=== PATIENT | female | born 1965 | race Caucasian/White ===

== ENCOUNTER 2021-10-27 13:07 | Outpatient (CLI) | payer MEDICARE, SELFPAY | END 2021-10-27 13:08 | disposition home or self-care (01) | LOC: NFLDREF 13:08 | PROVIDERS: PCP Internal Medicine; Visit Provider Internal Medicine | DX: E03.9 Hypothyroidism, unspecified (principal) | CPT/HCPCS: 84443 ==

== ENCOUNTER 2022-04-11 10:16 | Outpatient (CLI) | payer MEDICARE, SELFPAY ==
[2022-04-11 15:05] LABS: Albumin* 4.9 g/dL (3.3-5.0); Chloride* 104 mmol/L (96-114); Potassium* 4.5 mmol/L (3.6-5.1); Sodium* 139 mmol/L (135-149)
[2022-04-11 15:07] LABS: Bilirubin Total* 0.8 mg/dL (0.1-1.5); Carbon Dioxide* 26 mmol/L (20-32); Creatinine* 0.8 mg/dL (0.5-1.5); Estimated Glomerular Filt Rate 85 ml/min
[2022-04-11 15:08] LABS: Alanine Aminotransferase* 22 U/L (4-35); Alkaline Phosphatase* 101 U/L (40-150); Aspartate Amino Transferase* 43 U/L (12-35); Blood Urea Nitrogen* 18 mg/dL (7-30); Calcium* 9.4 mg/dL (8.4-10.6); Glucose* 90 mg/dL (60-115); Total Protein* 7.1 g/dL (6.0-8.3)
[2022-04-12 20:13] LABS: Immunoglobulin A 45 mg/dL (68-408); Immunoglobulin G 174 mg/dL (768-1632); Immunoglobulin M 41 mg/dL (35-263)
--- NOTE | 2022-05-05 12:38 | URNOTE ---
Received request for prior auth for Privigen ([id number]). Per Aaron Green at [facility], this has been approved, 15gms monthly x 4 doses, 05/03/2022-05/03/2023 Auth #[id number]
== END 2022-04-11 10:17 | disposition home or self-care (01) ==
PROVIDERS: PCP Internal Medicine; Visit Provider Internal Medicine
DX: G35 Multiple sclerosis (principal); I10 Essential (primary) hypertension; E03.9 Hypothyroidism, unspecified; R94.31 Abnormal electrocardiogram [ECG] [EKG]
CPT/HCPCS: 80053; 82784

== ENCOUNTER 2022-05-12 10:12 | Emergency (ER) | payer MEDICARE, SELFPAY ==
[2022-05-12 10:22] VITALS: BP 132/85; PULSE 84; RESP 22; TEMP 37.4; O2SAT 98; BMI 18.3
[2022-05-12] MEDS: LORazepam 2 MG/ML inj 0.5 MG IVP (11:50)
[2022-05-12] MEDS: 0.9 % SODIUM CHLORIDE 1000 ml 1,000 ML IV (11:50)
[2022-05-12 12:14] LABS: Basophils Absolute Auto 0.05 K/uL (0.00-0.30); Basophils Percent Auto 0.8 % (0.0-3.0); Eosinophils Absolute Auto 0.08 K/uL (0.00-0.50); Eosinophils Percent Auto 1.4 % (0.0-7.0); Hematocrit 39.3 % (33.0-51.0); Hemoglobin* 13.3 gm/dL (12.0-16.0); Immature Granulocytes Abs Auto 0.01 K/uL (0.00-0.30); Immature Granulocytes Pct Auto 0.2 %; Lymphocytes Percent Auto 28.8 % (20-44); Mean Corpuscular HGB Conc 34 gm/dL (32-36); Mean Corpuscular Hemoglobin 31 pg (26-34); Mean Corpuscular Volume 92 fL (80-100); Monocytes Percent Auto 7.6 % (0.0-11.0); Neutrophils Absolute Auto 3.62 K/uL (1.7-7.0); Neutrophils Percent Auto 61.2 % (42.0-72.0); Platelet Count* 208 K/uL (140-440); RDW Coefficient of Variation % 12.5 % (11.5-15.5); Red Blood Count 4.28 m/uL (4.00-5.20); White Blood Count* 5.91 K/uL (4.50-11.00)
[2022-05-12 12:22] LABS: Slide Review Reflex No
[2022-05-12 12:41] LABS: Chloride* 104 mmol/L (96-114); Potassium* 3.4 mmol/L (3.6-5.1); Sodium* 137 mmol/L (135-149)
[2022-05-12 12:44] LABS: Creatinine* 0.8 mg/dL (0.5-1.5); Est. Creatinine Clearance* 54.89; Estimated Glomerular Filt Rate 85 ml/min
[2022-05-12 12:45] LABS: Blood Urea Nitrogen* 17 mg/dL (7-30); Calcium* 8.7 mg/dL (8.4-10.6); Carbon Dioxide* 31 mmol/L (20-32); Glucose* 88 mg/dL (60-115)
[2022-05-12 12:48] LABS: C Reactive Protein* < 0.5 mg/dL (0.5-1.0)
--- NOTE | 2022-05-12 13:39 | ED_ITS ---
HPI - General Adult General Date Seen: 05/12/22 Chief complaint: Nausea/Vomiting Stated [facility], dizzy Time Seen by Provider: 05/12/22 11:01 Source: patient and family Mode of arrival: ambulatory Limitations: no limitations History of Present Illness HPI narrative: Patient is a 56-year-old female who was seen for dizziness and generalized weakness, [facility] to get her infusion of immunoglobulin, she felt so weak and was dizzy, and they sent her over here, she does have some Compazine she can use at home. Before her primary care doctor could call back to the [facility] she had been transferred to the emergency room. She denies a fevers chills she says she gets this dizziness from time to time, usually related to exacerbation of her MS. She has been found to have a very low level of immunoglobulin a, and thought to be improved with the infusion of IVIG. Denies any headaches, does have some diplopia but this is secondary to her MS. She she has no new numbness tingling or weakness, no vomiting, no fevers no chills, sore throat, diarrhea, abdominal pain, or any other real complaints. Related Data Home Medications Medication Instructions Recorded Confirmed albuterol sulfate 90 mcg/actuation 2 inhalation PRN 10/27/21 05/02/22 aerosol inhaler amlodipine 10 mg tablet 10 mg PO DAILY 10/27/21 05/02/22 gabapentin 100 mg capsule 100 mg PO TID 10/27/21 05/02/22 levothyroxine 75 mcg tablet 75 mcg PO DAILY 10/27/21 05/02/22 quetiapine 100 mg tablet 50 - 150 mg PO QHS 04/26/22 05/02/22 Previous Rx's Medication Instructions Recorded paroxetine HCl 10 mg tablet 10 mg PO QDAY Depression #90 tabs 03/02/22 paroxetine HCl 40 mg tablet 40 mg PO .Bedtime Anxiety #90 tabs 03/02/22 carbamazepine 100 mg 1 mg PO TID Pain #90 tabs 03/15/22 tablet,extended release,12 hr hydrochlorothiazide 12.5 mg tablet 12.5 mg PO QAM Hypertension #30 04/11/22 tabs prochlorperazine maleate 10 mg 10 mg PO BID PRN nausea and 05/12/22 tablet (Compazine) vomiting #30 tabs Allergies Allergy/AdvReac Type Severity Reaction Status Date / Time bupropion Allergy Severe Shock Verified 05/02/22 14:14 fluoxetine Allergy Severe Shock Verified 05/02/22 14:14 penicillin V Allergy Severe Anaphylaxis Verified 05/02/22 14:14 gadodiamide Allergy Mild Swelling Verified 05/02/22 14:14 on face and hives Sulfa drugs Allergy Severe Anaphylaxis Uncoded 05/02/22 14:14 Contrast dye Allergy Mild Swelling Uncoded 05/02/22 14:14 on face and hives Review of Systems Status of ROS: Reports: 10 or more systems reviewed and unremarkable except as noted in History and below [facility] Medical History Depression Graves disease Hypertension Hypothyroidism Nausea QT prolongation Social History Smoking Status: Never smoker Do you use any of these nicotine containing products: None Second hand tobacco smoke exposure: No How often do you have a drink containing alcohol: 4 or more times a week How many standard drinks containing alcohol do you have on a typical day: 1 or 2 How often do you have six or more drinks on one occasion: Never AUDIT-C Alcohol total score: 4 Non-prescribed substance use: denies use service: No Exam Narrative: Exam Narrative: Patient is speaking normally, no problem with slurring words, oriented x3. Head eyes ears nose and throat exam show equal pupils, no scleral icterus, extraocular muscles are normal, no facial droop, speech is normal, trachea normal and midline. Thyroid normal midline palpable not enlarged. Chest shows symmetrical rise bilaterally, normal auscultation with no wheezes, no increased work of breathing, no overt bruising or lesions seen, no tenderness is noted on auscultation. Heart sounds normal with no S3-S4 no murmurs clicks or gallops. Abdomen shows no obvious masses or hepatosplenomegaly, no organomegaly, bowel sounds are normal in all quadrants. No tenderness is noted also in all quadrants. Upper and lower extremities show normal power, normal range of motion, pulses are normal, sensations normal, fine motor movements are normal, pelvis is stable to rocking. Cervical spine shows normal range of motion, and palpably not tender. Thoracic spine shows normal range of motion, and palpably not tender, lumbar spine shows no tenderness to palpation percussion and is otherwise normal range of motion. Skin shows no rashes, petechiae or eccymosis. Const: Vital Signs, click to edit/add: Vital Signs - 24 hr 05/12/22 10:22 Temperature 99.4 F Pulse Rate [Pulse Oximeter] 84 Respiratory Rate 22 Blood Pressure [Ri ght Upper Arm] 132/85 Pulse Oximetry 98 Oxygen Delivery Me thod Room Air Documenting provider has reviewed patient's vital signs: yes Course Course Hospital Course: Life-threatening differential diagnosis considered include stroke, coronary artery disease, pneumonia, and heart failure. Other differential diagnosis include but are not limited to electrolyte imbalances, anemia, medication reactions, and urinary tract infection After 1 L of fluids and the lorazepam she felt improved was able to walk to the bathroom but still felt a little bit dizzy. She would like to go home, tried some crackers and this seemed to go right. I will give her prescription for some lorazepam, I did review the [employer] and she does not have any prescriptions for listed substances. I went over warning signs with this but I think this would be a decent anti nausea medication for us she does have prolonged QT syndrome any of the others can cause worsening of this. Vital Signs Vital signs: Initial Vital Signs Temperature 99.4 F 05/12/22 10:22 Temperature Source Temporal Artery Scan 05/12/22 10:22 Pulse Rate 84 05/12/22 10:22 Pulse Rhythm 05/12/22 10:22 Respiratory Rate 22 05/12/22 10:22 Blood Pressure 132/85 05/12/22 10:22 Blood Pressure Mean 100 05/12/22 10:22 Blood Pressure Position Left Lateral 05/12/22 10:22 Pulse Oximetry 98 05/12/22 10:22 Oxygen Delivery Method 05/12/22 10:22 Vital Signs Temperature 99.4 F 05/12/22 10:22 Pulse Rate 84 05/12/22 10:22 Respiratory Rate 22 05/12/22 10:22 Blood Pressure 132/85 05/12/22 10:22 Pulse Oximetry 98 05/12/22 10:22 Oxygen Delivery Method 05/12/22 10:22 Temperature 99.4 F 05/12/22 10:22 Pulse Rate 84 05/12/22 10:22 Respiratory Rate 22 05/12/22 10:22 Blood Pressure 132/85 05/12/22 10:22 Pulse Oximetry 98 05/12/22 10:22 Oxygen Delivery Method 05/12/22 10:22 Medical Decision Making MDM Narrative Medical decision making narrative: Life-threatening differential diagnosis considered include stroke, coronary artery disease, pneumonia, and heart failure. Other differential diagnosis include but are not limited to electrolyte imbalances, anemia, medication reactions, and urinary tract infection Lab Data Lab results reviewed: Yes I reviewed the patient's lab results Labs: Lab Results 05/12/22 05/12/22 Range/Units 11:45 11:45 WBC 5.91 (4.50-11.00) K/uL RBC 4.28 (4.00-5.20) m/uL Hgb 13.3 (12.0-16.0) gm/dL Hct 39.3 (33.0-51.0) % MCV 92 (80-100) fL MCH 31 (26-34) pg MCHC 34 (32-36) gm/dL RDW Coeff of Estrellita 12.5 (11.5-15.5) % Plt Count 208 (140-440) K/uL Neut % (Auto) 61.2 (42.0-72.0) % Lymph % (Auto) 28.8 (20-44) % [place] % (Auto) 7.6 (0.0-11.0) % Eos % (Auto) 1.4 (0.0-7.0) % Baso % (Auto) 0.8 (0.0-3.0) % Neut # (Auto) 3.62 (1.7-7.0) K/uL Lymph # (Auto) 1.70 (0.90-2.90) K/uL [place] # (Auto) 0.40 (0.00-0.90) K/UL Eos # (Auto) 0.08 (0.00-0.50) K/uL Baso # (Auto) 0.05 (0.00-0.30) K/uL Sodium 137 (135-149) mmol/L Potassium 3.4 L (3.6-5.1) mmol/L Chloride 104 (96-114) mmol/L Carbon Dioxide 31 (20-32) mmol/L BUN 17 (7-30) mg/dL Creatinine 0.8 (0.5-1.5) mg/dL Estimated Creat Clear 54.89 Estimated GFR 85 ml/min Glucose 88 (60-115) mg/dL Calcium 8.7 (8.4-10.6) mg/dL C-Reactive Protein < 0.5 L (0.5-1.0) mg/dL Discharge Plan Discharge Clinical Impression: Dizziness, Multiple sclerosis Patient Disposition: Home w/ Parent or Adult Condition: Improved Instructions: Vertigo (ED), Lightheadedness (ED), Dizziness (ED) Additional Instructions: Home rest use of lorazepam as needed, lots of fluids, follow-up for your infusion of your immunoglobulin. As needed. Prescriptions: No Action albuterol sulfate 90 mcg/actuation HFA aerosol inhaler 2 inhalation PRN levothyroxine 75 mcg tablet 75 mcg PO DAILY amlodipine 10 mg tablet 10 mg PO DAILY gabapentin 100 mg capsule 100 mg PO TID quetiapine 100 mg tablet 50 - 150 mg PO QHS Label Comments: TAKE ONE-HALF TO 1.5 TABLETS BY MOUTH EVERY NIGHT AT BEDTIME hydrochlorothiazide 12.5 mg tablet 12.5 mg PO QAM Qty: 30 2RF paroxetine HCl 10 mg tablet 10 mg PO QDAY Qty: 90 3RF paroxetine HCl 40 mg tablet 40 mg PO .Bedtime Qty: 90 3RF carbamazepine 100 mg tablet extended release 12 hr 1 mg PO TID Qty: 90 2RF prochlorperazine maleate [Compazine] 10 mg tablet 10 mg PO BID PRN (Reason: nausea and vomiting) Qty: 30 0RF Follow Up/Referrals: Nguyễn Orta MD [Primary Care Provider] - Stand Alone Forms: [employer] Info Instructions
== END 2022-05-12 13:52 | disposition home or self-care (01) ==
PROVIDERS: Emergency Provider Family Medicine; PCP Internal Medicine
DX: R42 Dizziness and giddiness (principal); G35 Multiple sclerosis
CPT/HCPCS: 36415; 80048; 85025; 86140; 96374; 99283; 99284; J2060; J7030

== ENCOUNTER 2022-06-16 11:00 | Outpatient (RCR) | payer MEDICARE, SELFPAY ==
--- NOTE | 2022-05-09 12:13 | URNOTE ---
Request received for authorization for?Jesus ([id number]). Prior authorization is approved for Privigen 15gms Q month X4 doses from 05/03/2022 to 05/03/2023. Per Aaron Green at [facility] [phone], Ref # [id number].
--- NOTE | 2022-05-09 13:30 | ONC.NURNOTE ---
The following note was found from the [employer] system: User: Danitza Quezada Date: 04/19/21 16:07 Type: Oncology Nurse Notes Received call from Bridgett with Dr. Rbuy Michel with [employer]. Pt seen by provider today. Pt to begin a different medication to treat MS; cancel all orders/appts for Ocrevus and IVIG. Appt's cancelled; pharmacy updated. Patient was then called to clarify that Dr. Michel was okay with this being prescribed, and patient states that Dr. Michel never wanted her off of this drug and she is getting this for low immunoglobins. Levels are low per labs checked by Dr. Orta. 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 She is scheduled at 1000, and she would have the two hours that she feels that are needed to stay in clinic if requested. Patient was notified that there are no guidelines in clinicalpharmacology stating that this is needed and in writers experience, patients tolerate this well. She was informed that she will be getting benadryl and that could cause drowsiness with driving following her infusion.
[2022-05-12 09:35] VITALS: BP 143/89; PULSE 83; RESP 16; TEMP 36.7; O2SAT 99
--- NOTE | 2022-05-12 10:42 | ONC.NURNOTE ---
Pt. arrived at 0930. assestment and vs wnl. patient requested the menu to order food. she also states forgot compazine at home. call placed to Dr. Orta in [facility] for Compazine. IVIG ordered and Pt given banadryl 50 po and tylenol 650 po. 1010 pt states nausea has increased. aprox 10cc bile in emesis bag. pt then asked to lay on the floor . states she feels dizzy. told her I was not comfortable treating her today and offered to take her to ER via w/c. pt stated yes. pt brought to ER via w/c. nurse to nurse report given to Glenna Muñoz RN. with pt. Alexandria Mckeon APRN aware and states pt should wait a week before attempting another IVIG treatment. Till she feels better. Dr. Orta aware.
[2022-05-19 10:06] LABS: Cholesterol* 249 mg/dL (90-199); Triglycerides* 69 mg/dL (40-149)
--- NOTE | 2022-05-19 10:10 | PC.NURSE ---
Addendum entered by Christina Beasley, TIO 05/19/22 11:56: Dr. Michel's nurse, Abelardo (direct) - [phone] Original Note: Provider contacts: Dr. Ruby Michel, neurologist [facility] - [phone] Jose David Ibanez, psychologist - [phone]
[2022-05-19 10:19] LABS: HDL Cholesterol* 133 mg/dL (>=50); LDL Cholesterol Calculated 102 mg/dL (<100)
[2022-05-19 10:28] VITALS: BP 123/86; PULSE 90; RESP 16; TEMP 37.1; O2SAT 96
[2022-05-19] MEDS: diphenhydrAMINE 25 MG CAPSULE 50 MG PO (10:41)
[2022-05-19] MEDS: ACETAMINOPHEN 325 MG TABLET 650 MG PO (10:41)
--- NOTE | 2022-05-19 15:59 | PC.NURSE ---
Pt present at [facility] for Privigen infusion. About 2 minutes after increasing rate from 56 cc per hour to 112 cc per hour pt called reporting burning and itching in her right medial arm. There was slight redness noted, also noted was that pt was rubbing the area to explain the sensations. Pt's peripheral IV was in her RIGHT lateral hand in a vein that appeared to dip down below the lateral wrist after the hand. Stopped infusion. Discussed with RN's and [employer]PERATIONS [employer]NAG[employer]. Applied ice and restarted infusion at the lower rate (56 cc per hour) for the completion of the infusion. Pt tolerated well.
[2022-06-16 10:51] VITALS: BP 130/90; PULSE 94; RESP 16; TEMP 37.1; O2SAT 96
[2022-06-16] MEDS: diphenhydrAMINE 25 MG CAPSULE 50 MG PO (11:02)
[2022-06-16] MEDS: ACETAMINOPHEN 325 MG TABLET 650 MG PO (11:02)
--- NOTE | 2022-07-13 11:16 | ONC.NURNOTE ---
Patient called to cancel her appointment for IVIG tomorrow. She is having issues following her infusions where she does not feel well for about one week following them. She talked with her commercial parts professional and they are doing blood work at their office to come up with a plan.
== END 2022-11-08 23:59 | disposition home or self-care (01) ==
LOC: CCIC 11:00
PROVIDERS: PCP Internal Medicine; Referring Provider Internal Medicine; Visit Provider Internal Medicine
DX: G35 Multiple sclerosis (principal)
CPT/HCPCS: 36415; 80061; 96365; 96366; 96413; 96415; 99211; A9270; J1459

== ENCOUNTER 2022-10-16 10:22 | Observation (INO) | payer MEDICARE, SELFPAY ==
[2022-10-16] VITALS (7 sets, daily range): BP systolic 127–156; BP diastolic 88–107; PULSE 70–91; RESP 16–22; TEMP 36.5–37; O2SAT 98–100; BMI 19.5; BMI 18.0
--- NOTE | 2022-10-16 11:01 | ED_ITS ---
HPI - Back Pain/Injury General Time Seen by Provider: 11:01 Date Seen: 10/16/22 Chief Complaint: Back Injury/Pain Stated Complaint: leg numbness Time Seen by Provider: 10/16/22 10:29 Source: patient and RN notes reviewed Mode of arrival: ambulatory Limitations: no limitations Related Data Home Medications Medication Instructions Recorded Confirmed albuterol sulfate 90 mcg/actuation 2 inh inhalation Q4H PRN 10/27/21 10/16/22 aerosol inhaler amlodipine 10 mg tablet 10 mg PO DAILY 10/27/21 10/16/22 gabapentin 100 mg capsule 100 mg PO TID 10/27/21 10/16/22 levothyroxine 75 mcg tablet 75 mcg PO DAILY 10/27/21 10/16/22 paroxetine HCl 40 mg tablet 40 mg PO HS Anxiety 05/19/22 05/31/22 quetiapine 25 mg tablet (Seroquel) 25 mg PO QHS 05/19/22 10/16/22 Previous Rx's Medication Instructions Recorded paroxetine HCl 10 mg tablet 10 mg PO QDAY Depression #90 tabs 03/02/22 hydrochlorothiazide 12.5 mg tablet 12.5 mg PO QAM Hypertension #30 04/11/22 tabs omeprazole 20 mg tablet,delayed 20 mg PO QDAY GERD #30 tabs 05/31/22 release carbamazepine 100 mg 1 mg (0.01 x 100 mg) PO TID Pain 07/05/22 tablet,extended release,12 hr #90 tabs Allergies Allergy/AdvReac Type Severity Reaction Status Date / Time bupropion Allergy Severe Shock Verified 10/16/22 10:44 fluoxetine Allergy Severe Shock Verified 10/16/22 10:44 penicillin V Allergy Severe Anaphylaxis Verified 10/16/22 10:44 Sulfa (Sulfonamide Allergy Severe Anaphylaxis Verified 10/16/22 10:44 Antibiotics) Gadolinium-Containing AdvReac Intermediate Hives Verified 10/16/22 10:44 Contrast Medi oxcarbazepine AdvReac Mild Gastrointestinal Verified 10/16/22 10:44 Upset [facility] Medical History (Updated 05/31/22 @ 10:38 by Nguyễn Orta MD) GERD (gastroesophageal reflux disease) ?K21.9 - Gastro-esophageal reflux disease without esophagitis (ICD-10) Nausea ?R11.0 - Nausea (ICD-10) Hypertension ?I10 - Essential (primary) hypertension (ICD-10) QT prolongation ?R94.31 - Abnormal electrocardiogram [ECG] [EKG] (ICD-10) Depression ?F32.A - Depression, unspecified (ICD-10) Graves disease ?E05.00 - Thyrotoxicosis with diffuse goiter without thyrotoxic crisis or storm (ICD-10) Hypothyroidism ?E03.9 - Hypothyroidism, unspecified (ICD-10) Social History Smoking Status: Never smoker Do you use any of these nicotine containing products: None Second hand tobacco smoke exposure: No How often do you have a drink containing alcohol: 4 or more times a week How many standard drinks containing alcohol do you have on a typical day: 1 or 2 How often do you have six or more drinks on one occasion: Never AUDIT-C Alcohol total score: 4 Non-prescribed substance use: denies use service: No Exam Const: Vital Signs, click to edit/add: Vital Signs - 24 hr 10/16/22 10:34 Temperature 98.6 F Pulse Rate [Pulse Oximeter] 91 Respiratory Rate 16 Blood Pressure [Ri ght Upper Arm] 131/100 H Pulse Oximetry 100 Oxygen Delivery Me thod Room Air Course Vital Signs Vital signs: Initial Vital Signs Temperature 98.6 F 10/16/22 10:34 Temperature Source Temporal Artery Scan 10/16/22 10:34 Pulse Rate 91 10/16/22 10:34 Respiratory Rate 16 10/16/22 10:34 Blood Pressure 131/100 H 10/16/22 10:34 Blood Pressure Mean 110 H 10/16/22 10:34 Blood Pressure Position Supine 10/16/22 10:34 Pulse Oximetry 100 10/16/22 10:34 Oxygen Delivery Method Room Air 10/16/22 10:34 Vital Signs Temperature 98.6 F 10/16/22 10:34 Pulse Rate 91 10/16/22 10:34 Respiratory Rate 16 10/16/22 10:34 Blood Pressure 131/100 H 10/16/22 10:34 Pulse Oximetry 100 10/16/22 10:34 Oxygen Delivery Method Room Air 10/16/22 10:34 Temperature 98.6 F 10/16/22 10:34 Pulse Rate 91 10/16/22 10:34 Respiratory Rate 16 10/16/22 10:34 Blood Pressure 131/100 H 10/16/22 10:34 Pulse Oximetry 100 10/16/22 10:34 Oxygen Delivery Method Room Air 10/16/22 10:34 Discharge Plan Discharge Prescriptions: No Action albuterol sulfate 90 mcg/actuation HFA aerosol inhaler 2 inh inhalation Q4H PRN levothyroxine 75 mcg tablet 75 mcg PO DAILY amlodipine 10 mg tablet 10 mg PO DAILY gabapentin 100 mg capsule 100 mg PO TID hydrochlorothiazide 12.5 mg tablet 12.5 mg PO QAM Qty: 30 2RF omeprazole 20 mg tablet,delayed release (DR/EC) 20 mg PO QDAY Qty: 30 3RF quetiapine [Seroquel] 25 mg tablet 25 mg PO QHS paroxetine HCl 40 mg tablet 40 mg PO HS paroxetine HCl 10 mg tablet 10 mg PO QDAY Qty: 90 3RF carbamazepine 100 mg tablet extended release 12 hr 1 mg PO TID Qty: 90 2RF Follow Up/Referrals: Nguyễn Orta MD [Primary Care Provider] -
--- NOTE | 2022-10-16 11:33 | CRLHL7_ITS ---
For Patients: As a result of the Century Cures Act, medical imaging exams and procedure reports are released immediately into your electronic medical record. You may view this report before your referring provider. If you have questions, please contact your health care provider. INDICATION: Right-sided low back pain. Lower extremity weakness. TECHNIQUE : Lumbar spine MRI without contrast. The following sequences were obtained: Sagittal T1, T2 weighted and STIR sequences. Axial T1 and T2 weighted sequences. COMPARISON: None. FINDINGS : Five lumbar type vertebral bodies, with the last fully formed disc space designated as L5-S1. Normal lumbar lordotic curve. No recent compression fracture or marrow replacing process. Lower cord/conus signal is normal. The conus terminates at a normal location. No intradural lesion. Cholelithiasis. T2 hyperintense foci within the right liver, reflecting cysts or hemangiomas. Discs/Endplates: L3-4 disc dehydration. Remaining discs are within normal limits. Findings at individual levels as follows: T12-L1: No spinal canal or neural foraminal stenosis. L1-2: No spinal canal or neural foraminal stenosis. L2-3: Mild disc bulge. No spinal canal or neural foraminal stenosis. L3-4: Tiny central protrusion with annular fissure minimally flattens the thecal sac. No spinal canal or neural foraminal stenosis. L4-5: Bilateral low-grade facet arthrosis. No spinal canal or neural foraminal stenosis. L5-S1: No spinal canal or neural foraminal stenosis. Imaged SI joints: Within normal limits. Imaged sacrum: Within normal limits. IMPRESSION: 1. Scattered minimal lumbar spondylosis without significant spinal canal/neural foraminal stenosis or neural impingement. 2. No intradural pathology. Lower cord/conus and cauda equina nerve roots are normal in appearance. 3. Cholelithiasis. Dictated by Solo Lai MD @ 10/16/2022 2:15:21 PM (Electronically Signed)
--- NOTE | 2022-10-16 11:33 | CRLHL7_ITS ---
For Patients: As a result of the Cures Act, medical imaging exams and procedure reports are released immediately into your electronic medical record. You may view this report before your referring provider. If you have questions, please contact your health care provider. INDICATION : Pain. Right-sided weakness. TECHNIQUE : Thoracic spine MRI without contrast. Demyelination protocol. The following sequences were obtained: Sagittal T1, T2 weighted and proton density sequences. Axial gradient sequence. FINDINGS: Patchy T2/PD hyperintensity throughout the thoracic cord and nearly every thoracic level, compatible with plaques. No cord atrophy. Normal alignment and curvature of the thoracic spine. No acute fracture or aggressive marrow lesion. Imaged mediastinal, retroperitoneal and paraspinous soft tissues are normal. Thoracic discs and facets are normal. No spinal canal or neural foraminal stenosis at any thoracic level. C6-7 disc osteophyte complex contacts the anterior cord with at least mild spinal canal stenosis. Stir hyperintensity within the endplates consistent with type 1 reactive marrow changes. IMPRESSION: 1. Numerous demyelinating plaques throughout the thoracic cord. 2. No spinal canal/neural foraminal stenosis or neural impingement at any thoracic level. C6-7 disc osteophyte complex contacts the anterior cord with at least mild spinal canal stenosis. Type 1 reactive marrow changes involving the endplates. Dictated by Solo Lai MD @ 10/16/2022 2:19:30 PM (Electronically Signed)
--- NOTE | 2022-10-16 11:49 | ED.BACK ---
HPI - Back Pain/Injury General Date Seen: 10/16/22 Chief Complaint: Back Injury/Pain Stated Complaint: leg numbness Time Seen by Provider: 10/16/22 10:29 Source: patient Mode of arrival: wheelchair History of Present Illness HPI Narrative: Patient is a 57-year-old female who suffers from MS, presents here with weakness in her lower extremities, right-sided back pain. The weakness is been progressive over the past 2-3 days, she has been doing a lot a lifting, of her , [place] horse [place], that she had increased weakness, she was unable to even get out of the car, had to be helped into the emergency room via wheelchair. Describes the weakness worse in her left than her right leg, she has some altered sensation lower extremities, which at baseline, is notable. She also has some mild incontinence of urine, but this is chronic and does wear depends. No history of any other trauma, documented elevated temperature, dysuria frequency, nausea vomiting, or other issues. He is followed Sugey Michel MD Neurology at the [facility]. MD elicited complaint: back pain Work related injury: No Related Data Home Medications Medication Instructions Recorded Confirmed albuterol sulfate 90 mcg/actuation 2 inh inhalation Q4H PRN 10/27/21 10/16/22 aerosol inhaler amlodipine 10 mg tablet 10 mg PO DAILY 10/27/21 10/16/22 gabapentin 100 mg capsule 100 mg PO TID 10/27/21 10/16/22 levothyroxine 75 mcg tablet 75 mcg PO DAILY 10/27/21 10/16/22 paroxetine HCl 40 mg tablet 40 mg PO HS Anxiety 05/19/22 05/31/22 quetiapine 25 mg tablet (Seroquel) 25 mg PO QHS 05/19/22 10/16/22 Previous Rx's Medication Instructions Recorded paroxetine HCl 10 mg tablet 10 mg PO QDAY Depression #90 tabs 03/02/22 hydrochlorothiazide 12.5 mg tablet 12.5 mg PO QAM Hypertension #30 04/11/22 tabs omeprazole 20 mg tablet,delayed 20 mg PO QDAY GERD #30 tabs 05/31/22 release carbamazepine 100 mg 1 mg (0.01 x 100 mg) PO TID Pain 07/05/22 tablet,extended release,12 hr #90 tabs Allergies Allergy/AdvReac Type Severity Reaction Status Date / Time bupropion Allergy Severe Shock Verified 10/16/22 10:44 fluoxetine Allergy Severe Shock Verified 10/16/22 10:44 penicillin V Allergy Severe Anaphylaxis Verified 10/16/22 10:44 Sulfa (Sulfonamide Allergy Severe Anaphylaxis Verified 10/16/22 10:44 Antibiotics) Gadolinium-Containing AdvReac Intermediate Hives Verified 10/16/22 10:44 Contrast Medi oxcarbazepine AdvReac Mild Gastrointestinal Verified 10/16/22 10:44 Upset Review of Systems Status of ROS: Reports: 10 or more systems reviewed and unremarkable except as noted in History and below [facility] Medical History GERD (gastroesophageal reflux disease) ?K21.9 - Gastro-esophageal reflux disease without esophagitis (ICD-10) Nausea ?R11.0 - Nausea (ICD-10) Hypertension ?I10 - Essential (primary) hypertension (ICD-10) QT prolongation ?R94.31 - Abnormal electrocardiogram [ECG] [EKG] (ICD-10) Depression ?F32.A - Depression, unspecified (ICD-10) Graves disease ?E05.00 - Thyrotoxicosis with diffuse goiter without thyrotoxic crisis or storm (ICD-10) Hypothyroidism ?E03.9 - Hypothyroidism, unspecified (ICD-10) Social History Smoking Status: Never smoker Do you use any of these nicotine containing products: None Second hand tobacco smoke exposure: No How often do you have a drink containing alcohol: 4 or more times a week How many standard drinks containing alcohol do you have on a typical day: 1 or 2 How often do you have six or more drinks on one occasion: Never AUDIT-C Alcohol total score: 4 Non-prescribed substance use: denies use service: No Exam Narrative: Exam Narrative: Patient is seen in room 5, he appears to be in no apparent distress speaking to me normally, her pupils equal round reactive to light her neck is supple, l'hermittes sign is negative. Chest is clear, easy respirations, heart sounds are normal, her abdomen is soft and scaphoid, no tenderness to palpation bowel sounds are normal, scar on her lower midline is notable. Well-healed. Back is no tenderness to palpation, she is able sit up for me a by itself, small bruises noted over approximately L1-T12. She tells me this is from her horse. No other bruising is noted. She is able to lift both legs off the bed, slightly weaker in her left verses right. Reflexive in her right-sided verses her left, EHLs great toe flexors ankle dorsiflexors plantar flexors knee flexors and extensors, hip flexors are graded 5/5 power bilaterally. Sensation is grossly normal, no rashes, Const: Vital Signs, click to edit/add: Vital Signs - 24 hr 10/16/22 10:34 10/16/22 13:56 10/16/22 14:56 Temperature 98.6 F Pulse Rate [Pulse Oximeter] 91 82 80 Respiratory Rate 16 20 22 Blood Pressure [Ri ght Upper Arm] 131/100 H 142/107 H 132/88 Pulse Oximetry 100 99 100 Oxygen Delivery Me thod Room Air Room Air Room Air Course Course Hospital Course: Potassium came back slightly low at 3.2. We will give her oral and IV replacement, weight on the read by Radiology of her thoracic MRI and lumbar MRI, the remainder of her laboratory work was reassuring Reevaluation(s) Time of Reevaluation #1: 14:40 Reevaluation #1: Patient describes the pain is worse, we will try some Toradol, she is having a lot of burning with the IV potassium I told my nurse that she can slower down or discontinue it. I will also order a ultrasound of her abdomen, to assess the cholelithiasis, as this could be a cause of right-sided back pain Time of Reevaluation #2: 15:44 Reevaluation #2: Patient has no pain in the right upper quadrant, her ultrasound [facility] Site . Site : 1965 Study: US Abdomen RUQ-10/16/2022 2:58:23 PM Ordering Physician: Jhoan Hartmann Final Report: INDICATION: Cholelithiasis on MRI. TECHNIQUE: Ultrasound abdomen limited. Sonographic images of the right upper quadrant were obtained using hair-scale and color Doppler images. COMPARISON: Lumbar spine MRI 10/16/2022 FINDINGS: Liver: Normal in size with cysts in the left lobe of liver measuring 1.2 centimeters. Gallbladder: Cholelithiasis with borderline gallbladder wall thickness is 3 millimeters. No pericholecystic fluid. Common bile duct: 3 mm. Pancreas: Partially obscured by bowel gas without discrete lesion. Right kidney: Normal in size. Normal echotexture and cortex. No masses, stones, or hydronephrosis. Vasculature: Proximal abdominal aorta and IVC are normal. IMPRESSION: 1. Cholelithiasis without sonographic evidence of cholecystitis. 2. Hepatic cysts, largest measuring 1.2 centimeters. Dictated by Bill Ferguson MD @ 10/16/2022 3:35:15 PM (Electronic Signature) Normal laboratory work, I discussed with her that we will do a road test, the hospital is at capacity, [facility], as the patient's that is that she may not be able to walk. I think a reasonable course here would be a road test, with a walker that she was at home, she feels comfortable going home. Urinalysis is negative, we can give her a small supply of oxycodone which she has used in the past for her pain. She will contact her neurologist, but this likely is a combination of him MS exacerbation, they heat, and a multitude of things. Time of Reevaluation #3: 16:23 Reevaluation #3: I was hopeful that we can send her home, but watch her walk with a walker, she buckled almost went to the ground, she is basically a 2 person assist at this point. Given this point I think admission, PT, and watchful waiting will improve the situation, she tells me she has been through this before, coordination with her neurologist tomorrow is also suggested. Spoke to the hospitalist Dr. Paula who accepted her. As we did have a bed open up. Vital Signs Vital signs: Initial Vital Signs Temperature 98.6 F 10/16/22 10:34 Temperature Source Temporal Artery Scan 10/16/22 10:34 Pulse Rate 91 10/16/22 10:34 Respiratory Rate 16 10/16/22 10:34 Blood Pressure 131/100 H 10/16/22 10:34 Blood Pressure Mean 110 H 10/16/22 10:34 Blood Pressure Position Supine 10/16/22 10:34 Pulse Oximetry 100 10/16/22 10:34 Oxygen Delivery Method Room Air 10/16/22 10:34 Vital Signs Temperature 98.6 F 10/16/22 10:34 Pulse Rate 91 10/16/22 10:34 Respiratory Rate 16 10/16/22 10:34 Blood Pressure 131/100 H 10/16/22 10:34 Pulse Oximetry 100 10/16/22 10:34 Oxygen Delivery Method Room Air 10/16/22 10:34 Temperature 98.6 F 10/16/22 10:34 Pulse Rate 80 10/16/22 14:56 Respiratory Rate 22 10/16/22 14:56 Blood Pressure 132/88 10/16/22 14:56 Pulse Oximetry 100 10/16/22 14:56 Oxygen Delivery Method Room Air 10/16/22 14:56 MDM - Back Pain/Injury MDM Narrative Medical decision making narrative: Life-threatening differential diagnosis considered include: Cauda equina an epidural abscess, other differential diagnosis considered includes sprain, contusion, nerve root entrapment, radiculopathy, muscle spasm, urolithiasis, lumbar fracture, pyelonephritis, appendicitis, biliary colic, as well as other etiologies. The patient denies saddle anesthesia bowel or bladder incontinence or lower extremity weakness, recent weight loss, or history of malignancy. I was able to speak to her neurologist Dr. Michel she suggested MRI of her thoracic and lumbar spine, and the workup that we described. Patient is agreeable to this Medical Records Attestation: I reviewed the patient's medical records. Lab Data Attestation: I reviewed the patient's lab results. Labs: Lab Results 10/16/22 10/16/22 Range/Units 11:52 15:30 WBC 5.30 (4.50-11.00) K/uL RBC 5.29 H (4.00-5.20) m/uL Hgb 16.4 H (12.0-16.0) gm/dL Hct 48.3 (33.0-51.0) % MCV 91 (80-100) fL MCH 31 (26-34) pg MCHC 34 (32-36) gm/dL RDW Coeff of Estrellita 12.4 (11.5-15.5) % Plt Count 227 (140-440) K/uL Neut % (Auto) 59.7 (42.0-72.0) % Lymph % (Auto) 28.7 (20-44) % Oldham % (Auto) 9.1 (0.0-11.0) % Eos % (Auto) 1.9 (0.0-7.0) % Baso % (Auto) 0.6 (0.0-3.0) % Neut # (Auto) 3.17 (1.7-7.0) K/uL Lymph # (Auto) 1.52 (0.90-2.90) K/uL Oldham # (Auto) 0.50 (0.00-0.90) K/UL Eos # (Auto) 0.10 (0.00-0.50) K/uL Baso # (Auto) 0.03 (0.00-0.30) K/uL Abs Immat Gran (auto) 0.00 (0.00-0.30) K/uL Imm/Tot Granulo (auto) 0.0 % Sodium 138 (135-149) mmol/L Potassium 3.2 L (3.6-5.1) mmol/L Chloride 99 (96-114) mmol/L Carbon Dioxide 30 (20-32) mmol/L BUN 20 (7-30) mg/dL Creatinine 1.0 (0.5-1.5) mg/dL Estimated Creat Clear 44.68 Estimated GFR 65 ml/min Glucose 92 (60-115) mg/dL Calcium 10.0 (8.4-10.6) mg/dL Total Bilirubin 0.5 (0.1-1.5) mg/dL Direct Bilirubin 0.0 (0.0-0.5) mg/dL AST 58 H (12-35) U/L ALT 35 (4-35) U/L Alkaline Phosphatase 107 (40-150) U/L C-Reactive Protein < 0.5 L (0.5-1.0) mg/dL Total Protein 8.0 (6.0-8.3) g/dL Albumin 5.1 H (3.3-5.0) g/dL Lipase 118 (23-300) U/L Urine Color Yellow (Yellow) Urine Appearance Clear (Clear) Urine pH 7.5 (5.0-8.5) Ur Specific Hertel 1.020 (1.000-1.030) Urine Protein Negative (Negative) Urine Glucose (UA) Negative (Negative) Urine Ketones 1+ A (Negative) Urine Blood Negative (Negative) Urine Nitrite Negative (Negative) Urine Bilirubin Negative (Negative) Urine Urobilinogen 0.2 (0.2-1.0) Ur Leukocyte Esterase Negative (Negative) Urine RBC 0-2 (0-2) Urine WBC 2-5 (0-5) Ur Squamous Epith Cells None (None-Few) Urine Bacteria None (None) Imaging Data Lumbar MRI: Attestation: I have reviewed the pertinent imaging results. Radiologist's impression: Patient: ELENA BYRD Facility: [facility] Site . Site : 1965 Study: MRI Spine Lumbar WO-10/16/2022 1:44:57 PM Ordering Physician: Jhoan Hartmann Final Report: INDICATION: Right-sided low back pain. Lower extremity weakness. TECHNIQUE : Lumbar spine MRI without contrast. The following sequences were obtained: Sagittal T1, T2 weighted and STIR sequences. Axial T1 and T2 weighted sequences. COMPARISON: None. FINDINGS : Five lumbar type vertebral bodies, with the last fully formed disc space designated as L5-S1. Normal lumbar lordotic curve. No recent compression fracture or marrow replacing process. Lower cord/conus signal is normal. The conus terminates at a normal location. No intradural lesion. Cholelithiasis. T2 hyperintense foci within the right liver, reflecting cysts or hemangiomas. Discs/Endplates: L3-4 disc dehydration. Remaining discs are within normal limits. Findings at individual levels as follows: T12-L1: No spinal canal or neural foraminal stenosis. L1-2: No spinal canal or neural foraminal stenosis. L2-3: Mild disc bulge. No spinal canal or neural foraminal stenosis. L3-4: Tiny central protrusion with annular fissure minimally flattens the thecal sac. No spinal canal or neural foraminal stenosis. L4-5: Bilateral low-grade facet arthrosis. No spinal canal or neural foraminal stenosis. L5-S1: No spinal canal or neural foraminal stenosis. Imaged SI joints: Within normal limits. Imaged sacrum: Within normal limits. IMPRESSION: 1. Scattered minimal lumbar spondylosis without significant spinal canal/neural foraminal stenosis or neural impingement. 2. No intradural pathology. Lower cord/conus and cauda equina nerve roots are normal in appearance. 3. Cholelithiasis. Dictated by Solo Lai MD @ 10/16/2022 2:15:21 PM (Electronic Signature) Patient: ELENA BYRD Facility: [facility] Site . Site : 1965 Study: MRI Spine Thoracic WO-10/16/2022 1:48:42 PM Ordering Physician: Jhoan Hartmann Final Report: INDICATION : Pain. Right-sided weakness. TECHNIQUE : Thoracic spine MRI without contrast. Demyelination protocol. The following sequences were obtained: Sagittal T1, T2 weighted and proton density sequences. Axial gradient sequence. FINDINGS: Patchy T2/PD hyperintensity throughout the thoracic cord and nearly every thoracic level, compatible with plaques. No cord atrophy. Normal alignment and curvature of the thoracic spine. No acute fracture or aggressive marrow lesion. Imaged mediastinal, retroperitoneal and paraspinous soft tissues are normal. Thoracic discs and facets are normal. No spinal canal or neural foraminal stenosis at any thoracic level. C6-7 disc osteophyte complex contacts the anterior cord with at least mild spinal canal stenosis. Stir hyperintensity within the endplates consistent with type 1 reactive marrow changes. IMPRESSION: 1. Numerous demyelinating plaques throughout the thoracic cord. 2. No spinal canal/neural foraminal stenosis or neural impingement at any thoracic level. C6-7 disc osteophyte complex contacts the anterior cord with at least mild spinal canal stenosis. Type 1 reactive marrow changes involving the endplates. Dictated by Solo Lai MD @ 10/16/2022 2:19:30 PM (Electronic Signature) Discharge Plan Discharge Clinical Impression: Back pain, Hx of multiple sclerosis, Cholelithiasis Patient Disposition: Admitted As Observation Condition: Stable
[2022-10-16 12:12] LABS: Basophils Absolute Auto 0.03 K/uL (0.00-0.30); Basophils Percent Auto 0.6 % (0.0-3.0); Eosinophils Percent Auto 1.9 % (0.0-7.0); Hematocrit 48.3 % (33.0-51.0); Hemoglobin* 16.4 gm/dL (12.0-16.0); Lymphocytes Absolute Auto 1.52 K/uL (0.90-2.90); Lymphocytes Percent Auto 28.7 % (20-44); Mean Corpuscular HGB Conc 34 gm/dL (32-36); Mean Corpuscular Hemoglobin 31 pg (26-34); Mean Corpuscular Volume 91 fL (80-100); Monocytes Percent Auto 9.1 % (0.0-11.0); Neutrophils Absolute Auto 3.17 K/uL (1.7-7.0); Neutrophils Percent Auto 59.7 % (42.0-72.0); Platelet Count* 227 K/uL (140-440); RDW Coefficient of Variation % 12.4 % (11.5-15.5); Red Blood Count 5.29 m/uL (4.00-5.20)
[2022-10-16 12:15] LABS: Albumin* 5.1 g/dL (3.3-5.0); Chloride* 99 mmol/L (96-114); Slide Review Reflex No; Sodium* 138 mmol/L (135-149)
[2022-10-16 12:16] LABS: Potassium* 3.2 mmol/L (3.6-5.1)
[2022-10-16 12:18] LABS: Est. Creatinine Clearance* 44.68; Estimated Glomerular Filt Rate 65 ml/min
[2022-10-16 12:19] LABS: Alanine Aminotransferase* 35 U/L (4-35); Alkaline Phosphatase* 107 U/L (40-150); Aspartate Amino Transferase* 58 U/L (12-35); Bilirubin Total* 0.5 mg/dL (0.1-1.5); Blood Urea Nitrogen* 20 mg/dL (7-30); Carbon Dioxide* 30 mmol/L (20-32); Glucose* 92 mg/dL (60-115); Lipase* 118 U/L (23-300)
[2022-10-16 12:26] LABS: C Reactive Protein* < 0.5 mg/dL (0.5-1.0)
[2022-10-16] MEDS: 0.9 % SODIUM CHLORIDE 1000 ml 1,000 ML IV ×2 (13:47→15:43)
[2022-10-16] MEDS: POTASSIUM CHLORIDE 10 MEQ/100 ML PIGGYBACK 100 MEQ IVPB (13:47)
[2022-10-16] MEDS: POTASSIUM CHLORIDE 10 MEQ CAPSULE ER 20 MEQ PO (13:51)
[2022-10-16] MEDS: KETOROLAC 30 MG/ML inj IVP (14:22)
--- NOTE | 2022-10-16 14:22 | CRLHL7_ITS ---
For Patients: As a result of the Century Cures Act, medical imaging exams and procedure reports are released immediately into your electronic medical record. You may view this report before your referring provider. If you have questions, please contact your health care provider. INDICATION: Cholelithiasis on MRI. TECHNIQUE: Ultrasound abdomen limited. Sonographic images of the right upper quadrant were obtained using hair-scale and color Doppler images. COMPARISON: Lumbar spine MRI 10/16/2022 FINDINGS: Liver: Normal in size with cysts in the left lobe of liver measuring 1.2 centimeters. Gallbladder: Cholelithiasis with borderline gallbladder wall thickness is 3 millimeters. No pericholecystic fluid. Common bile duct: 3 mm. Pancreas: Partially obscured by bowel gas without discrete lesion. Right kidney: Normal in size. Normal echotexture and cortex. No masses, stones, or hydronephrosis. Vasculature: Proximal abdominal aorta and IVC are normal. IMPRESSION: 1. Cholelithiasis without sonographic evidence of cholecystitis. 2. Hepatic cysts, largest measuring 1.2 centimeters. Dictated by Bill Ferguson MD @ 10/16/2022 3:35:15 PM (Electronically Signed)
--- NOTE | 2022-10-16 14:43 | ED.NURSE ---
potassium infusion was uncomfortable for the pt, slowed the infusion down to 50ml an hour with her sodium infusion.
[2022-10-16] MEDS: MORPHINE 4 MG/ML INJ IVP (15:11)
--- NOTE | 2022-10-16 15:21 | ED.NURSE ---
Tried ambulating pt up to commode after given Toradol, she was unable to get up d/t relief for her pain. She was then given Morphine, we will wait til it kicks in and then will get her up to the commode to get a UA.
--- NOTE | 2022-10-16 15:24 | ED.NURSE ---
Report given to nurse on pt.
[2022-10-16 15:42] LABS: Appearance Urine Clear (Clear); Bilirubin Urine Negative (Negative); Blood Urine Negative (Negative); Color Urine Yellow (Yellow); Glucose Urine Negative (Negative); Ketones Urine 1+ (Negative); Leukocyte Esterase Urine Negative (Negative); Nitrite Urine Negative (Negative); Protein Urine Negative (Negative); Urobilinogen Urine 0.2 (0.2-1.0); pH Urine 7.5 (5.0-8.5)
[2022-10-16 16:10] LABS: RBC Urine 0-2 (0-2)
--- NOTE | 2022-10-16 16:23 | ED.NURSE ---
was unable to ambulate 12 feet. has little feeling on her right side. did collapse with nurses holding her with gait belt. dr raymundo aware as he witnessed this inability to walk.
--- NOTE | 2022-10-16 17:00 | ED.NURSE ---
report was given to Tracy jay. did transfer to w/c and went to 249.
--- NOTE | 2022-10-16 17:50 | PM.IMHP1 ---
Hospitalist- H&P: HPI History of Present Illness Time Seen by Provider: 17:50 Date Seen: 10/16/22 Chief complaint: leg numbness Narrative: Yifan Nova is a 57 year old female with a history of MS who came in through the emergency department for her legs giving out. A week and a half ago close friends of her family had a son who unexpectedly in the middle of the night. Her was stricken with grief and had his antidepressant increased. He came home last Sunday complaining of constipation and was delirious and combative. She tells me this was a very stressful in intense time and she had to help lift him after which she had some right flank pain. He went to the hospital and has been discharged, now better. Unfortunately she continues to have right flank pain and on Sunday her legs collapsed out from under her. Today she was tending to her horse when she became weak and dizzy. She grabbed a hose and turned on to get cold water over her, but that did not help. She got in her car and drove to the ER. When she got here she felt mentally confused and felt like she could not get out of the car because she was so weak. She called the ER in they came out to get her. She says she has good strength, but her legs will just give out suddenly. She tells me that she has chronic left-sided numbness that feels worse than usual over the last few days. She was going to be sent home from the emergency department today, but her legs collapsed while she was trying to walk. She is currently not on any MS medication. She tells me her MS progression has stopped. Follows with Dr. Michel at [facility] neurology. Review of Systems Status of ROS: Reports: 10 or more systems reviewed and unremarkable except as noted in History and below [facility] Medical History (Updated 10/16/22 @ 21:33 by Macy Paula MD) Anxiety ?F41.9 - Anxiety disorder, unspecified (ICD-10) Pleural effusion ?J90 - Pleural effusion, not elsewhere classified (ICD-10) Hypogammaglobulinemia (~04/24/22) ?D80.1 - Nonfamilial hypogammaglobulinemia (ICD-10) Hyperlipidemia ?E78.5 - Hyperlipidemia, unspecified (ICD-10) Quadriparesis ?G82.50 - Quadriplegia, unspecified (ICD-10) Premature menopause ?E28.319 - Asymptomatic premature menopause (ICD-10) Left thyroid nodule ?E04.1 - Nontoxic single thyroid nodule (ICD-10) Trigeminal neuralgia of right side of face ?G50.0 - Trigeminal neuralgia (ICD-10) Migraine without aura ?G43.009 - Migraine without aura, not intractable, without status migrainosus (ICD-10) Urge incontinence ?N39.41 - Urge incontinence (ICD-10) Bipolar disorder ?F31.9 - Bipolar disorder, unspecified (ICD-10) HSV-2 (herpes simplex virus 2) infection ?B00.9 - Herpesviral infection, unspecified (ICD-10) 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 - Personal history of other endocrine, nutritional and metabolic disease (ICD-10) Hx of multiple sclerosis (~1999) ?G35 - Multiple sclerosis (ICD-10) Breast cancer (10/20/08) ?C50.919 - Malignant neoplasm of unspecified site of unspecified female breast (ICD-10) GERD (gastroesophageal reflux disease) ?K21.9 - Gastro-esophageal reflux disease without esophagitis (ICD-10) Nausea ?R11.0 - Nausea (ICD-10) Hypertension ?I10 - Essential (primary) hypertension (ICD-10) QT prolongation ?R94.31 - Abnormal electrocardiogram [ECG] [EKG] (ICD-10) Depression ?F32.A - Depression, unspecified (ICD-10) Hypothyroidism ?E03.9 - Hypothyroidism, unspecified (ICD-10) Surgical History (Updated 10/16/22 @ 17:09 by Macy Paula MD) S/P thyroid surgery ?Z98.890 - Other specified postprocedural states (ICD-10) [place] teeth extracted ?K08.409 - Partial loss of teeth, unspecified cause, unspecified class (ICD-10) S/P tonsillectomy ?Z90.89 - Acquired absence of other organs (ICD-10) Hx of cholecystectomy ?Z90.49 - Acquired absence of other specified parts of digestive tract (ICD-10) S/P breast reconstruction (~1991) ?Z98.890 - Other specified postprocedural states (ICD-10) H/O partial mastectomy (~1991) ?Z90.10 - Acquired absence of unspecified breast and nipple (ICD-10) H/O section ?Z98.891 - History of uterine scar from previous surgery (ICD-10) S/P cervical spinal fusion (~2003) ?Z98.1 - Arthrodesis status (ICD-10) S/P breast lumpectomy ?Z98.890 - Other specified postprocedural states (ICD-10) Family History (Updated 10/16/22 @ 17:09 by Macy Paula MD) Unknown Ovarian cancer Paternal Grandmother Ovarian cancer Father Psychiatric illness Prostate cancer Coronary artery disease Myocardial infarction, Onset Age: 32 Mother Celiac disease Diabetes Cardiovascular disease High cholesterol High blood pressure Thyroid disease Son Gluten intolerance Sister Bipolar disorder Social History (Updated 10/16/22 @ 21:13 by Macy Paula MD) Narrative: Active lifestyle. Lives with and son, who has prader-randall and autism. What is your current living situation?: I presently have a place to live Problems where you live: no known problems Problems where you live details: no In the past 12 months, utilities in danger of being shut off: no In the past 12 mos, have been you worried that your food would run out before you had money to buy more?: never true In the past 12 mos, the food you bought just didn't last and you didn't have money to buy more?: never true Highest level of school completed/degree received: Master's degree Smoking Status: Never smoker Do you use any of these nicotine containing products: None Second hand tobacco smoke exposure: No How often do you have a drink containing alcohol: 2-3 times a week Alcohol type: wine Alcohol type details: 8 oz wine QOD How many standard drinks containing alcohol do you have on a typical day: 1 or 2 How often do you have six or more drinks on one occasion: Never AUDIT-C Alcohol total score: 3 Non-prescribed substance use: denies use Caffeine: Yes (1 cup qday) How often does anyone, including family, friends and others, physically hurt you: never How often does anyone, including family, friends and others, insult or talk down to you: never How often does anyone, including family, friends and others, threaten you with harm: never How often does anyone, including family, friends and others, scream or curse at you: never service: No Meds Home Medications and Allergies Home Medications Medication Instructions Recorded Confirmed Type albuterol sulfate 90 mcg/actuation 2 inh inhalation Q4H PRN 10/27/21 10/16/22 History aerosol inhaler amlodipine 10 mg tablet 10 mg PO DAILY 10/27/21 10/16/22 History gabapentin 100 mg capsule 100 mg PO TID 10/27/21 10/16/22 History levothyroxine 75 mcg tablet 75 mcg PO DAILY 10/27/21 10/16/22 History quetiapine 25 mg tablet (Seroquel) 25 mg PO QHS PRN 05/19/22 10/16/22 History Allergies Allergy/AdvReac Type Severity Reaction Status Date / Time bupropion Allergy Severe Shock Verified 10/16/22 10:44 fluoxetine Allergy Severe Shock Verified 10/16/22 10:44 penicillin V Allergy Severe Anaphylaxis Verified 10/16/22 10:44 Sulfa (Sulfonamide Allergy Severe Anaphylaxis Verified 10/16/22 10:44 Antibiotics) Gadolinium-Containing AdvReac Intermediate Hives Verified 10/16/22 10:44 Contrast Medi oxcarbazepine AdvReac Mild Gastrointestinal Verified 10/16/22 10:44 Upset Exam Narrative: Exam Narrative: General: No acute distress. Awake alert oriented x3. HEENT: Normocephalic atraumatic, pupils equally round and reactive to light and accommodation. Oropharynx clear. Mucous membranes are moist. No cervical lymphadenopathy, thyromegaly or carotid bruits. No JVD. Cardiovascular: Regular rate and rhythm. No murmurs, gallops, or rubs. Chest: No increased work of breathing. Clear to auscultation bilaterally. No crackles or wheezes. Abdomen: Bowel sounds present. Soft, nondistended, nontender. No hepatosplenomegaly or masses. Back: Mildly tender to palpation near the right SI joint, without point tenderness at the joint. No spasms noted. Rectal: Anus is without lesions or fissures. Good rectal tone, no stool or masses in the vault. No blood or melena. Extremities: No edema, no cyanosis or clubbing. Skin: Multiple well-healed surgical scars. No jaundice, no pallor, no rashes. Neuro: Romberg is negative. She is able to move herself around in the bed, but asks for help to do so despite being able to do it herself. She describes a difference in feeling like numbness in the left side of her face and extremities. It is both in the left upper and left lower face. Cranial nerves 2-12 are intact. Extraocular movements are full. No nystagmus. No facial asymmetry. Tongue is midline. Peripheral vision and vision are grossly intact. Strength is 5/5 in all 4 extremities. Coordination is not intact in both lower extremities or the left arm. She tells me this is her baseline. Const: Vital Signs, click to edit/add: Vital Signs - 24 hr 10/16/22 10:34 10/16/22 13:56 10/16/22 14:56 Temperature 98.6 F Pulse Rate [Pulse Oximeter] 91 82 80 Respiratory Rate 16 20 22 Blood Pressure [Ri ght Upper Arm] 131/100 H 142/107 H 132/88 Pulse Oximetry 100 99 100 Oxygen Delivery Me thod Room Air Room Air Room Air Hospitalist - H&P: Result Labs Labs: Short CBC 10/16/22 Range/Units 11:52 WBC 5.30 (4.50-11.00) K/uL Hgb 16.4 H (12.0-16.0) gm/dL Hct 48.3 (33.0-51.0) % Plt Count 227 (140-440) K/uL BMP 10/16/22 11:52 Sodium 138 Potassium 3.2 L Chloride 99 Carbon Dioxide 30 BUN 20 Creatinine 1.0 Glucose 92 Calcium 10.0 Liver Function 10/16/22 Range/Units 11:52 Total Bilirubin 0.5 (0.1-1.5) mg/dL Direct Bilirubin 0.0 (0.0-0.5) mg/dL AST 58 H (12-35) U/L ALT 35 (4-35) U/L Alkaline Phosphatase 107 (40-150) U/L Albumin 5.1 H (3.3-5.0) g/dL Urine 10/16/22 Range/Units 15:30 Urine Color Yellow (Yellow) Urine Appearance Clear (Clear) Urine pH 7.5 (5.0-8.5) Ur Specific [place] 1.020 (1.000-1.030) Urine Protein Negative (Negative) Urine Glucose (UA) Negative (Negative) Ordering Physician: Shahbaz Staples M.D. Date of Service: 10/16/22 Procedure(s): MR lumbar spine wo con Accession Number(s): [id number] cc: Nguyễn Orta M.D.; Shahbaz Staples M.D.~ For Patients: As a result of the Cures Act, medical imaging exams and procedure reports are released immediately into your electronic medical record. You may view this report before your referring provider. If you have questions, please contact your health care provider. INDICATION: Right-sided low back pain. Lower extremity weakness. TECHNIQUE : Lumbar spine MRI without contrast. The following sequences were obtained: Sagittal T1, T2 weighted and STIR sequences. Axial T1 and T2 weighted sequences. COMPARISON: None. FINDINGS : Five lumbar type vertebral bodies, with the last fully formed disc space designated as L5-S1. Normal lumbar lordotic curve. No recent compression fracture or marrow replacing process. Lower cord/conus signal is normal. The conus terminates at a normal location. No intradural lesion. Cholelithiasis. T2 hyperintense foci within the right liver, reflecting cysts or hemangiomas. Discs/Endplates: L3-4 disc dehydration. Remaining discs are within normal limits. Findings at individual levels as follows: T12-L1: No spinal canal or neural foraminal stenosis. L1-2: No spinal canal or neural foraminal stenosis. L2-3: Mild disc bulge. No spinal canal or neural foraminal stenosis. L3-4: Tiny central protrusion with annular fissure minimally flattens the thecal sac. No spinal canal or neural foraminal stenosis. L4-5: Bilateral low-grade facet arthrosis. No spinal canal or neural foraminal stenosis. L5-S1: No spinal canal or neural foraminal stenosis. Imaged SI joints: Within normal limits. Imaged sacrum: Within normal limits. IMPRESSION: 1. Scattered minimal lumbar spondylosis without significant spinal canal/neural foraminal stenosis or neural impingement. 2. No intradural pathology. Lower cord/conus and cauda equina nerve roots are normal in appearance. 3. Cholelithiasis. Dictated by Solo Lai MD @ 10/16/2022 2:15:21 PM (Electronically Signed) Ordering Physician: Shahbaz Staples M.D. Date of Service: 10/16/22 Procedure(s): MR thoracic spine wo con Accession Number(s): [id number] cc: Nguyễn Orta M.D.; Shahbaz Staples M.D.~ For Patients: As a result of the Cures Act, medical imaging exams and procedure reports are released immediately into your electronic medical record. You may view this report before your referring provider. If you have questions, please contact your health care provider. INDICATION : Pain. Right-sided weakness. TECHNIQUE : Thoracic spine MRI without contrast. Demyelination protocol. The following sequences were obtained: Sagittal T1, T2 weighted and proton density sequences. Axial gradient sequence. FINDINGS: Patchy T2/PD hyperintensity throughout the thoracic cord and nearly every thoracic level, compatible with plaques. No cord atrophy. Normal alignment and curvature of the thoracic spine. No acute fracture or aggressive marrow lesion. Imaged mediastinal, retroperitoneal and paraspinous soft tissues are normal. Thoracic discs and facets are normal. No spinal canal or neural foraminal stenosis at any thoracic level. C6-7 disc osteophyte complex contacts the anterior cord with at least mild spinal canal stenosis. Stir hyperintensity within the endplates consistent with type 1 reactive marrow changes. IMPRESSION: 1. Numerous demyelinating plaques throughout the thoracic cord. 2. No spinal canal/neural foraminal stenosis or neural impingement at any thoracic level. C6-7 disc osteophyte complex contacts the anterior cord with at least mild spinal canal stenosis. Type 1 reactive marrow changes involving the endplates. Dictated by Solo Lai MD @ 10/16/2022 2:19:30 PM (Electronically Signed) Ordering Physician: Shahbaz Staples M.D. Date of Service: 10/16/22 Procedure(s): US abdomen limited Accession Number(s): [id number] cc: Nguyễn Orta M.D.; Shahbaz Staples M.D.~ For Patients: As a result of the Cures Act, medical imaging exams and procedure reports are released immediately into your electronic medical record. You may view this report before your referring provider. If you have questions, please contact your health care provider. INDICATION: Cholelithiasis on MRI. TECHNIQUE: Ultrasound abdomen limited. Sonographic images of the right upper quadrant were obtained using hair-scale and color Doppler images. COMPARISON: Lumbar spine MRI 10/16/2022 FINDINGS: Liver: Normal in size with cysts in the left lobe of liver measuring 1.2 centimeters. Gallbladder: Cholelithiasis with borderline gallbladder wall thickness is 3 millimeters. No pericholecystic fluid. Common bile duct: 3 mm. Pancreas: Partially obscured by bowel gas without discrete lesion. Right kidney: Normal in size. Normal echotexture and cortex. No masses, stones, or hydronephrosis. Vasculature: Proximal abdominal aorta and IVC are normal. IMPRESSION: 1. Cholelithiasis without sonographic evidence of cholecystitis. 2. Hepatic cysts, largest measuring 1.2 centimeters. Dictated by Bill Ferguson MD @ 10/16/2022 3:35:15 PM (Electronically Signed) Assessment and Plan Assessment and plan (1) Bilateral leg weakness: Problem comment: This appears to be acute on chronic. MRI back obtained in the emergency department. Dr. Gross spoke with the patient's neurologist, Dr. Michel who recommended observation admission if she continued to have weakness, which she did in the emergency department. Will obtain PT and OT consults. If she is yet unable to ambulate tomorrow, she may need rehab. Will avoid steroids due to history of bipolar disorder and having a reaction of kavon to steroids. Status: Acute (2) Hx of multiple sclerosis: Problem comment: Follows with Dr. Moi Michel, [facility] neurology. Has not been on medication for MS for some time. Status: Chronic (3) Cholelithiasis: Problem comment: She describes right flank pain, but this appears to be more right low back, possibly SI joint. I do not think the pain she is having is related to cholelithiasis. I think this is asymptomatic. Her AST is mildly elevated and I will recheck LFTs in the morning. Status: Acute (4) Back pain: Problem comment: Right low back, possibly SI joint or strain related to recently having to lift her . Will start ibuprofen and [place] p.r.n.. Status: Acute (5) Hypertension: Problem comment: Continue her home medications. Status: Chronic (6) Hypothyroidism: Problem comment: Continue levothyroxine. Status: Chronic
--- NOTE | 2022-10-16 19:12 | PC.NURSE ---
shift note: pt to floor via wc @ [id number]. Pt a&o x3. pt rating rt mid flank 08/02. Pt states she's tolerating pain at this time. Pt has periods of stress incont in brief. Pt up to bsc /walker. IV to rt hand patent. Pt states last BM 10/15/22. Pt tolerated regular diet. Report give to Naomi KINSEY
[2022-10-16] MEDS: IBUPROFEN 600 MG TABLET PO (20:22)
[2022-10-16] MEDS: GABAPENTIN 100 MG CAPSULE PO (22:07)
[2022-10-16] MEDS: SODIUM CHLORIDE 0.9 % (FLUSH) 10 ML SYRINGE 5 ML IVF (22:07)
[2022-10-16] MEDS: QUETIAPINE 25 MG TABLET PO ×2 (22:07→22:27)
[2022-10-16] MEDS: LEVOTHYROXINE 75 MCG TABLET PO (22:07)
[2022-10-16] MEDS: OMEPRAZOLE 20 MG CAPSULE DR PO (22:07)
[2022-10-17] MEDS: HYDROCODONE-ACETAMIN 5-325 MG 1 TAB PO (02:25)
[2022-10-17 03:00] VITALS: BP 119/89; PULSE 100; RESP 20; TEMP 36.7; O2SAT 96
--- NOTE | 2022-10-17 05:52 | PC.NURSE ---
SHIFT NOTE 19-: Pt is A&O, extremely talkative. Reported left flank pain, PRN Ibuprofen and [place] given with pt reporting adequate relief. Pt up to the BSC with 1 assist, tolerating well. Denies nausea, CP, and SOB. VSS on room air.
[2022-10-17 07:00] VITALS: BP 132/99; PULSE 84; RESP 20; TEMP 36.8; O2SAT 99
[2022-10-17 07:02] LABS: Albumin* 3.6 g/dL (3.3-5.0); Chloride* 107 mmol/L (96-114); Potassium* 3.3 mmol/L (3.6-5.1); Sodium* 141 mmol/L (135-149)
[2022-10-17 07:05] LABS: Alanine Aminotransferase* 24 U/L (4-35); Alkaline Phosphatase* 76 U/L (40-150); Aspartate Amino Transferase* 33 U/L (12-35); Bilirubin Total* 0.2 mg/dL (0.1-1.5); Blood Urea Nitrogen* 15 mg/dL (7-30); Carbon Dioxide* 29 mmol/L (20-32); Creatinine* 0.8 mg/dL (0.5-1.5); Est. Creatinine Clearance* 53.27; Estimated Glomerular Filt Rate 85 ml/min; Glucose* 89 mg/dL (60-115); Total Protein* 5.8 g/dL (6.0-8.3)
[2022-10-17 07:06] LABS: Calcium* 8.6 mg/dL (8.4-10.6)
[2022-10-17] MEDS: AMLODIPINE 10 MG TABLET PO (09:49)
[2022-10-17] MEDS: GABAPENTIN 100 MG CAPSULE PO ×2 (09:49→13:42)
[2022-10-17] MEDS: hydroCHLOROthiazide 12.5 MG CAPSULE PO (09:49)
[2022-10-17] MEDS: SODIUM CHLORIDE 0.9 % (FLUSH) 10 ML SYRINGE 5 ML IVF (09:50)
[2022-10-17] MEDS: OMEPRAZOLE 20 MG CAPSULE DR PO (09:50)
--- NOTE | 2022-10-17 10:05 | REH.OT ---
Patient refused OT evaluation.
[2022-10-17 10:51] VITALS: BMI 17.9
[2022-10-17 11:00] VITALS: BP 142/108; PULSE 100; RESP 18; O2SAT 97
--- NOTE | 2022-10-17 11:49 | P.DS_ITS ---
DS: Providers Provider Date Seen: 10/17/22 Date of admission: 10/16/22 17:09 Primary care physician: Nguyễn Orta MD Admitting Clinician: Macy Paula MD Consults: PT and SW Attending Physician on discharge: Matilda Mccoy MD Date of Discharge: 10/17/22 DS: Diagnosis Discharge Diagnosis (1) Bilateral leg weakness: Status: Acute Problem details: - appeared to be acute on chronic. MRI back obtained in the emergency department - Dr. tSaples in ED spoke with the patient's neurologist, Dr. Michel who recommended observation admission and therapies - cleared by PT on hospital day 1, recommends discussing referral with PCP for an AFO (foot drop) (2) Hx of multiple sclerosis: Status: Chronic Problem details: - Follows with Dr. Moi Michel, [facility] neurology. Has not been on medication for MS for some time. (3) Cholelithiasis: Status: Acute Problem details: - on admission, described right flank pain, but this appears to be more right low back, possibly SI joint. - cholelithiasis overall appeared asymptomatic. Her AST is mildly elevated, remained stable. Normal bilirubin during stay - outpatient General Surgery f/u (4) Back pain: Status: Acute Problem details: - right low back, possibly SI joint or strain related to recently having to lift her . Will start ibuprofen and [place] p.r.n.. (5) Hypertension: Status: Chronic Problem details: Continue her home medications. (6) Hypothyroidism: Status: Chronic Problem details: Continue levothyroxine. DS: Summary Hospital Course Hospital Course: Arlene is a very pleasant 57-year-old female with a history of MS, who presented to emergency department with back pain and weakness. MRI of the L and T-spine revealed MS sequela without any acute abnormalities. She was found to have cholelithiasis without evidence of cholecystitis. On hospital day 1, she was feeling improved. She was seen by PT, who cleared her for discharge home. They do recommend discussing a referral with PCP for an AFO as an outpatient. She will have routine follow-up with her PCP and Neurology. Time Spent with Patient Time attestation: Total time spent providing and/or coordinating discharge services: Time spent: Less than 30 minutes Exam Narrative: Exam Narrative: GEN: Alert and oriented, nontoxic CV: RRR, No concerning murmurs, rubs, or gallops R: LCTA bilaterally without concerning wheezing Skin: Abrasion over right wrist from recent fall Neuro: Formal neurologic exam not performed as patient recently seen by PT and had MRI Psych: Appropriate Const: Vital Signs, click to edit/add: Vital Signs - 24 hr 10/16/22 13:56 10/16/22 14:56 10/16/22 17:20 Temperature 97.7 F Pulse Rate [Pulse Oximeter] 82 80 Pulse Rate [Right Brachial] 78 Respiratory Rate 20 22 20 Blood Pressure [Ri ght Arm] 156/100 H Blood Pressure [Ri ght Upper Arm] 142/107 H 132/88 Pulse Oximetry 99 100 98 Oxygen Delivery Me thod Room Air Room Air Room Air 10/16/22 17:20 10/16/22 18:30 10/16/22 19:00 Temperature 98.5 F Pulse Rate [Pulse Oximeter] Pulse Rate [Right Brachial] 80 Respiratory Rate 20 16 Blood Pressure [Ri ght Arm] 127/90 H Blood Pressure [Ri ght Upper Arm] Pulse Oximetry 98 98 100 Oxygen Delivery Me thod Room Air Room Air 10/16/22 23:00 10/17/22 03:00 10/17/22 07:00 Temperature 98.1 F 98.0 F 98.3 F Pulse Rate [Pulse Oximeter] Pulse Rate [Right Brachial] 70 100 84 Respiratory Rate 18 20 20 Blood Pressure [Ri ght Arm] 134/91 H 119/89 132/99 H Blood Pressure [Ri ght Upper Arm] Pulse Oximetry 98 96 99 Oxygen Delivery Me thod Room Air Room Air Room Air DS: Data Data Completed and Pending Labs on day of discharge: Labs from last 24 hours 10/17/22 10/16/22 10/16/22 05:50 15:30 11:52 WBC 5.30 RBC 5.29 H Hgb 16.4 H Hct 48.3 MCV 91 MCH 31 MCHC 34 RDW Coeff of [place] 12.4 Plt Count 227 Neut % (Auto) 59.7 Lymph % (Auto) 28.7 [place] % (Auto) 9.1 Eos % (Auto) 1.9 Baso % (Auto) 0.6 Neut # (Auto) 3.17 Lymph # (Auto) 1.52 [place] # (Auto) 0.50 Eos # (Auto) 0.10 Baso # (Auto) 0.03 Abs Immat Gran (auto) 0.00 Imm/Tot Granulo (auto) 0.0 Sodium 141 138 Potassium 3.3 L 3.2 L Chloride 107 99 Carbon Dioxide 29 30 BUN 15 20 Creatinine 0.8 1.0 Estimated Creat Clear 53.27 44.68 Estimated GFR 85 65 Glucose 89 92 Calcium 8.6 10.0 Total Bilirubin 0.2 0.5 Direct Bilirubin 0.0 AST 33 58 H ALT 24 35 Alkaline Phosphatase 76 107 C-Reactive Protein < 0.5 L Total Protein 5.8 L 8.0 Albumin 3.6 5.1 H Lipase 118 Urine Color Yellow Urine Appearance Clear Urine pH 7.5 Ur Specific [place] 1.020 Urine Protein Negative Urine Glucose (UA) Negative Urine Ketones 1+ A Urine Blood Negative Urine Nitrite Negative Urine Bilirubin Negative Urine Urobilinogen 0.2 Ur Leukocyte Esterase Negative Urine RBC 0-2 Urine WBC 2-5 Ur Squamous Epith Cells None Urine Bacteria None Discharge Plan Discharge Disposition: Home, Self-Care Date of Admission: 10/16/22 17:09 Attending Provider on Discharge: Matilda Mccoy Primary Care Provider: Nguyễn Orta Condition: Improved Anticipated Discharge Date/Time: 10/17/22 11:38 Discharge Medications: New hydrocodone-acetaminophen 5-325 mg Tablet 1 tab PO Q6H PRNQty: 20 0RF Rx Instructions: + stool softener Continued albuterol sulfate 90 mcg/actuation HFA aerosol inhaler 2 inh inhalation Q4H PRN levothyroxine 75 mcg tablet 75 mcg PO DAILY amlodipine 10 mg tablet 10 mg PO DAILY gabapentin 100 mg capsule 100 mg PO TID hydrochlorothiazide 12.5 mg tablet 12.5 mg PO QAM Qty: 30 2RF omeprazole 20 mg tablet,delayed release (DR/EC) 20 mg PO QDAY Qty: 30 3RF quetiapine [Seroquel] 25 mg tablet 25 mg PO QHS PRN carbamazepine 100 mg tablet extended release 12 hr 1 mg PO TID Qty: 90 2RF Discharge Orders: Discharge Order (Routine); Ordered 10/17/22 Ordered By: Matilda Mccoy Patient Education: Hydrocodone/Acetaminophen (By mouth) (Vicodin, [place], Lortab ), Multiple Sclerosis (DC) Additional Instructions: See Dr. Michel in f/u for your hospitalization. For pain, [place] as needed (Sent to pharmacy) - please take with stool softener. The ultrasound showed cholelithiasis with absence of any obstruction. Routine outpatient followup with a General Surgeon is not a bad idea to discuss elective cholecystectomy. Activity Level: Activity as Tolerated and No strenuous activity Discharge Diet: Regular Diet Detail: You may feel better on a low fat diet with the gallstones. Follow Up Appointments: Nguyễn Orta MD [Primary Care Provider] - 10/23/22 4:00 pm ([facility] for follow-up.) Forms: [employer] Info Instructions
--- NOTE | 2022-10-17 13:27 | PC.SOCIAL ---
Per therapies pt. moved well no needs identified. Pt. will discharge home today.
--- NOTE | 2022-10-17 13:54 | PC.NURSE ---
PATIENT ALERT AND ORIENTED, VERY TALKATIVE WITH STAFF, UP SBA WITH WALKER TOLERATING FAIRLY, ABLE TO AMBULATE WITH PHYSICAL THERAPY, TOLERATING REGULAR DIET, DECLINING PAIN, PATIENT DECLINED GOING OVER ENTIRE DISCHARGED BUT VERBALIZED UNDERSTAGING OF F/U APPOINTMENTS, IV REMOVED, PRESENT FOR DISCHARGED LEFT VIA WHEELCHAIR.
--- NOTE | 2022-10-17 14:11 | PC.NURSE ---
PATIENT LEFT BEHIND FLOWER PINK CANE, PHONED PATIENT AND PATIENT WILL PSYCHIATRIC CLINICAL NURSE SPECIALIST IN SUNDAY, CANE IN ROOM 253.
== END 2022-10-17 14:00 | disposition home or self-care (01) ==
LOC: ED 16:18 → MEDSURG 17:09
PROVIDERS: Admitting Provider Family Medicine; Emergency Provider Family Medicine; PCP Internal Medicine; Visit Provider Family Medicine
DX: M62.81 Muscle weakness (generalized) (principal); G35 Multiple sclerosis; K80.20 Calculus of gallbladder without cholecystitis without obstruction; M54.9 Dorsalgia, unspecified; E03.9 Hypothyroidism, unspecified; E87.6 Hypokalemia; I10 Essential (primary) hypertension; Z79.899 Other long term (current) drug therapy
CPT/HCPCS: 36415; 72146; 72148; 76705; 80048; 80053; 80076; 81001; 83690; 85025; 86140; 96361; 96365; 96366; 96375; 97116; 97162; 97530; 99284; 99285; A9270; G0378; J1885; J2270; J3480; J7030

== ENCOUNTER 2022-10-23 16:25 | Outpatient (CLI) | payer MEDICARE, SELFPAY | END 2022-10-23 16:26 | disposition home or self-care (01) | PROVIDERS: PCP Internal Medicine; Visit Provider Internal Medicine | DX: G35 Multiple sclerosis (principal); I10 Essential (primary) hypertension; E03.9 Hypothyroidism, unspecified | CPT/HCPCS: 80053; 82784 ==

== ENCOUNTER 2022-11-21 10:39 | Observation (INO) | payer MEDICARE, SELFPAY ==
[2022-11-21] VITALS (8 sets, daily range): BP systolic 124–141; BP diastolic 94–102; PULSE 73–96; RESP 16–18; TEMP 36.2–36.4; O2SAT 96–100; BMI 18.9
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
[2022-11-21] MEDS: TRAMADOL HCL 50 MG TABLET PO ×2 (11:50→13:37)
--- NOTE | 2022-11-21 13:55 | ED.NURSE ---
Pt did not tolerate initial lab draw attempt well. Pt requesting she get IV fluids first to help with further blood draw attempts later. MD notified. MD ordered IV placement and fluids. 24G IV placed in pt R hand, lab in room again to attempt another draw.
--- NOTE | 2022-11-21 14:15 | ED.NURSE ---
Pam Do from [facility] in to speak with ptFlory
[2022-11-21] MEDS: LACTATED RINGERS 1000 ML 1,000 ML IV (14:17)
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
[2022-11-21 14:22] LABS: Basophils Absolute Auto 0.06 K/uL (0.00-0.30); Eosinophils Absolute Auto 0.09 K/uL (0.00-0.50); Eosinophils Percent Auto 1.5 % (0.0-7.0); Hematocrit 44.5 % (33.0-51.0); Hemoglobin* 14.8 gm/dL (12.0-16.0); Immature Granulocytes Abs Auto 0.01 K/uL (0.00-0.30); Immature Granulocytes Pct Auto 0.2 %; Lymphocytes Percent Auto 26.4 % (20-44); Mean Corpuscular HGB Conc 33 gm/dL (32-36); Mean Corpuscular Hemoglobin 31 pg (26-34); Mean Corpuscular Volume 92 fL (80-100); Monocytes Percent Auto 6.8 % (0.0-11.0); Neutrophils Percent Auto 64.1 % (42.0-72.0); Platelet Count* 252 K/uL (140-440); RDW Coefficient of Variation % 12.8 % (11.5-15.5); Red Blood Count 4.82 m/uL (4.00-5.20); White Blood Count* 6.07 K/uL (4.50-11.00)
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
[2022-11-21 14:37] LABS: Albumin* 4.6 g/dL (3.3-5.0); Chloride* 100 mmol/L (96-114); Potassium* 3.4 mmol/L (3.6-5.1); Sodium* 140 mmol/L (135-149)
[2022-11-21 14:39] LABS: Creatinine* 0.9 mg/dL (0.5-1.5); Est. Creatinine Clearance* 48.19; Estimated Glomerular Filt Rate 74 ml/min
[2022-11-21 14:40] LABS: Alanine Aminotransferase* 55 U/L (4-35); Alkaline Phosphatase* 92 U/L (40-150); Anion Gap 11 mEq/L (7-15); Aspartate Amino Transferase* 45 U/L (12-35); Bilirubin Total* 0.5 mg/dL (0.1-1.5); Blood Urea Nitrogen* 20 mg/dL (7-30); Calcium* 9.4 mg/dL (8.4-10.6); Carbon Dioxide* 29 mmol/L (20-32); Glucose* 86 mg/dL (60-115); Total Protein* 7.1 g/dL (6.0-8.3)
[2022-11-21 14:41] LABS: Magnesium* 2.2 mg/dL (1.5-2.6)
[2022-11-21 14:50] LABS: Slide Review Reflex No
--- NOTE | 2022-11-21 15:47 | ED.NURSE ---
Pt assisted to bedside commode to void.
[2022-11-21 15:56] LABS: Amphetamine Screen Urine Negative (Negative); Barbiturate Screen Urine Negative (Negative); Benzodiazepines Screen Urine Negative (Negative); Cannabinoid Screen Urine Negative (Negative); Cocaine Screen Urine Negative (Negative); Methadone Screen Urine Negative (Negative); Methamphetamines Screen Urine Negative (Negative); Opiate Screen Urine Negative (Negative); Oxycodone Screen Urine Negative (Negative); Phencyclidine Screen Urine Negative (Negative); Tricyclic Antidepressant Urine POSITIVE (Negative)
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
--- NOTE | 2022-11-21 17:40 | ED.NURSE ---
Pt provided with dinner meal tray.
--- NOTE | 2022-11-21 17:55 | ED.NURSE ---
DEC assessment started.
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
--- NOTE | 2022-11-21 19:08 | ED.NURSE ---
Report called to M/S RN.
[2022-11-21] MEDS: 0.9 % SODIUM CHLORIDE 1000 ml 1,000 ML 125 ML IV (22:12)
[2022-11-21] MEDS: SODIUM CHLORIDE 0.9 % (FLUSH) 10 ML SYRINGE 5 ML IVF (22:12)
[2022-11-21] MEDS: GABAPENTIN 100 MG CAPSULE PO (22:13)
--- NOTE | 2022-11-21 22:39 | PC.NURSE ---
End of Shift: Pt arrived to unit via ED around 1919. Pt c/o right leg pain. Pt has extensive health hx as well as a difficult home life currently. Pt has difficulty walking, pivots to commode from bed well with one SBA. IV in right hand patent and intact, NS ordered and running at 125cc/hr. Continent with bladder with BSC, no BM throughout shift.
[2022-11-22] VITALS (9 sets, daily range): BP systolic 96–135; BP diastolic 70–93; PULSE 75–86; RESP 16–18; TEMP 36.1–37.2; O2SAT 98–100; BMI 17.6
[2022-11-22] MEDS: TRAMADOL HCL 50 MG TABLET PO ×3 (00:25→17:53)
[2022-11-22] MEDS: QUETIAPINE 25 MG TABLET 50 MG PO ×2 (00:31→21:08)
[2022-11-22] MEDS: 0.9 % SODIUM CHLORIDE 1000 ml 1,000 ML 125 ML IV ×3 (05:51→21:04)
[2022-11-22] MEDS: LEVOTHYROXINE 75 MCG TABLET PO (05:52)
--- NOTE | 2022-11-22 06:39 | PC.NURSE ---
Patient is alert and oriented x 4. Pleasant and cooperative with cares. Pain reported to right thigh, bilateral knees and bilateral ankles: patient received PRN Tramadol with effective results. Transfers with SBA and pivot transfer onto bedside commode, continent of bladder and bowel.
[2022-11-22] MEDS: AMLODIPINE 10 MG TABLET PO (08:53)
[2022-11-22] MEDS: hydroCHLOROthiazide 12.5 MG CAPSULE PO (08:53)
[2022-11-22] MEDS: GABAPENTIN 100 MG CAPSULE PO ×3 (08:53→21:07)
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
[2022-11-22] MEDS: ACETAMINOPHEN 325 MG TABLET 975 MG PO (11:20)
--- NOTE | 2022-11-22 15:06 | PC.NURSE ---
End of shift- VSS on RA. Alert and orientated, continuously rambles on about random things throughout the day. Does not stop talking, also states grandiose things that do not add up. Pleasant and understanding despite this. Rates her pain at 10/10 throughout the shift, no physical indicators of her being in pain. PRN tramadol and tylenol given 1x this shift, ice to BLE. Ax2 pivot on to the commode, she gets very anxious when she gets up. No other physical complaints during the shift other than RLE pain. She also reports continuous numbness in BLE as well as tingling. OT got her up at 1300 and she reported feeling dizzy, BP check was fine.
[2022-11-22] MEDS: PARoxetine 20 MG TABLET 40 MG PO (17:54)
--- NOTE | 2022-11-22 21:50 | PC.NURSE ---
VSS. Reports feeling about the same as yesterday other than an increase in urinary incontinence, which is normal for her intermittently due to her MS. Reports several life stressors with son and estranged . Ice to lower extremities per request for discomfort. Requesting 100mg Seroquel at HS. Up to BSC with [address] arm around writers shoulder during pivot transfer and said, Just don't 'Me Too' me
[2022-11-23] MEDS: TRAMADOL HCL 50 MG TABLET PO (01:15)
[2022-11-23 03:00] VITALS: BP 118/79; PULSE 88; RESP 18; TEMP 36.1; O2SAT 99
[2022-11-23] MEDS: 0.9 % SODIUM CHLORIDE 1000 ml 1,000 ML 125 ML IV (05:30)
[2022-11-23] MEDS: LEVOTHYROXINE 75 MCG TABLET PO (05:31)
--- NOTE | 2022-11-23 06:31 | PC.NURSE ---
End of shift: A&O pleasant and cooperative. Pt is quite talkative w/ rambling statements. VSS w/ sats >90% on RA. Rating leg pain 10/02. PRN tramadol given, pt sleeping on reassessment. Pt woke up in the middle of the night and stating ?I feel short of breath and like my blood pressure is high??Upon assessment BP stable. Pt stated I woke up because I was having a nightmare about my ?. [employer] Developer sat and talked w/ pt. Pt stated SOB resolved. A1 w/ gait belt to commode.
[2022-11-23 06:45] LABS: Basophils Absolute Auto 0.04 K/uL (0.00-0.30); Basophils Percent Auto 0.8 % (0.0-3.0); Eosinophils Absolute Auto 0.21 K/uL (0.00-0.50); Eosinophils Percent Auto 4.4 % (0.0-7.0); Hemoglobin* 11.3 gm/dL (12.0-16.0); Lymphocytes Absolute Auto 1.27 K/uL (0.90-2.90); Lymphocytes Percent Auto 26.4 % (20-44); Mean Corpuscular HGB Conc 33 gm/dL (32-36); Mean Corpuscular Hemoglobin 31 pg (26-34); Mean Corpuscular Volume 94 fL (80-100); Monocytes Percent Auto 7.7 % (0.0-11.0); Neutrophils Absolute Auto 2.92 K/uL (1.7-7.0); Neutrophils Percent Auto 60.7 % (42.0-72.0); Platelet Count* 206 K/uL (140-440); RDW Coefficient of Variation % 13.1 % (11.5-15.5); Red Blood Count 3.61 m/uL (4.00-5.20); White Blood Count* 4.81 K/uL (4.50-11.00)
[2022-11-23 06:47] LABS: Slide Review Reflex No
[2022-11-23 06:58] LABS: Chloride* 110 mmol/L (96-114); Sodium* 142 mmol/L (135-149)
[2022-11-23 07:01] LABS: Alanine Aminotransferase* 30 U/L (4-35); Alkaline Phosphatase* 63 U/L (40-150); Anion Gap 4 mEq/L (7-15); Aspartate Amino Transferase* 26 U/L (12-35); Bilirubin Total* 0.2 mg/dL (0.1-1.5); Blood Urea Nitrogen* 23 mg/dL (7-30); Carbon Dioxide* 28 mmol/L (20-32); Creatinine* 0.8 mg/dL (0.5-1.5); Est. Creatinine Clearance* 50.73; Estimated Glomerular Filt Rate 85 ml/min; Glucose* 102 mg/dL (60-115)
[2022-11-23 07:02] LABS: Calcium* 8.7 mg/dL (8.4-10.6)
[2022-11-23 07:57] VITALS: BP 128/90; PULSE 85; RESP 18; TEMP 37; O2SAT 97
[2022-11-23] MEDS: AMLODIPINE 10 MG TABLET PO (08:41)
[2022-11-23] MEDS: GABAPENTIN 100 MG CAPSULE PO (08:41)
[2022-11-23] MEDS: hydroCHLOROthiazide 12.5 MG CAPSULE PO (08:41)
[2022-11-23] MEDS: PARoxetine 20 MG TABLET PO (08:41)
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
== END 2022-11-23 13:09 | disposition home or self-care (01) ==
LOC: ED 19:09 → MEDSURG 19:24
PROVIDERS: Admitting Provider Family Medicine; Emergency Provider Student in an Organized Health Care Education/Training Program; PCP Internal Medicine; Visit Provider Family Medicine
DX: G35 Multiple sclerosis (principal); R32 Unspecified urinary incontinence; R94.5 Abnormal results of liver function studies; Z63.0 Problems in relationship with spouse or partner; M79.604 Pain in right leg; M79.605 Pain in left leg; F31.9 Bipolar disorder, unspecified; R53.1 Weakness; I10 Essential (primary) hypertension; E03.9 Hypothyroidism, unspecified; R26.2 Difficulty in walking, not elsewhere classified; T38.0X5A Adverse effect of glucocorticoids and synthetic analogues, initial encounter; Z86.39 Personal history of other endocrine, nutritional and metabolic disease; K21.9 Gastro-esophageal reflux disease without esophagitis; Z98.890 Other specified postprocedural states; Z90.89 Acquired absence of other organs; Z90.49 Acquired absence of other specified parts of digestive tract; Z90.10 Acquired absence of unspecified breast and nipple; Z98.891 History of uterine scar from previous surgery; Z98.1 Arthrodesis status
CPT/HCPCS: 36415; 80053; 80306; 83735; 85025; 96360; 96361; 97116; 97163; 97165; 97530; 97535; 99283; 99285; A9270; G0378; J7030; J7120

== ENCOUNTER 2024-02-07 13:18 | Outpatient (CLI) | payer MEDICARE, SELFPAY ==
--- OUTSIDE RECORDS SUMMARY | 2024-02-10 16:33 | XMS_ITS | Encounter Summary ---
Author Organization [place] Address [address] [place] [address] Care Team Providers Care Tray Casting Machine Operator Name Role Phone Soheila Greene ROD ELECTRONIC INDUCTION HARDENER Unavailable + [phone] Ruby Michel MD Unavailable [phone] Ruby Michel MD Unavailable [phone] Nguyễn Orta MD Primary Care Provider Reason for Visit * Reason Onset Date Comments Refill Request 01/11/2024 Encounter Details Date Type Department Care Team (Late st Contact Info) Description 01/11/2024 MyC Refill [facility] [address] [address] Ruby Michel MD [address] [place] [address], [address] [address] Refill Request Social History Tobacco Use Types Packs/Day Years Used Date Smoking Tobacco: Never Smokeless Tobacco: Never PHQ-2 Answer Date Recorded PHQ-2 Score 0 05/01/2022 Adolescent Education Answer Date Record ed Getting School Help Needed Not on file 12/16 Comments Unknown Sex and Gender Information Value Date Recorded Sex Assigned at Not on file Legal Sex Female 4:21 AM MIXER 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 Pending Prescriptions: Disp Refills pregabalin (LYRICA) 50 MG capsule 90 cap*5 Sig: Take 1 capsule (50 mg) by mouth 3 times daily. Last office visit provider: 06/01/23 Next appointment scheduled: 01/21/24 Medication T'd for review and signature Kamari RUSS ATC on 01/11/2024 at 1:54 PM documented in this encounter Plan of Treatment Not on file documented as of this encounter Visit Diagnoses Diagnosis Osteoarthritis of spine with radiculopathy, cervical region documented in this encounter Care Teams Tray Casting Machine Operator Relationship Specialty Start Date End Date Nguyễn Orta MD [facility] [address] [place] [address] PCP - General Internal Medicine 11/14/22 Soheila Greene APRN ELECTRONIC INDUCTION HARDENER [address] [facility] [id number] [place] [address] Nurse Practitioner Neurological Surgery 04/26/22 Ruby Michel MD 909 [place] [address] Neurology 07/10/22 Ruby Michel MD [address], [address] [address] Assigned Neuroscience Provider 08/19/22 documented as of this encounter
--- OUTSIDE RECORDS SUMMARY | 2024-02-10 16:33 | XMS_ITS | Encounter Summary ---
Author Organization [place] Address [address] [place] [address] Care Team Providers Care Audio Video Tech Name Role Phone Soheila Greene ROD CROSSING SUPERVISOR Unavailable + [phone] Ruby Michel MD Unavailable + [phone] Ruby Michel MD Unavailable + [phone] Nguyễn Orta MD Primary Care Provider Encounter Details Date Type Department Care Team (Late st Contact Info) Description 01/21/2024 9:15 AM CDT [facility] [place] [address] MS (multiple sclerosis) (H) Social History Tobacco Use Types Packs/Day Years Used Date Smoking Tobacco: Never Smokeless Tobacco: Never PHQ-2 Answer Date Recorded PHQ-2 Score 0 01/21/2024 Adolescent Education Answer Date Record ed Getting School Help Needed Not on file 12/16 Comments Unknown Sex and Gender Information Value Date Recorded Sex Assigned at Not on file Legal Sex Female 4:21 AM RADAR SCIENTIST Gender Identity Not on file Sexual Orientation Not on file documented as of this encounter Plan of Treatment Not on file documented as of this encounter Procedures Procedure Name Priority Date/Time Associated Diagnosis Comments BASIC METABOLIC PANEL Routine 01/21/2024 9:37 AM CDT MS (multiple sclerosis) (H) documented in this encounter Results * (ABNORMAL) Basic metabolic panel (01/21/2024 9:[address] [facility]) Sodium 141 135 - 145 mmol/L 01/21/2024 10:05 AM [facility] Potassium 3.8 3.4 - 5.3 mmol/L 01/21/2024 10:05 AM [facility] Chloride 103 98 - 107 mmol/L 01/21/2024 10:05 AM [facility] Carbon Dioxide (CO2) 23 22 - 29 mmol/L 01/21/2024 10:05 AM [facility] Anion Gap 15 7 - 15 mmol/L 01/21/2024 10:05 AM [facility] Urea Nitrogen 18.4 8.0 - 23.0 mg/dL 01/21/2024 10:05 AM [facility] Creatinine 0.97(H) 0.51 - 0.95 mg/dL 01/21/2024 10:05 AM [facility] GFR Estimate 67 >60 mL/min/1.7 3m2 01/21/2024 10:05 AM [facility] Comment:eGFR calculated usil 2020 CKD-EPI equation. Calcium 9.5 8.8 - 10.4 mg/dL 01/21/2024 10:05 AM [facility] Comment:Reference intervals for this test were updated on 10/09/2023 to reflect our healthy population more accurately. There may be differences in the flagging of prior results with similar values performed with this method. Those prior results can be interpreted in the context of the updated reference intervals. Glucose 152(H) 70 - 99 mg/dL 01/21/2024 10:05 AM [facility] Blood STRUCTURE OF RIGHT UPPER LIMB / Unknown Venipuncture / Unknown 01/21/2024 9:37 AM CDT 01/21/2024 9:37 AM T us Ruby Michel MD LAB - BLOOD ORDERABLES Final Result [facility] [address] [place] [address], [place] documented in this encounter Visit Diagnoses Diagnosis MS (multiple sclerosis) (H) Multiple sclerosis documented in this encounter Care Teams Audio Video Tech Relationship Specialty Start Date End Date Nguyễn Orta MD [facility] [address] [place] [address] PCP - General Internal Medicine 11/14/22 Soheila Greene APRN CROSSING SUPERVISOR [address] [place] [address] [id number] [place] [address] Nurse Practitioner Neurological Surgery 04/26/22 Ruby Michel MD [address]09 [place], [place] [address] Neurology 07/10/22 Ruby Michel MD [address], [address] [id number] Assigned Neuroscience Provider 08/19/22 documented as of this encounter
--- OUTSIDE RECORDS SUMMARY | 2024-02-10 16:33 | XMS_ITS | Encounter Summary ---
Author Organization [place] Address [address] [place] [address] Care Team Providers Care Project Admin Name Role Phone Soheila Greene ROD SOLAR PROJECT MANAGER Unavailable + [phone] Ruby Michel MD Unavailable [phone] Ruby Michel MD Unavailable [phone] Nguyễn Orta MD Primary Care Provider Reason for Visit * Reason Onset Date Comments Call Back 11/23/2022 Call back Encounter Details Date Type Department Care Team (Late st Contact Info) Description 11/23/2022 Telephone [facility] [place] [address] [place] [address] Ruby Michel MD [address] [place] [address], [address] [address] Call Back (Call back ) Social History Tobacco Use Types Packs/Day Years Used Date Smoking Tobacco: Never Smokeless Tobacco: Never PHQ-2 Answer Date Recorded PHQ-2 Score 0 05/01/2022 Comments Unknown Sex and Gender Information Value Date Recorded Sex Assigned at Not on file Legal Sex Female 4:21 AM WELL FLOW OPERATOR Gender Identity Not on file Sexual Orientation Not on file COVID-19 Exposure Response Date Recorded In the last 10 days, have yo u been in contact with someone who was confirmed or suspected to have Coronavirus/COVID-19? No / Unsure 11/04/2022 8:03 AM CDT documented as of this encounter Miscellaneous Notes * Telephone Encounter - Franklin Benitez RN - 11/23/2022 9:54 AM CDT LDM informing pt that Dr. Michel is aware of recent hospitalization. Was contacted earlier this week for opinion on if new imaging is needed and it was determined by her colleague that new imaging was not indicated at that time. Reminded pt that there are several factors that can contribute to worsening MS symptoms without it being new disease (heat, stress, etc). Encouraged call back if pt has any additional questions or concerns, encouraged her to speak out toteam at hospital in regards to concerns about care and that there is very little that Dr. Michel can do from outside of that health system. Franklin Benitez RN, BSN [facility] * Telephone Encounter - Nadine Canas - 11/23/2022 9:35 AM CDT M [facility] Call Center Phone Message May a detailed message be left on voicemail: yes Reason for Call: Other: Patient is requesting a call back to discuss current hospital admission at [facility]. Patient feels like she is being mistreated and not heard in regards to her MS.Patient would like to discuss with care team. Please reach out to patient to further advise # [phone] Action Taken: Other: [facility] Travel Screening: Not Applicable * Telephone Encounter - Shala Jose - 11/23/2022 8:29 AM CDT Health Call Center Phone Message May a detailed message be left on voicemail: yes Reason for Call: Other: Pt is requesting a call back to discuss something important. Pt wouldn't provide details. Please call pt back to advise at # [phone] Action Taken: Message routed to: Other: [facility] Travel Screening: Not Applicable documented in this encounter Plan of Treatment Not on file documented as of this encounter Visit Diagnoses Not on filedocumented in this encounter Care Teams Project Admin Relationship Specialty Start Date End Date Nguyễn Orta MD [facility] [address] [place] [address] PCP - General Internal Medicine 11/14/22 Soheila Greene APRN SOLAR PROJECT MANAGER 9 [facility] [id number] [place], [place] [address] Nurse Practitioner Neurological Surgery 04/26/22 Ruby Michel MD 9 [place], [place] [address] Neurology 07/10/22 Ruby Michel MD [facility], [address] [address] Assigned Neuroscience Provider 08/19/22 documented as of this encounter
--- OUTSIDE RECORDS SUMMARY | 2024-02-10 16:33 | XMS_ITS | Encounter Summary ---
Author Organization [place] Address [address] [place] [address] Care Team Providers Care Veterinary Assistant Technician Name Role Phone Soheila Greene ROD LEVELMAN Unavailable + [phone] Ruby Michel MD Unavailable [phone] Ruby Michel MD Unavailable [phone] Nguyễn Orta MD Primary Care Provider Reason for Visit * Reason Onset Date Comments Refill Request 02/07/2024 Encounter Details Date Type Department Care Team (Late st Contact Info) Description 02/07/[address] [facility] [address] [address] Ruby Michel MD [address] [place] [address], [address] [address] Refill Request Social History Tobacco Use Types Packs/Day Years Used Date Smoking Tobacco: Never Smokeless Tobacco: Never PHQ-2 Answer Date Recorded PHQ-2 Score 0 01/21/2024 Adolescent Education Answer Date Record ed Getting School Help Needed Not on file 12/16 Comments Unknown Sex and Gender Information Value Date Recorded Sex Assigned at Not on file Legal Sex Female 4:21 AM BUSINESS RELATIONS MANAGER Gender Identity Not on file Sexual Orientation Not on file documented as of this encounter Plan of Treatment Not on file documented as of this encounter Visit Diagnoses Diagnosis Trigeminal neuralgia documented in this encounter Care Teams Veterinary Assistant Technician Relationship Specialty Start Date End Date Nguyễn Orta MD [facility] [address] [place] [address] PCP - General Internal Medicine 11/14/22 Soheila Greene APRN LEVELMAN [address] [place] [address] [id number] [place], [place] [address] Nurse Practitioner Neurological Surgery 04/26/22 Ruby Michel MD [address] [place] [address] Neurology 07/10/22 Ruby Michel MD [facility], [address] [address] Assigned Neuroscience Provider 08/19/22 documented as of this encounter
--- OUTSIDE RECORDS SUMMARY | 2024-02-10 16:33 | XMS_ITS | Encounter Summary ---
Author Organization [place] Address [address] [place] [address] Care Team Providers Care Billing Manager Name Role Phone No Ref-Primary, Physician Primary Care Provider Soheila Greene APRN SEXUAL ASSAULT COUNSELOR Unavailable + [phone] Ruby Michel MD Unavailable + [phone] Ruby Michel MD Unavailable [phone] Nguyễn Orta MD Primary Care Provider Reason for Visit * Reason Onset Date Comments Call Back 09/11/2022 Results Encounter Details Date Type Department Care Team (Late st Contact Info) Description 09/11/2022 Telephone [facility] Clinic [address] [address] Ruby Michel MD [address] [place] [address], [address] [address] Call Back (Results ) Social History Tobacco Use Types Packs/Day Years Used Date Smoking Tobacco: Never Smokeless Tobacco: Never PHQ-2 Answer Date Recorded PHQ-2 Score 0 05/01/2022 Comments Unknown Sex and Gender Information Value Date Recorded Sex Assigned at Not on file Legal Sex Female 4:21 AM DATA COMMUNICATIONS ANALYST Gender Identity Not on file Sexual Orientation Not on file COVID-19 Exposure Response Date Recorded In the last 10 days, have yo u been in contact with someone who was confirmed or suspected to have Coronavirus/COVID-19? No / Unsure 09/04/2022 8:54 AM CDT documented as of this encounter Miscellaneous Notes * Telephone Encounter - Ruby Michel MD - 09/13/2022 9:47 AM CDT Correct, no need for ocrevus or starting a new ms medication at this time We had discussed starting tysabri. I will not order tysabri until b cell count closer to normal (>50) Ruby Michel MD on 09/13/2022 at 9:47 AM * Telephone Encounter - Franklin Benitez RN - 09/12/2022 9:51 AM CDT ----- Message from Ruby Michel MD sent at 09/05/2022 12:01 PM CDT ----- Please notify aptient that blood count is normal. B cell count is still low <1. Repeat in one month. No need for treatment at this time. Ruby Michel MD on 09/05/2022 at 12:01 PM Discussed above with pt, she verbalizes understanding. She had IVIG last week. Were you referring to no ocrevus needed at this time? Pt agreeable to repeat labs in 1 mo. Franklin Benitez RN, BSN [facility] Neurology * Telephone Encounter - Shala Jose - 09/11/2022 8:05 AM CDT [facility] Call Center Phone Message May a detailed message be left on voicemail: yes Reason for Call: Other: Pt is returning a call from Oumou David regarding some results. Please callpt back to advise at # [phone] Action Taken: Message routed to: Other: [facility] Travel Screening: Not Applicable documented in this encounter Plan of Treatment Not on file documented as of this encounter Visit Diagnoses Not on filedocumented in this encounter Care Teams Billing Manager Relationship Specialty Start Date End Date No Ref-Primary, Physician PCP - General 04/04/22 11/13/22 Nguyễn Orta MD [facility] [address] [place] [address] PCP - General Internal Medicine 11/14/22 Soheila Greene APRN CNP [address] [place] [id number] [place], [place] [address] Nurse Practitioner Neurological Surgery 04/26/22 Ruby Michel MD [address] [place] [address] Neurology 07/10/22 Ruby Michel MD [facility], [address] [id number] Assigned Neuroscience Provider 08/19/22 documented as of this encounter
--- OUTSIDE RECORDS SUMMARY | 2024-02-10 16:33 | XMS_ITS | Encounter Summary ---
Author Organization [place] Address [address] [place] [address] Care Team Providers Care Net Sql Developer Name Role Phone Soheila Greene ROD LOCAL DELIVERY TRUCK DRIVER Unavailable Ruby Michel MD Unavailable [phone] Ruby Michel MD Unavailable [phone] Nguyễn Orta MD Primary Care Provider Encounter Details Date Type Department Care Team (Late st Contact Info) Description 08/01/2023 MyC Medical Advice [facility] Neurology Clinic [address] [address] Ruby Michel MD [address] [place] [address], [address] [address] Social History Tobacco Use Types Packs/Day Years Used Date Smoking Tobacco: Never Smokeless Tobacco: Never PHQ-2 Answer Date Recorded PHQ-2 Score 0 05/01/2022 Adolescent Education Answer Date Record ed Getting School Help Needed Not on file 12/16 Comments Unknown Sex and Gender Information Value Date Recorded Sex Assigned at Not on file Legal Sex Female 4:21 AM CHRISTIAN MINISTRIES PROFESSOR Gender Identity Not on file Sexual Orientation Not on file documented as of this encounter Miscellaneous Notes * Telephone Encounter - Franklin Benitez RN - 08/01/2023 1:58 PM CDT Pt asked the following in the reason for mychart message. Please advise. Pregabalin 50mg needed to take three times a day because I had severe trigeminal neuralgia episodes. However side effects of medication have been too severe. How should I go back to gabapentin 100mg and carbamazepin ER 100mg Franklin Benitez RN, BSN [facility] Neurology documented in this encounter Plan of Treatment Not on file documented as of this encounter Visit Diagnoses Not on filedocumented in this encounter Care Teams Net Sql Developer Relationship Specialty Start Date End Date Nguyễn Orta MD [facility] [address] [place] [address] PCP - General Internal Medicine 11/14/22 Soheila Greene APRN LOCAL DELIVERY TRUCK DRIVER [address] [place] [address] [id number] [place] [address] Nurse Practitioner Neurological Surgery 04/26/22 Ruby Michel MD 9 [place] [address] Neurology 07/10/22 Ruby Michel MD [facility] [address], [address] [address] Assigned Neuroscience Provider 08/19/22 documented as of this encounter
--- OUTSIDE RECORDS SUMMARY | 2024-02-10 16:33 | XMS_ITS | Encounter Summary ---
Author Organization [place] Address [address] [place] [address]. [place] [address] Care Team Providers Care Cart Driver Name Role Phone Soheila Greene APRN PRACTICAL MINISTRIES PROFESSOR Unavailable + [phone] Ruby Michel MD Unavailable + [phone] Ruby Michel MD Unavailable + [phone] Nguyễn Orta MD Primary Care Provider Encounter Details Date Type Department Care Team (Latest Contact Info) Description 01/21/2024 Travel Social History Tobacco Use Types Packs/Day Years Used Date Smoking Tobacco: Never Smokeless Tobacco: Never PHQ-2 Answer Date Recorded PHQ-2 Score 0 01/21/2024 Adolescent Education Answer Date Record ed Getting School Help Needed Not on file 12/16 Comments Unknown Sex and Gender Information Value Date Recorded Sex Assigned at Not on file Legal Sex Female 4:21 AM MOTOR LODGE CLERK Gender Identity Not on file Sexual Orientation Not on file documented as of this encounter Plan of Treatment Not on file documented as of this encounter Visit Diagnoses Not on filedocumented in this encounter Care Teams Cart Driver Relationship Specialty Start Date End Date Nguyễn Orta MD [facility] [address] [place] [address] PCP - General Internal Medicine 11/14/22 Soheila Greene APRN PRACTICAL MINISTRIES PROFESSOR [address] [place], [place] [address] [address] Nurse Practitioner Neurological Surgery 04/26/22 Ruby Michel MD 909 [place] [address] Neurology 07/10/22 Ruby Michel MD [address], [address] [address] Assigned Neuroscience Provider 08/19/22 documented as of this encounter
--- OUTSIDE RECORDS SUMMARY | 2024-02-10 16:33 | XMS_ITS | Encounter Summary ---
Author Organization [place] Address [address] [place] [address] Care Team Providers Care Furnace Installer Name Role Phone No Ref-Primary, Physician Primary Care Provider Soheila Greene APRN ASSEMBLER HANDBAGS Unavailable + [phone] Soheila Greene APRN ASSEMBLER HANDBAGS Unavailable + [phone] Ruby Michel MD Unavailable + [phone] Ruby Michel MD Unavailable [phone] Soheila Greene APRN ASSEMBLER HANDBAGS Unavailable + [phone] Ruby Michel MD Unavailable +[phone] Nguyễn Orta MD Primary Care Provider Reason for Visit * Reason Onset Date Comments Call Back 09/12/2019 Ocrevus Inquiry Encounter Details Date Type Department Care Team (Late st Contact Info) Description 09/12/2019 Telephone [facility] Neurology [address] [facility] 3rd [place] [address] No Ref-Primary, Physician Call Back (Ocrevus Inquiry) Social History Tobacco Use Types Packs/Day Years Used Date Smoking Tobacco: Never Assessed Comments Unknown Sex and Gender Information Value Date Recorded Sex Assigned at Not on file Legal Sex Female 4:21 AM EYE SURGEON Gender Identity Not on file Sexual Orientation Not on file documented as of this encounter Miscellaneous Notes * Telephone Encounter - LuluOlive timmons - 09/12/2019 4:37 PM CDT [facility] Call Center Phone Message May a detailed message be left on voicemail: yes Reason for Call: Other: Renetta is a MS patient calling to inquire on if the [facility] accepts free ocrevus and does the ocrevus infusions or if the [facility] still finds grants for the patients like they have in the past to help with the finicial aspect of the infusions. Please give her a call back to advise. Thank you. Action Taken: Message routed to: [facility] Neurology Travel Screening: Not Applicable documented in this encounter Plan of Treatment Not on file documented as of this encounter Visit Diagnoses Not on filedocumented in this encounter Care Teams Furnace Installer Relationship Specialty Start Date End Date No Ref-Primary, Physician PCP - General 04/04/22 11/13/22 Nguyễn Orta MD [facility] [address] [place] [address] PCP - General Internal Medicine 11/14/22 Soheila Greene APRN ASSEMBLER HANDBAGS [address] [address] Nurse Practitioner Neurological Surgery 04/26/22 Soheila Greene APRN ASSEMBLER HANDBAGS [address] [id number] Assigned Neuroscience Provider 05/06/22 07/21/22 Ruby Michel MD [address] [place], [place] [address] Neurology 07/10/22 Ruby Michel MD [address], [address] [place] [address] Assigned Neuroscience Provider 07/22/22 07/28/22 Soheila Greene APRN ASSEMBLER HANDBAGS 9 [id number] [place] [address] Assigned Neuroscience Provider 07/29/22 08/18/22 Ruby Michel MD [address], [address] [place] [address] Assigned Neuroscience Provider 08/19/22 documented as of this encounter
--- OUTSIDE RECORDS SUMMARY | 2024-02-10 16:33 | XMS_ITS | Encounter Summary ---
Author Organization [place] Address [address] [place] [address] Care Team Providers Care Tufting Machine Operator Name Role Phone Soheila Greene ROD SHERIFF Unavailable + [phone] Ruby Michel MD Unavailable + [phone] Ruby Michel MD Unavailable + [phone] Nguyễn Orta MD Primary Care Provider Reason for Visit * Reason Onset Date Comments Other 11/21/2022 Dr. Darell Nowak at [facility] to Encounter Details Date Type Department Care Team (Late st Contact Info) Description 11/21/2022 Telephone [facility] [address] [address] Ruby Michel MD [address] [place] [address] , [address] [address] Other (Dr. Darell Nowak at [facility] to ) Social History Tobacco Use Types Packs/Day Years Used Date Smoking Tobacco: Never Smokeless Tobacco: Never PHQ-2 Answer Date Recorded PHQ-2 Score 0 05/01/2022 Comments Unknown Sex and Gender Information Value Date Recorded Sex Assigned at Not on file Legal Sex Female 4:21 AM SPORTS BOOKMAKER Gender Identity Not on file Sexual Orientation Not on file COVID-19 Exposure Response Date Recorded In the last 10 days, have yo u been in contact with someone who was confirmed or suspected to have Coronavirus/COVID-19? No / Unsure 11/04/2022 8:03 AM CDT documented as of this encounter Miscellaneous Notes * Telephone Encounter - Arianne Gonzalez RN - 11/21/2022 4:[address] Martin spoke with Dr Nowak. Imaging not indicated as these are not new symptoms, and recentMRIs of brain and spinal cord (11/06) were stable. Arianne Gonzalez RN * Telephone Encounter - Franklin Benietz RN - 11/21/2022 2:33 PM CDT RN returned call to Dr. Darell Nowak at [facility]. Pt presented today with paranoia, lower bodyweakness (worse on R), and R leg pain. He is wondering if MRI is indicated. RN informed that pt does have mental health history and records are available for review in care everywhere. He is requesting call back from an MS provider to discuss indication for imaging further. Dr. Michel out for remainder of day, routing message to [facility] MS team for assistance with call back to Dr. Nowak regarding imaging. Franklin Benitez RN, BSN [facility] Neurology * Telephone Encounter - Natacha Gagnon - 11/21/2022 2:16 PM CDT [facility] Phone Message May a detailed message be left on voicemail: yes Reason for Call: Dr. Darell Nowak at [facility] called to speak to regarding patients MS , please call ED back at [phone] Action Taken: Other: [facility] neurology Travel Screening: Not Applicable documented in this encounter Plan of Treatment Not on file documented as of this encounter Visit Diagnoses Not on filedocumented in this encounter Care Teams Tufting Machine Operator Relationship Specialty Start Date End Date Nguyễn Orta MD [facility] [address] [place] [address] PCP - General Internal Medicine 11/14/22 Soheila Greene APRN SHERIFF 9 [facility] [id number] [place], [place] [address] Nurse Practitioner Neurological Surgery 04/26/22 Ruby Michel MD 9 [place], [place] [address] Neurology 07/10/22 Ruby Michel MD [address], [address] [address] Assigned Neuroscience Provider 08/19/22 documented as of this encounter
--- OUTSIDE RECORDS SUMMARY | 2024-02-10 16:33 | XMS_ITS | Clinical Summary ---
Author Organization [place] Address [address] [place] [address] Care Team Providers Care Fisher Weir Name Role Phone Soheila Greene Diann ROD SPOON MAKER Unavailable + [phone] Ruby Michel MD Unavailable [phone] Ruby Michel MD Unavailable [phone] Nguyễn Orta MD Primary Care Provider Allergies Active Allergy Reactions Criticality Noted Date Comments Corticosteroids High 09/14/2014 PN: Becomes manic - last experience was hospitalized due to reaction Immune Globulin 08/14/2022 Depression and hypomania Iodinated Contrast Media Hives 04/24/2022 Penicillins Anaphylaxis High 04/24/2022 Swelling of the tongue, throat Fluoxetine Anaphylaxis High 04/24/2022 hives Bupropion Anaphylaxis High 11/03/2022 Medications ondansetron (ZOFRAN) 4 MG tabletIndication s:MS (multiple sclerosis) (H) Take 1-2 tablets (4-8 mg) by mouth every 6 hours as needed for nausea 30 tablet 1 05/10/19 23 Active albuterol (PROAIR HFA/PROVENTIL HFA/VENTOLIN HFA) 108 (90 Base) MCG/ACT inhaler Inhale 1-2 puffs into the lungs every 6 hours as needed for shortness of breath, wheezing or cough Active levothyroxine (SYNTHROID/LEVOT HROID) 75 MCG tablet Take 75 mcg by mouth daily Active PARoxetine (PAXIL) 40 MG tablet Take 40 mg by mouth At Bedtime Take with 20 mg tablet (total dose: 60 MG) Active PARoxetine (PAXIL) 20 MG tablet Take 20 mg by mouth At Bedtime Take with 40 mg tablet (total dose: 60 MG) Active amLODIPine (NORVASC) 10 MG tablet Take 10 mg by mouth daily Active QUEtiapine (SEROQUEL XR) 50 MG TB24 24 hr tablet Take 50 mg by mouth nightly as needed (sleep) Active Thiamine HCl (VITAMIN B-1 PO) Take 1 tablet by mouth daily Active FOLIC ACID PO Take 1 tablet by mouth daily Active diclofenac (VOLTAREN) 1 % topical gelIndications:M ultiple sclerosis exacerbation (H) Apply 4 g topically 4 times daily 350 g 11/16/19 23 Active carBAMazepine (CARBATROL) 100 MG 12 hr capsuleIndicatio ns:Trigeminal neuralgia Take 1 capsule (100 mg) by mouth 3 times daily. 90 capsule 11 01/21/20 24 Active gabapentin (NEURONTIN) 100 MG capsuleIndicatio ns:Trigeminal neuralgia Take 1 capsule (100 mg) by mouth 3 times daily. 90 capsule 11 01/21/20 24 Active dalfampridine (AMPYRA) 10 MG TB12 12 hr tabletIndication s:MS (multiple sclerosis) (H),Left hemiparesis (H),Gait instability Take 1 tablet (10 mg) by mouth 2 times daily. 60 tablet 11 01/21/20 24 Active carBAMazepine (CARBATROL) 100 MG 12 hr capsule Take 100 mg by mouth 3 times daily Discontinued (Reorder (No AVS)) gabapentin (NEURONTIN) 100 MG capsule Take 100 mg by mouth 3 times daily. Discontinued (Reorder (No AVS)) traMADol (ULTRAM) 50 MG tabletIndication s:Multiple sclerosis exacerbation (H) Take 1 tablet (50 mg) by mouth every 8 hours as needed for severe pain 10 tablet 11/16/19 23 Discontinued (Therapy completed (No AVS)) traMADol (ULTRAM) 50 MG tabletIndication s:Neuropathic pain Take 1-2 tablets every 8 hours as needed for severe pain 20 tablet 01/10/20 23 Discontinued (Therapy completed (No AVS)) pregabalin (LYRICA) 50 MG capsuleIndicatio ns:Osteoarthriti s of spine with radiculopathy, cervical region Take 1 capsule (50 mg) by mouth 3 times daily. 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 [address] [place] [address] MS (multiple sclerosis) (H) 01/21/2024 8:00 AM CDT Office Visit [facility] Neurology [address] [address] Ruby Michel MD MS (multiple sclerosis) (H) (Primary Dx); Trigeminal neuralgia; Left hemiparesis (H); Gait instability 01/21/2024 Travel 01/11/2024 MyC Refill [facility] Neurology [address] [address] Ruby Michel MD Refill Request 11/16/2023 MyC Medical Advice [facility] Neurology [address] [address] Ruby Michel MD from Last 3 Months Family History Medical History Relation Comments Ovarian Cancer Paternal Grandmother along with several paternal cousins Ovarian Cancer Sister Relation Status Comments Paternal Grandmother Sister Social History Tobacco Use Types Packs/Day Years Used Date Smoking Tobacco: Never Smokeless Tobacco: Never Tobacco Cessation:Counseling Given: Not Answered PHQ-2 Answer Date Recorded PHQ-2 Score 0 01/21/2024 Adolescent Education Answer Date Record ed Getting School Help Needed Not on file 12/16 Comments Unknown Sex and Gender Information Value Date Recorded Sex Assigned at Not on file Legal 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 Gender Identity Not on file Sexual Orientation Not on file Last Filed Vital Signs Vital Sign Reading Time Taken Comments Blood Pressure 134/91 01/21/2024 8:01 AM CDT Pulse 98 01/21/2024 8:01 AM CDT Temperature 36.9 ??C (98.5 ??F) 11/15/2022 8:21 AM CD T Respiratory Rate 18 11/15/2022 8:21 AM CDT Oxygen Saturation 96% 11/15/2022 8:21 AM CDT Inhaled Oxygen Concentration - - Weight 43.8 kg (96 lb 9.6 oz) 11/14/2022 8:35 AM CDT Height 170.2 cm (5' 7) 11/04/2022 8:25 AM CDT Body Mass Index 15.13 11/04/2022 8:25 AM CDT Plan of Treatment Health Maintenance Due Date Last Done Comments ADVANCE CARE PLANNING 1965 ANNUAL REVIEW OF HM ORDERS 1963 CT COLONOGRAPHY 1963 FLEX SIG 1963 sDNA (Cologuard) 1963 COLONOSCOPY 10/03/1973 HIV SCREENING 10/03/1978 HEPATITIS C SCREENING 10/03/1981 MEDICARE ANNUAL WELLNESS VISIT 10/03/1981 ZOSTER IMMUNIZATION (1 of 2) 10/03/1982 PAP 10/03/1984 LIPID 2003 Pneumococcal Vaccine: Pediatrics (0 to 5 Years) and At-Risk Patients (6 to 64 Years) (2 of 2 - PPSV23 or PCV20) 02/10/2015 12/16/2014 MAMMO SCREENING 03/10/2020 03/10/2019, 02/23, 09/12/2013 COLORECTAL CANCER SCREENING 05/26/2020 FIT 05/26/2020 05/27/2019 COVID-19 Vaccine (3 - Pfizer risk series) 11/18/2020 10/21/2020, 08/09/2020 RSV VACCINE (1 - Risk 60-74 years 1-dose series) 2023 TSH W/FREE T4 REFLEX 11/04/2023 11/03/2022, 08/12/19 08 INFLUENZA VACCINE (#1) 2023 , 02/12/2020, 01/01/2019, Additional history exists DTAP/TDAP/TD IMMUNIZATION (3 - Td or Tdap) 12/16/2024 12/16/2014, 08/21/2013, 03/25/2013, Additional history exists GLUCOSE 01/20/2027 01/21/2024, 10/24, 11/07/2022, Additional history exists PHQ-2 (once per calendar year) Completed 01/21/2024, 05/01/2022, 04/24/2022 HPV IMMUNIZATION Aged Out No longer e ligible based on patient's age to complete this topic MENINGITIS IMMUNIZATION Aged Out No l onger eligible based on patient's age to complete this topic RSV MONOCLONAL ANTIBODY Aged Out No l onger eligible based on patient's age to complete this topic Procedures Procedure Name Priority Date/Time Associated Diagnosis Comments BASIC METABOLIC PANEL Routine 01/21/2024 9:37 AM CDT MS (multiple sclerosis) (H) TSH WITH FREE T4 REFLEX Add-On 11/03/2022 3:34 AM CDT from Last 3 Months or Most Recently Relevant to Health Maintenance Results * (ABNORMAL) Basic metabolic panel (01/21/2024 9:37 AM CDT) Sodium 141 135 - 145 mmol/L 01/21/2024 10:05 AM CDT [facility] Potassium 3.8 3.4 - 5.3 mmol/L 01/21/2024 10:05 AM CDT [facility] Chloride 103 98 - 107 mmol/L 01/21/2024 10:05 AM [facility] Carbon Dioxide (CO2) 23 22 - 29 mmol/L 01/21/2024 10:05 AM [facility] Anion Gap 15 7 - 15 mmol/L 01/21/2024 10:05 AM [facility] Urea Nitrogen 18.4 8.0 - 23.0 mg/dL 01/21/2024 10:05 AM CDT [facility] Creatinine 0.97(H) 0.51 - 0.95 mg/dL 01/21/2024 10:05 AM CDT [facility] GFR Estimate 67 >60 mL/min/1.7 3m2 01/21/2024 10:05 AM CDT [facility] Comment:eGFR calculated usin 2020 CKD-EPI equation. Calcium 9.5 8.8 - 10.4 mg/dL 01/21/2024 10:05 AM CDT [facility] Comment:Reference intervals for this test were updated on 10/09/2023 to reflect our healthy population more accurately. There may be differences in the flagging of prior results with similar values performed with this method. Those prior results can be interpreted in the context of the updated reference intervals. Glucose 152(H) 70 - 99 mg/dL 01/21/2024 10:05 AM CDT [facility] Blood STRUCTURE OF RIGHT UPPER LIMB / Unknown Venipuncture / Unknown 01/21/2024 9:37 AM CDT 01/21/2024 9:37 AM CDT Ruby Michel MD LAB - BLOOD ORDERABLES Final Result [facility] [address] [facility] [place], [place] [address] * TSH with free T4 reflex (11/03/2022 3:34 AM CDT) TSH 3.78 0.30 - 4.20 uIU/mL 11/03/2022 9:13 AM CDT LABORATORY Blood BLOOD SPECIMEN / Unknown Venipuncture / Unknown 11/03/2022 3:34 AM CDT 11/03/2022 3:44 AM CDT Ju Ortiz PA-C LAB - BLOOD ORDERABLES Patricia l Result [facility] [address] [facility], [address] [place] [address], [facility] [phone] from Last 3 Months or Most Recently Relevant to Health Maintenance Insurance [employer] MEDICARE ADVANTAGE [employer] MEDICARE ADVANTAGE Advance Directives For more information, please contact: [phone] * Full Code (Latest Code Status on File) Date Activated Date Inactivated Comments 11/03/2022 8:19 AM 11/15/2022 1:41 PM All basic an d advanced life-sustaining interventions are performed as appropriate Question Answer Comments Code status determined by: Discussion with paule nt/ legal decision maker Care Teams Fisher Weir Relationship Specialty Start Date End Date Nguyễn Orta MD [facility] [address] [place] [address] PCP - General Internal Medicine 11/14/22 Soheila Greene APRN SPOON MAKER [address] [facility] [id number] [place] [address] Nurse Practitioner Neurological Surgery 04/26/22 Ruby Michel MD [address] [place], [place] [id number] Neurology 07/10/22 Ruby Michel MD [address], [address] [address] Assigned Neuroscience Provider 08/19/22
--- OUTSIDE RECORDS SUMMARY | 2024-02-10 16:33 | XMS_ITS | Encounter Summary ---
Author Organization [place] Address [address] [place] [address] Care Team Providers Care Fisheries Enforcement Officer Name Role Phone Soheila Greene ROD CODING TECH Unavailable + [phone] Ruby Michel MD Unavailable [phone] Ruby Michel MD Unavailable [phone] Nguyễn Orta MD Primary Care Provider Encounter Details Date Type Department Care Team (Late st Contact Info) Description 08/30/2023 MyC Medical Advice [facility] Neurology Clinic [address] [address] Ruby Michel MD [address] [place] [address], [address] [address] Social History Tobacco Use Types Packs/Day Years Used Date Smoking Tobacco: Never Smokeless Tobacco: Never PHQ-2 Answer Date Recorded PHQ-2 Score 0 05/01/2022 Adolescent Education Answer Date Record ed Getting School Help Needed Not on file 12/16 Comments Unknown Sex and Gender Information Value Date Recorded Sex Assigned at Not on file 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 Gender Identity Not on file Sexual Orientation Not on file documented as of this encounter Plan of Treatment Not on file documented as of this encounter Visit Diagnoses Not on filedocumented in this encounter Care Teams Fisheries Enforcement Officer Relationship Specialty Start Date End Date Nguyễn Orta MD [facility] [address] [place] [address] PCP - General Internal Medicine 11/14/22 Soheila Greene APRN CODING TECH [address] [facility] [id number] [place], [place] [address] Nurse Practitioner Neurological Surgery 04/26/22 Ruby Michel MD [address] [place], [place] [address] Neurology 07/10/22 Ruby Michel MD [address], [address] [id number] Assigned Neuroscience Provider 08/19/22 documented as of this encounter
--- OUTSIDE RECORDS SUMMARY | 2024-02-10 16:33 | XMS_ITS | Encounter Summary ---
Author Organization [place] Address [address] [place] [address] Care Team Providers Care Director Of Sports Medicine Name Role Phone Soheila Greene ROD IVORY CARVER Unavailable + [phone] Ruby Michel MD Unavailable [phone] Ruby Michel MD Unavailable [phone] Nguyễn Orta MD Primary Care Provider Encounter Details Date Type Department Care Team (Late st Contact Info) Description 11/16/2023 MyC Medical Advice [facility] Neurology Clinic [address] [address] Ruby Michel MD [address] [place] [address], [address] [address] Social History Tobacco Use Types Packs/Day Years Used Date Smoking Tobacco: Never Smokeless Tobacco: Never PHQ-2 Answer Date Recorded PHQ-2 Score 0 05/01/2022 Adolescent Education Answer Date Record ed Getting School Help Needed Not on file 12/16 Comments Unknown Sex and Gender Information Value Date Recorded Sex Assigned at Not on file 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 Gender Identity Not on file Sexual Orientation Not on file documented as of this encounter Plan of Treatment Not on file documented as of this encounter Visit Diagnoses Not on filedocumented in this encounter Care Teams Director Of Sports Medicine Relationship Specialty Start Date End Date Nguyễn Orta MD [facility] [address] [place] [address] PCP - General Internal Medicine 11/14/22 Soheila Greene APRN IVORY CARVER [address] [facility] [id number] [place], [place] [address] Nurse Practitioner Neurological Surgery 04/26/22 Ruby Michel MD [address] [place], [place] [address] Neurology 07/10/22 Ruby Michel MD [address], [address] [id number] Assigned Neuroscience Provider 08/19/22 documented as of this encounter
--- OUTSIDE RECORDS SUMMARY | 2024-02-10 16:33 | XMS_ITS | Encounter Summary ---
Author Organization [place] Address [address] [place] [address] Care Team Providers Care Interventional Radiology Tech Name Role Phone Soheila Greene ROD TECHNICAL PUBLICATIONS WRITER Unavailable Ruby Michel MD Unavailable [phone] Ruby Michel MD Unavailable [phone] Nguyễn Orta MD Primary Care Provider Encounter Details Date Type Department Care Team (Late st Contact Info) Description 08/27/2023 MyC Medical Advice [facility] Neurology Clinic [address] [address] Ruby Michel MD [address] [place] [address], [address] [address] Social History Tobacco Use Types Packs/Day Years Used Date Smoking Tobacco: Never Smokeless Tobacco: Never PHQ-2 Answer Date Recorded PHQ-2 Score 0 05/01/2022 Adolescent Education Answer Date Record ed Getting School Help Needed Not on file 12/16 Comments Unknown Sex and Gender Information Value Date Recorded Sex Assigned at Not on file 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 Looks like psychiatry prescribes tegretol XR 100mg TID Pt previously discontinued gabapentin as symptoms were controlled and medication caused dizziness but has restarted (likely from home supply). Sent message asking for dosing clarification and goal of communication. Franklin Benitez RN, BSN [facility] Neurology documented in this encounter Plan of Treatment Not on file documented as of this encounter Visit Diagnoses Not on filedocumented in this encounter Care Teams Interventional Radiology Tech Relationship Specialty Start Date End Date Nguyễn Orta MD [facility] [address] [place] [address] PCP - General Internal Medicine 11/14/22 Soheila Greene APRN TECHNICAL PUBLICATIONS WRITER [address] [place] [address] [id number] [place] [address] Nurse Practitioner Neurological Surgery 04/26/22 Ruby Michel MD [address] [place] [address] Neurology 07/10/22 Ruby Michel MD [facility] [address], [address] [address] Assigned Neuroscience Provider 08/19/22 documented as of this encounter
--- OUTSIDE RECORDS SUMMARY | 2024-02-10 16:33 | XMS_ITS | Referral Summary ---
Author Organization [place] Address [address] [place] [address] Care Team Providers Care Diagnostics Sales Developer Name Role Phone Soheila Greene ROD SQUAD SERGEANT Unavailable + [phone] Ruby Michel MD Unavailable [phone] Ruby Michel MD Unavailable [phone] Nguyễn Orta MD Primary Care Provider Encounters Date Type Department Care Team Description 02/07/2024 Juve [facility]man [facility] Neurology [address] [phone] Ruby Michel MD Refill Request 01/21/2024 9:[address] [facility] [address] [place] [address] MS (multiple sclerosis) (H) 01/21/2024 Travel 01/21/2024 8:00 AM CDT Office Visit [facility] Neurology [address] [phone] Ruby Michel MD MS (multiple sclerosis) (H) (Primary Dx); Trigeminal neuralgia; Left hemiparesis (H); Gait instability 01/11/2024 Juve Hallman [facility] Clinic [address] [phone] Ruby Michel MD Refill Request 11/16/2023 MyC Medical Advice [facility] Neurology Clinic [address] [phone] Ruby Michel MD from Last 3 Months Allergies Active Allergy Reactions Criticality Noted Date [...] 2 times daily. 60 tablet 11 01/21/20 Active carBAMazepine (CARBATROL) 100 MG 12 hr [...] for severe pain 10 tablet 11/16/19 23 024 Discontinued (Therapy completed (No AVS)) traMADol (ULTRAM) 50 MG tabletIndication s:Neuropathic pain Take 1-2 tablets every 8 hours as needed for severe pain 20 tablet 01/10/20 23 024 Discontinued (Therapy completed (No AVS)) pregabalin (LYRICA) 50 MG capsuleIndicatio ns:Osteoarthriti s of spine with radiculopathy, cervical region Take 1 capsule (50 mg) by mouth 3 times daily. 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 05/25/2023 Trigeminal neuralgia 11/03/2022 Bilateral leg weakness 11/03/2022 Multiple sclerosis exacerbation 11/03/2022 Hypogammaglobulinemia 04/24/2022 Social History Tobacco Use Types Packs/Day Years Used Date Smoking Tobacco: Never Smokeless Tobacco: Never Tobacco Cessation:Counseling Given: Not Answered PHQ-2 Answer Date Recorded PHQ-2 Score 0 01/21/2024 Adolescent Education Answer Date Record ed Getting School Help Needed Not on file 12/16 Comments Unknown Sex and Gender Information Value Date Recorded Sex Assigned at Not on file 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 Gender Identity Not on file Sexual Orientation [...] 11/04/2022 8:25 AM CDT Plan of Treatment Not on file Procedures Procedure Name Priority Date/Time Associated Diagnosis Comments BASIC METABOLIC PANEL Routine 01/21/2024 9:37 AM CDT MS (multiple sclerosis) (H) TSH WITH FREE T4 REFLEX Add-On 11/03/2022 3:34 AM CDT from Last 3 Months or Most Recently Relevant to Health Maintenance Results * (ABNORMAL) Basic metabolic panel (01/21/2024 9:37 AM CDT) Sodium 141 135 - 145 mmol/L 01/21/2024 10:05 AM CDT [facility] Potassium 3.8 3.4 - 5.3 mmol/L 01/21/2024 10:05 AM CDT [facility] Chloride 103 98 - 107 mmol/L 01/21/2024 10:05 AM CDT [facility] Carbon Dioxide (CO2) 23 22 - 29 mmol/L 01/21/2024 10:05 AM CDT [facility] Anion Gap 15 7 - 15 mmol/L 01/21/2024 10:05 AM CDT [facility] Urea Nitrogen 18.4 8.0 - 23.0 mg/dL 01/21/2024 10:05 AM CDT [facility] Creatinine 0.97(H) 0.51 - 0.95 mg/dL 01/21/2024 10:05 AM CDT [facility] GFR Estimate 67 >60 mL/min/1.7 3m2 01/21/2024 10:05 AM CDT [facility] Comment:eGFR calculated usin 2020 CKD-EPI equation. Calcium 9.5 8.8 - 10.4 mg/dL 01/21/2024 10:05 AM CDT [facility] Comment:Reference intervals for this test were updated on 10/09/2023 to reflect our healthy population more accurately. There may be differences in the flagging of prior results with similar values performed with this method. Those prior results can be interpreted in the context of the updated reference intervals. Glucose 152(H) 70 - 99 mg/dL 01/21/2024 10:05 AM CDT [facility] Blood STRUCTURE OF RIGHT UPPER LIMB / Unknown Venipuncture / Unknown 01/21/2024 9:37 AM CDT 01/21/2024 9:37 AM CDT Ruby Michel MD LAB - BLOOD ORDERABLES Final Result [facility] [address] [facility] [place], [place] [address] * TSH with free T4 reflex (11/03/2022 3:34 AM CDT) TSH 3.78 0.30 - 4.20 uIU/mL 11/03/2022 9:13 AM CDT [facility] Blood BLOOD SPECIMEN / Unknown Venipuncture / Unknown 11/03/2022 3:34 AM CDT 11/03/2022 3:44 AM CDT Ju Ortiz PA-C LAB - BLOOD ORDERABLES Patricia l Result [facility] [place] [facility] [address] [facility], [address] [place] [address], [facility] [phone] from Last 3 Months or Most Recently Relevant to Health Maintenance Insurance [employer] MED[employer]ARE ADVANTAGE [employer] ADVANTAGE Advance Directives For more information, please contact: [phone] * Full Code (Latest Code Status on File) Date Activated Date Inactivated Comments 11/03/2022 8:19 AM 11/15/2022 1:41 PM All basic an d advanced life-sustaining interventions are performed as appropriate Question Answer Comments Code status determined by: Discussion with patie nt/ legal decision maker Care Teams Diagnostics Sales Developer Relationship Specialty Start Date End Date Nguyễn Orta MD [facility] [address] [place] [address] PCP - General Internal Medicine 11/14/22 Soheila Greene APRN SQUAD SERGEANT [address] [facility] [id number] [address] Nurse Practitioner Neurological Surgery 04/26/22 Ruby Michel MD [address] [place], [place] [phone] Neurology 07/10/22 Ruby Michel MD [address], [address] [id number] Assigned Neuroscience Provider 08/19/22
--- OUTSIDE RECORDS SUMMARY | 2024-02-10 16:33 | XMS_ITS | Encounter Summary ---
Author Organization [facility] Address [address] [place] [address] Care Team Providers Care Assistant Warehouse Manager Name Role Phone Soheila Greene Diann ROD COMPUTER SYSTEM TECHNICIAN Unavailable + [phone] Ruby Michel MD Unavailable [phone] Ruby Michel MD Unavailable + [phone] Nguyễn Orta MD Primary Care Provider Reason for Referral * Rehab Therapy Physical Therapy (Routine: Next available opening) - Pending Review Specialty Diagnoses / Procedures Referred By Phoenix dela cruz Referred To Contact Diagnoses MS (multiple sclerosis) (H) Left hemiparesis (H) Gait instability Ruby Michel MD [address], [address] [address] Phone: tel: fax: Referral ID Status Reason Start Date Expiration Date V isits Requested Visits Authorized [id number] Pending Review 01/21/2024 01/20/2025 1 1 Question Answer Course of Action: Evaluation and Treatment Specialty Services: Per Associated Diagnosis Patient Scheduling Instructions: [facility] will call you to coordinate your care as prescribed by your provider. If you don't hear from a paper sales representative within 2 business days, please call . Comments Please be aware that coverage of these services is subject to the terms and limitations of your health insurance plan. Call member services at your health plan with any benefit or coverage questions. [facility] will call you to coordinate your care as prescribed by your provider. If you don't hear from a paper sales representative within 2 business days, please call . * Diagnostic Imaging MRI (Routine) - Authorized Specialty Diagnoses / Procedures Referred By Contac t Referred To Contact Radiology. Diagnoses MS (multiple sclerosis) (H) Procedures MR Thoracic Spine w/o Contrast Ruby Michel MD [address], [place] [address] [place] [address] Phone: tel: fax: Referral ID Status Reason Start Date Expiration Date V isits Requested Visits Authorized [id number] Authorized 01/21/2024 01/20/2025 1 1 * Diagnostic Imaging MRI (Routine) - Authorized Specialty Diagnoses / Procedures Referred By Contac t Referred To Contact Radiology. Diagnoses MS (multiple sclerosis) (H) Procedures MR Cervical Spine w/o Contrast Ruby Michel MD [address], [address] [address] Phone: tel: fax: Referral ID Status Reason Start Date Expiration Date V isits Requested Visits Authorized [id number] Authorized 01/21/2024 01/20/2025 1 1 * Diagnostic Imaging MRI (Routine) - Authorized Specialty Diagnoses / Procedures Referred By Contac t Referred To Contact Radiology. Diagnoses MS (multiple sclerosis) (H) Procedures MR Brain w/o Contrast Ruby Michel MD [address], [address] [address] Phone: tel: fax: Referral ID Status Reason Start Date Expiration Date V isits Requested Visits Authorized [id number] Authorized 01/21/2024 01/20/2025 1 1 Reason for Visit * Reason Comments Follow Up Encounter Details Date Type Department Care Team (Late st Contact Info) Description 01/21/2024 8:00 AM CDT Office Visit [facility] Neurology Clinic [facility] [address] [place] [phone] Ruby Michel MD [facility] , [address] [address] MS (multiple sclerosis) (H) (Primary Dx); Trigeminal neuralgia; Left hemiparesis (H); Gait instability Social History Tobacco Use Types Packs/Day Years Used Date Smoking Tobacco: Never Smokeless Tobacco: Never PHQ-2 Answer Date Recorded PHQ-2 Score 0 01/21/2024 Adolescent Education Answer Date Record ed Getting School Help Needed Not on file 12/16 Comments Unknown Sex and Gender Information Value Date Recorded Sex Assigned at Not on file Legal 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 Gender Identity Not on file Sexual Orientation Not on file documented as of this encounter Last Filed Vital Signs Vital Sign Reading Time Taken Comments Blood Pressure 134/91 01/21/2024 8:01 AM CDT Pulse 98 01/21/2024 8:01 AM CDT Temperature - - Respiratory Rate - - Oxygen Saturation - - Inhaled Oxygen Concentration - - Weight - - Height - - Body Mass Index - - documented in this encounter Patient Instructions * Patient Instructions* Ruby Michel MD - 01/21/2024 8:00 AM CDT You were seen today for MS Your strength is stable I have recommended a trial of Ampyra You have to create a profile on their website to get the medication, but they did not use insurance her blood work today Work with physical therapy MRI in 6 months Follow up after mri documented in this encounter Progress Notes * Ruby Michel MD - 01/21/2024 8:00 AM CDT Date of Service: 01/21/2024 [facility] Neurology [facility] Evaluation Subjective: 58-year-old woman with a history of breast cancer now in remission, psoriasis, who presents in follow-up for multiple sclerosis. No discrete new symptoms reported today Since her last visit with me her significant other has been diagnosed with Lewy body dementia. He experiences fluctuating memory and difficulty sleeping. However, the behavior changes associated withthis disease have actually make it easier for her to live with him. She states that her gait is limited to approximately 1/4 mile at which point she becomes very fatigued. She does have frequent falls. These typically occur because she trips on her feet. She can tripon the right over the left foot. Recall that trigeminal neuralgia has been a chronic struggle for her. [facility] She currently takes gabapentin and carbamazepine 3 times per day. She feels that this is the most effective regimen for her and she feels that she is currently tolerating this. I had previously prescribed pregabalin, but she felt that this caused her gait to be more unstable. She does note that she is not sleeping well because of her partner's behaviors. This is making someof her MS symptoms were noticeable. This includes urinary frequency. Prior DMDs: Copaxone Avonex Rebif Tysabri Tecfidera Aubagio Rituximab caused an irritation of her psoriasis, on it x 1.5 years Ocrevus 09/2016 - present, last dose 11/06/2019, prior was 02/2019 kesimpta 06/2021-03/17/2022, syncope Allergies Allergen Reactions Corticosteroids PN: Becomes manic - last experience was hospitalized due to reaction Penicillins Anaphylaxis Swelling of the tongue, throat Prozac [Fluoxetine] Anaphylaxis hives Wellbutrin [Bupropion] Anaphylaxis Immune Globulin Depression and hypomania Iodinated Contrast Media [Iodinated Contrast Media] Hives Current Outpatient Medications Medication Sig Dispense Refill albuterol (PROAIR HFA/PROVENTIL HFA/VENTOLIN HFA) 108 (90 Base) MCG/ACT inhaler Inhale 1-2 puffs into the lungs every 6 hours as needed for shortness of breath, wheezing or cough carBAMazepine (CARBATROL) 100 MG 12 hr capsule Take 100 mg by mouth 3 times daily diclofenac (VOLTAREN) 1 % topical gel Apply 4 g topically 4 times daily 350 g 0 FOLIC ACID PO Take 1 tablet by mouth daily gabapentin (NEURONTIN) 100 MG capsule Take 100 mg by mouth 3 times daily. levothyroxine (SYNTHROID/LEVOTHROID) 75 MCG tablet Take 75 mcg by mouth daily ondansetron (ZOFRAN) 4 MG tablet Take 1-2 tablets (4-8 mg) by mouth every 6 hours as needed for nausea 30 tablet 1 PARoxetine (PAXIL) 20 MG tablet Take 20 mg by mouth At Bedtime Take with 40 mg tablet (total dose: 60 MG) PARoxetine (PAXIL) 40 MG tablet Take 40 mg by mouth At Bedtime Take with 20 mg tablet (total dose: 60 MG) QUEtiapine (SEROQUEL XR) 50 MG TB24 24 hr tablet Take 50 mg by mouth nightly as needed (sleep) Thiamine HCl (VITAMIN B-1 PO) Take 1 tablet by mouth daily amLODIPine (NORVASC) 10 MG tablet Take 10 mg by mouth daily (Patient not taking: Reported on 01/21/2024) pregabalin (LYRICA) 50 MG capsule Take 1 capsule (50 mg) by mouth 3 times daily. (Patient not taking: Reported on 01/21/2024) 90 capsule 0 traMADol (ULTRAM) 50 MG tablet Take 1-2 tablets every 8 hours as needed for severe pain (Patient not taking: Reported on 01/21/2024) 20 tablet 0 traMADol (ULTRAM) 50 MG tablet Take 1 tablet (50 mg) by mouth every 8 hours as needed for severe pain (Patient not taking: Reported on 06/21/2023) 10 tablet 0 No current facility-administered medications for this visit. Past medical, surgical, social and family history was personally reviewed. Pertinent details noted above. Physical Examination: BP (!) 134/91 (BP Location: Right arm, Patient Position: Sitting) Pulse 98 General: no acute distress Cranial nerves: VFFC EOM full w/no PRAVIN No dysarthria Motor: Tone is increased Bulk is normal R L Deltoid 5 5 Biceps 5 5 Triceps 5 5 Wrist ext 5 5 Finger ext 5 5 Finger abd 5- 4+ Hip flexion 4 4- Knee flexion 5- 5- Knee ext 5 5 Ankle d/f 5 5- Reflexes are brisk in the LE (R 4+) Sensory: intact in ankles today Romberg present Coordination: mild sensory ataxia RUE > LUE Gait: wide based sensory ataxic gait, able to stand on right foot x 10 sec, L x 3-5 25 foot walk: 8 sec Tests/Imaging: DUSTIN virus Ab negative 02/12 Vitamin D 80 IgG 01/2021 - 893 08/2021 - 237 03/2022 - 174 11/2022-386 Cd19 104 Abs lymph 1400 MRI brain 2017 - personally reviewed, overall mild lesion burden in the brain, no significant infratentorial lesions, gd-, per rad report stable lesion pattern compared to 2016 but growth of some lesions 12/2017 - no new or enhancing lesions 06/2018 - no new lesions, gd- 12/2018 - no new or enhancing lesions 11/29/2020 - no new lesions, gd- 02/2022 - no new lesions 10/2022-no new lesions MRI cervical spine 2016 - personally reviewed, high lesion burden mostly in dorsal cord, gd-, stable compared to 2016 12/2017 - no new or enhancing lesions 12/2018 - mild spondylosis, no new or enhancing lesions 11/2021 - no new lesions 10/2022 - no new lesions MRI thoracic spine 2016 - personally reviewed, high lesion burden in the dorsal cord, gd-, stable compared to 12/2017 - no new or enhancing lesions 11/2021 - no new lesions 10/2022 - no new lesions Assessment: 58-year-old woman with chronic multiple sclerosis who is likely in the secondary progressive phase of the disease. Her examination today appears quite stable. She does have gait instability. Her 25 foot walk is 8 seconds. I think it is appropriate for her toconsider a trial of Ampyra. Common risks and side effects were discussed in detail. I think that this medication is worthwhile for her to try. However if no benefit within 1 month of use, she can discontinue the medication because only 1 out of 3 people to try this medication get benefit. She will continue with carbamazepine and gabapentin for management of trigeminal nerve pain. I have recommended updated MRI in 6 months Plan: - Continue carbamazepine and gabapentin - MRI in 6 months - Ampyra trial - BMP - Follow-up in 6 months Note was completed with the assistance of [employer] Fluency software which can often result in accidental word substitutions. The longitudinal plan of care for the diagnosis(es)/condition(s) as documented were addressed during this visit. Due to the added complexity in care, I will continue to support Yifan Jackson in the subsequent management and with ongoing continuity of care. A total of 30 minutes on the date of service were spent in the care of this patient. Ruby Michel MD on 01/21/2024 at 8:08 AM documented in this encounter Nursing Notes * Oumou David MA - 01/21/2024 8:00 AM CDT Chief Complaint Patient presents with Follow Up AFRICA Stahl on 01/21/2024 at 8:01 AM documented in this encounter Plan of Treatment Scheduled Orders Name Type Priority Associated Diagnoses Orde r Schedule MR Brain w/o Contrast Imaging Routine MS (multiple sclerosis) (H) Expected: 07/21/2024 (Approximate), Expires: 01/20/2025 MR Cervical Spine w/o Contrast Imaging Routine MS (multiple sclerosis) (H) Expected: 07/21/2024 (Approximate), Expires: 01/20/2025 MR Thoracic Spine w/o Contrast Imaging Routine MS (multiple sclerosis) (H) Expected: 07/21/2024 (Approximate), Expires: 01/20/2025 Scheduled Referrals Name Type Priority Associated Diagnoses Orde r Schedule Physical Therapy Supervisor Extrusion Referral Referral Routine: Next available opening MS (multiple sclerosis) (H) Left hemiparesis (H) Gait instability Expected: 01/21/2024 (Approximate), Expires: 01/20/2025 documented as of this encounter Results * (ABNORMAL) Basic metabolic panel (01/21/2024 9:37 AM CDT) Pathologist [facility] Sodium 141 135 - 145 mmol/L 01/21/2024 10:05 AM CDT [facility] Potassium 3.8 3.4 - 5.3 mmol/L 01/21/2024 10:05 AM CDT [facility] Chloride 103 98 - 107 mmol/L 01/21/2024 10:05 AM CDT [facility] Carbon Dioxide (CO2) 23 22 - 29 mmol/L 01/21/2024 10:05 AM [facility] Anion Gap 15 7 - 15 mmol/L 01/21/2024 10:05 AM [facility] Urea Nitrogen 18.4 8.0 - 23.0 mg/dL 01/21/2024 10:05 AM [facility] Creatinine 0.97(H) 0.51 - 0.95 mg/dL 01/21/2024 10:05 AM [facility] GFR Estimate 67 >60 mL/min/1.7 3m2 01/21/2024 10:05 AM [facility] Comment:eGFR calculated usin 2020 CKD-EPI equation. Calcium 9.5 8.8 - 10.4 mg/dL 01/21/2024 10:05 AM [facility] Comment:Reference intervals for this test were updated on 10/09/2023 to reflect our healthy population more accurately. There may be differences in the flagging of prior results with similar values performed with this method. Those prior results can be interpreted in the context of the updated reference intervals. Glucose 152(H) 70 - 99 mg/dL 01/21/2024 10:05 AM [facility] Blood STRUCTURE OF RIGHT UPPER LIMB / Unknown Venipuncture / Unknown 01/21/2024 9:37 AM CDT 01/21/2024 9:37 AM T us Ruby Michel MD LAB - BLOOD ORDERABLES Final Result [facility] [address] [place] [address] documented in this encounter Visit Diagnoses Diagnosis MS (multiple sclerosis) (H)- Primary Multiple sclerosis Trigeminal neuralgia Left hemiparesis (H) Hemiplegia, unspecified, affecting unspecified side Gait instability Abnormality of gait documented in this encounter Care Teams Assistant Warehouse Manager Relationship Specialty Start Date End Date Nguyễn Orta MD [facility] [address] [place] [address] PCP - General Internal Medicine 11/14/22 Soheila Greene APRN COMPUTER SYSTEM TECHNICIAN [address] [facility] [id number] [place] [address] Nurse Practitioner Neurological Surgery 04/26/22 Ruby Michel MD [address] [place], [place] [id number] Neurology 07/10/22 Ruby Michel MD [address], [address] [address] Assigned Neuroscience Provider 08/19/22 documented as of this encounter
--- OUTSIDE RECORDS SUMMARY | 2024-02-10 16:33 | XMS_ITS | Encounter Summary ---
Author Organization [place] Address [address] [place] [address] Care Team Providers Care Wireless Store Manager Name Role Phone Soheila Greene ROD ETHNOLOGY TEACHER Unavailable [phone] Ruby Michel MD Unavailable Ruby Michel MD Unavailable Nguyễn Orta MD Primary Care Provider Reason for Visit * Reason Onset Date Comments Call Back 12/05/2022 Encounter Details Date Type Department Care Team (Late st Contact Info) Description 12/05/2022 Telephone [facility] [address] [address] Ruby Michel MD [address], [address] [address] Call Back Social History Tobacco Use Types Packs/Day Years Used Date Smoking Tobacco: Never Smokeless Tobacco: Never PHQ-2 Answer Date Recorded PHQ-2 Score 0 05/01/2022 Comments Unknown Sex and Gender Information Value Date Recorded Sex Assigned at Not on file 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 Patient has called today to provide FYI/update about a recent hospital encounter at [facility], stating that she had filed grievances with that health care system through her primary MD - Dr. Orta. Cellulose Insulation Helper did inform patient that information could be taken as an FYI, though with this being a different system that would be the limitation in any action towards her experience. Patient stated understanding and plans to gather documentation of this grievance filed with [facility]'s Patient Advocacy Team, and will plan to bring this documentation to discuss at upcoming appointment with Dr. Michel on 12/18. Routing to provider as FYI only. José Woodard RN, BSN [facility] Neurology * Telephone Encounter - Natacha Mishra - 12/05/2022 8:17 AM CDT [facility] Call [facility] Phone Message May a detailed message be left on voicemail: yes Reason for Call: Patient is returning clinics call. Regarding last hospital stay in [place], [place].Patient would like to speak with [place] Action Taken: Message routed to: [facility] Neurology Travel Screening: Not Applicable documented in this encounter Plan of Treatment Not on file documented as of this encounter Visit Diagnoses Not on filedocumented in this encounter Care Teams Wireless Store Manager Relationship Specialty Start Date End Date Nguyễn Orta MD [facility] [address] [place] [address] PCP - General Internal Medicine 11/14/22 Soheila Greene APRN CNP [address] [place] [address] [id number] [place], [place] [address] Nurse Practitioner Neurological Surgery 04/26/22 Ruby Michel MD [address] [place] [address] Neurology 07/10/22 Ruby Michel MD [address], [address] [address] Assigned Neuroscience Provider 08/19/22 documented as of this encounter
--- OUTSIDE RECORDS SUMMARY | 2024-02-10 16:33 | XMS_ITS | Clinical Summary ---
[facility] Address [address] [place] [address] Care Team Providers Care Raw Shellfish Preparer Name Role Phone Nguyen Rosado MD Primary Care Provide r Source Comments You are receiving this document as you are listed as the primary care provider,follow-up provider, or the patient has been referred to you for consultation.This is in compliance with the Medicare andMedicaid EHR Incentive Program,which states Providers who transition their patient to another setting of careor provider of care or refers their patient to another provider of care shouldprovide summary care record for each transition of care or referral. Formerly [facility] Allergies Active Allergy Reactions Criticality Noted Date Comments Bupropion Anaphylaxis High 11/07/2011 Corticosteroids High 09/14/2014 PN: Becomes manic - last experience was hospitalized due to reaction Diatrizoate Hives High 06/23/2013 Fluoxetine Anaphylaxis High 11/07/2011 Iodinated Contrast Media Hives High 01/04/2012 PN: Pt had MRI and reacted to dye with hives around her mouth 11/11/21 spoke with pt, she does ok with 50 mg IV Benadryl prior to MRI. ??Cannot have steriods. ??Dr Stanton ok'd Benadryl . Marisol Prasad RN ??11/11/2021, 10:31 AM Lamotrigine Other, see comments 09/28/2014 PN: hand appeared blackish purple Methylprednisolone Anaphylaxis High 06/20/2016 Metrizamide Hives High 01/04/2012 PN: Pt had MRI and reacted to dye with hives around her mouth Medications Medication Sig Dispensed Refills Start Date End Date Status aspirin-acetaminoph en-caffeine (EXCEDRIN,MIGRAINE) 250-250-65 MG tablet Take 2 Tablets by mouth daily as needed for Pain (Headache). Active QUEtiapine (SEROQUEL) 100 MG tablet Take 1 Tablet (100 mg) by mouth at bedtime as needed. Active Cholecalciferol (VITAMIN D3) 2000 units TABS TAKE 2 TABLETS BY MOUTH DAILY 180 Tablet 01/03/2019 Active Additional Information Patient not taking.Informant: Pharmacy/Pharmacist, Reported on 04/04/2022 PARoxetine (PAXIL) 40 MG tablet Take 1 Tablet (40 mg) by mouth daily. 02/10/2020 Active ondansetron (ZOFRAN-ODT) 8 MG disintegrating tablet Take 1 Tablet by mouth every 8 hours as needed for Nausea. 15 Tablet 11/30/2020 Active meclizine (ANTIVERT) 12.5 MG tablet Take 1 Tablet by mouth three times a day as needed for Dizziness/Vertigo. 30 Tablet 12/20/2020 Active Additional Information Patient not taking.Reported on 04/04/2022 carBAMazepine (TEGRETOL XR) 100 MG 12 hour release tablet TAKE 1 TABLET BY MOUTH THREE TIMES DAILY 270 Tablet 1 01/24/2021 Active glatiramer acetate (COPAXONE) 40 MG/ML SOSY injection Inject 40 mg subcutaneously three times a week. 12 mL 11 04/20/2021 Active Additional Information Patient not taking.Reported on 04/04/2022 Ofatumumab 20 MG/0.4ML SOAJIndications:MS (multiple sclerosis) ([facility]) Inject 20 mg subcutaneously once per week for weeks 0, 1, 2 then skip week 3 and proceed with montly injection on week 4. 0.4 mL 2 05/24/2021 Active Additional Information Patient not taking.Reported on 04/04/2022 Ofatumumab 20 MG/0.4ML SOAJIndications:MS (multiple sclerosis) ([facility]) Starting week 4, Inject 20 mg subcutaneously every month. 0.4 mL 5 05/24/2021 Active Additional Information Patient not taking.Reported on 04/04/2022 prochlorperazine (COMPAZINE) 10 MG tabletIndications:N ausea Take 1 Tablet (10 mg) by mouth every 6 hours as needed for Nausea or Vomiting for up to 12 doses. 12 Tablet 3 09/15/2021 Active Additional Information Patient not taking.Reported on 04/04/2022 gabapentin (NEURONTIN) 100 MG capsule Take 1 Capsule (100 mg) by mouth three times a day. 270 Capsule 3 02/01/2022 Active amLODIPine (NORVASC) 10 MG tablet TAKE 1 TABLET BY MOUTH DAILY 90 Tablet 10/11/2022 Active levothyroxine (SYNTHROID) 75 MCG tabletIndications:H ypothyroidism, unspecified type (HRC),Medication refill TAKE 1 TABLET BY MOUTH DAILY 90 Tablet 10/11/2022 Active Active Problems Problem Noted Date Diagnosed Date Episodic recurrent vertigo 01/06/2021 Dyslipidemia 01/06/2021 Thyroid nodule 11/30/2020 Hypogammaglobulinemia 08/06/2020 Generalized muscle weakness 06/25/2020 Acquired hypogammaglobulinemia 04/22/2020 Essential hypertension 12/30/2018 Overview (01/06/2021): Amlodipine 10mg (incr from 5mg 01/13) Generalized weakness 07/17/2018 Quadriparesis 12/05/2017 Unspecified mood (affective) disorder 12/13/2016 Overview (01/06/2021): On seroquel and paxil, follows with psychiatry. 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 Multiple sclerosis 11/07/2011 Overview (10/28/2015): Diagnosed 1999, reactions to many medications for this. Psoriasis 11/07/2011 Overview (11/15/2016): Biopsy done 11/06/2011, results pending. ; Other psoriasis History of breast cancer 11/07/2011 Overview (10/28/2015): Left, had left partial mastectomy, also had chemo and radiation, age 25. (1992) States neg BRCA 1 and 2 done years ago. Family history of ovarian cancer 11/07/2011 Overview (10/28/2015): Sister at 53 and paternal grandmother as well as several paternal cousins. Premature menopause 11/07/2011 Overview (10/28/2015): Age 36. Resolved Problems Problem Noted Date Diagnosed Date Resolved Date Orthostatic hypotension 11/30/202012/24 Acute chest pain 06/12/2018 12/30/2018 Elevated troponin 06/12/2018 12/30/2018 Pleural effusion 01/20/2012 01/06/2021 Overview (10/28/2015): Small, bilateral, noted on outside MRI at [facility]. Referred to pulmonary. Bipolar affective disorder 11/07/2011 0 08/21/2013 Overview (11/15/2016): Other bipolar disorders ([facility]) Immunizations Name Administration Dates Next Due Influenza U2X9-92 01/30/2009 Influenza IIV4 (Quadrivalent ) 0.5mL (45958) 01/06/2021,02/12/2020,01/01/2019,2014,12/11/2013,03/03/2013 Influenza, Unspecified Formulation 06/12/2018 PCV13 (Prevnar) 12/16/2014 Pfizer Monovalent 12+ Purple Top 10/21/2020,07/24 TDAP (BOOSTRIX) 08/21/2013 Td 03/25/2013 Tdap 12/16/2014 Family History Medical History Relation Name Comments Cancer Father prostate Coronary Artery Disease Father [place] a t 32 y/o, recovered afterwards Mental Disorder Father bipolar diso rder Other Father Celiac Disease Mother Son has glute n intolerance, not diagnosed with celiac disease. Diabetes Mother Heart Disease Mother High Cholesterol Mother Hypertension Mother THYROID DISEASE Mother Thyroid Disorder Mother Cancer Other On father's stuart e, from [facility], many types of cancer including brain, ovarian, cousins. Cancer, Ovary Paternal Grandmother Bipolar Disorder Sister 2 Committed s uicide 10/2013. Cancer, Breast Negative Family History Cancer, Cervical Negative Family History Cancer, Colon Negative Family History Cancer, Endometrial Negative Family History Relation Name Status Comments Father Mother Maternal Grandfather Maternal Grandmother Other Paternal Grandfather Paternal Grandmother Sister 1 Alive Sister 2 Social History Tobacco Use Types Packs/Day Years Used Date Smoking Tobacco: Never Smokeless Tobacco: Never Alcohol Use Standard Drinks/Week Comments Yes 1 (1 standard drink = 0.6 oz pur e alcohol) 1 daily Sex and Gender Information Value Date Recorded Sex Assigned at Not on file Gender Identity Not on file Sexual Orientation Not on file Last Filed Vital Signs Vital Sign Reading Time Taken Comments Blood Pressure 161/110 04/04/2022 2:58 PM POWER CHISEL OPERATOR Provider informed of elevated BP Pulse 83 04/04/2022 2:58 PM POWER CHISEL OPERATOR Temperature 36.8 ??C (98.2 ??F) 03/17/2022 1 1:59 AM POWER CHISEL OPERATOR Respiratory Rate 17 03/17/2022 2:30 PM POWER CHISEL OPERATOR Oxygen Saturation 95% 03/17/2022 5:1 5 PM POWER CHISEL OPERATOR Inhaled Oxygen Concentration - - Weight 46.3 kg (102 lb) 04/04/2022 2:53 PM POWER CHISEL OPERATOR Height 158 cm (5' 2.21) 01/06/2021 11: 09 AM CDT Body Mass Index 18.53 01/06/2021 11:09 AM CDT Plan of Treatment Health Maintenance Due Date Last Done Comments HIV Screening (Preventive Services) 1979 Zoster/Shingles (1 of 2) 10/03/2013 Cervical Cancer Screening 12/08/2019 12/07/2016, 08/2011 Mammogram 03/10/2020 03/10/2019, 02/23 (Completed), 09/12/2013 FIT Colon Cancer Screening 05/26/2020 05/27/2019 Medicare Annual Wellness Visit 03/26/2023 COVID-19 Vaccine ( season) 2023 10/21/2020, 08/09/2020 Influenza (#1) 2023 01/06/2021, 01/24, 01/01/2019, Additional history exists DTaP/Tdap/Td (3 - Tdap) 12/16/2024 12/17/19 15, 08/21/2013, 03/25/2013 Cholesterol 01/06/2026 01/06/2021, 02/23, 12/27/2011 RSV (1 - 1-dose 75+ series) 10/03/2038 Pneumococcal Aged Out 12/16/2014 No longer eligi ble based on patient's age to complete this topic Hep C Screening (Preventive Services) Completed 03/10/2019 (Completed) HepA Aged Out No longer eligi ble based on patient's age to complete this topic HepB Aged Out No longer eligi ble based on patient's age to complete this topic Hib Aged Out No longer eligi ble based on patient's age to complete this topic IPV (Polio) Aged Out No longer eligi ble based on patient's age to complete this topic Infant RSV Aged Out No longer eligi ble based on patient's age to complete this topic MCV4 Aged Out No longer eligi ble based on patient's age to complete this topic Procedures Procedure Name Priority Date/Time Associated Diagnosis Comments LIPID PANEL & DIRECT LDL (IF NEEDED) Routine 01/06/2021 12:29 PM CDT Dyslipidemia ANATOMICAL PATH LIQUID BASED Routine 12/07/2016 4:30 PM CDT MM MAMMOGRAM SCREENING BILAT W CAD Routine 09/12/2013 7:49 AM CDT Other screening mammogram History of breast cancer Breast cancer screening from Last 3 Months or Most Recently Relevant to Health Maintenance Results * (ABNORMAL) Lipid Panel and Direct LDL(If Needed) (01/06/2021 12:29 PM CDT) Cholesterol 275(H) 0 - 199 mg/dL 01/06/2021 6:15 PM CDT [facility] Triglyceride 58 <=149 mg/dL 01/06/2021 6:15 PM CDT [facility] HDL Cholesterol 94 >=40 mg/dL 01/06/2021 6:15 PM CDT [facility] LDL, Calculated 169(H) <130 mg/dL 01/06/2021 6:15 PM CDT [facility] Non HDL Chol, Calculated 181(H) <=159 mg/dL 01/06/2021 6:15 PM CDT [facility] Cholesterol/HDL Ratio 2.9 01/06/2021 6:15 PM CDT [facility] Hours Fasting 12 01/06/2021 6:15 PM CDT [facility] Blood Venipuncture / Unknown 01/06/2021 12:29 PM CDT 01/06/2021 12:29 PM CDT Nguyen Rosado MD LAB_1 Performing Organization Address City/State/[facility] Co de Phone Number [facility] [address] [id number] [phone] [facility] [address] [place] [phone], [facility] [phone] * Pap Smear (12/07/2016 4:30 PM CDT) 12/07/2016 4:30 PM CDT Narrative PN SOFT - 12/13/2016 11:48 AM CDT FINAL GYNECOLOGICAL CYTOLOGY REPORT Pathology #: [id number] ?Date Obtained: 12/07/2016 ? Date Received: 12/08/2016 INTERPRETATION/RESULTS: Negative for Intraepithelial Lesion or Malignancy. SPECIMEN ADEQUACY: Satisfactory for Evaluation. ??Endocervical cells/transformation zone component present. Verified on 12/13/2016 ??by XAVIER CHAIDEZ(ASCP) (electronic signature) CLINICAL NOTES: ?Abnormal bleeding: No, LMP: 06/2016, Menstrual status: None Apply, ?Current form of therapy: None apply LIQUID BASED PAP SMEAR SPECIMEN TYPE: ?ROUTINE CERVICAL PAP TEST PLEASE NOTE: The pap smear is a screening test designed to aid in the detection of cervical cancer and its precursor lesions. It is not a diagnostic procedure and should not be used as the sole means of detecting cervical cancer. Both false-positive and false-negative reports may occur. Performed at [facility], [address] [place] [address] Marilyn Mishra MD LAB_1 MIKEL TILLMAN [address] [place], [place] [id number] * MM Mammogram Screening Bilat W CAD (09/12/2013 7:49 AM CDT) Anatomical Region Laterality Modality Breast Bilateral Mammography Impressions 09/16/2013 11:34 AM CDT : BIRADS 2 Benign Finding(s) (overall) Follow Up Mammogram in 1 year - Bilateral The results and recommendations of this examination will be communicated to the patient by the [facility] and we will attempt to schedule any recommended imaging follow up with the patient. BJThe accuracy of mammography for detection of malignancy is reduced in breasts of this type. Narrative 09/16/2013 11:34 AM CDT Compared to: 09/12/2006 Foreign Image(s) Mammogram, 05/17/2004 Foreign Image(s) Mammogram, 12/19/2002 Foreign Image(s) Mammogram FINDINGS: Bilateral screening mammogram was performed. The breasts are extremely dense (>75% fibroglandular). There are breast conservation changes on the left. There are changes of breast reduction. No significant mass, calcifications or other abnormalities are seen in either breast. Procedure Note Colin Guzmán MD - 11/24/2015 Compared to: 09/12/2006 Foreign Image(s) Mammogram, 05/17/2004 Foreign Image(s) Mammogram, 12/19/2002 Foreign Image(s) Mammogram FINDINGS: Bilateral screening mammogram was performed. The breasts are extremely dense (>75% fibroglandular). There are breast conservation changes on the left. There are changes of breast reduction. No significant mass, calcifications or other abnormalities are seen in either breast. IMPRESSION : BIRADS 2 Benign Finding(s) (overall) Follow Up Mammogram in 1 year - Bilateral The results and recommendations of this examination will be communicated to the patient by the [facility] and we will attempt to schedule any recommended imaging follow up with the patient. BJThe accuracy of mammography for detection of malignancy is reduced in breasts of this type. Esperanza Richardson MD RAD AMALIA from Last 3 Months or Most Recently Relevant to Health Maintenance Advance Directives * Full Code (Latest Code Status on File) Date Activated Date Inactivated Comments 11/29/2020 11:56 AM 11/30/2020 4:17 PM * Full Code Date Activated Date Inactivated Comments 06/23/2020 8:20 PM 06/25/2020 5:51 PM * Full Code Date Activated Date Inactivated Comments 12/30/2018 4:56 PM 01/01/2019 2:35 PM * Full Code Date Activated Date Inactivated Comments 07/16/2018 12:21 PM 07/18/2018 4:19 PM * Full Code Date Activated Date Inactivated Comments 06/18/2018 1:07 AM 06/19/2018 6:53 PM Care Teams Raw Shellfish Preparer Relationship Specialty Start Date End Date Nguyen Rosado MD [address] [place] [id number] PCP - General Internal Medicine 03/17/20
--- OUTSIDE RECORDS SUMMARY | 2024-02-10 16:33 | XMS_ITS | Encounter Summary ---
Author Organization [facility] Address [address], [place] [address] Care Team Providers Care Manufacturing Analyst Name Role Phone Nguyen Rosado MD Primary Care Provide r Encounter Details Date Type Department Care Team ([facility] st Contact Info) Description 04/03/2019 Correspondence External to External, [place] [address] [facility] Social History Tobacco Use Types Packs/Day Years Used Date Smoking Tobacco: Never Smokeless Tobacco: Never Alcohol Use Standard Drinks/Week Comments Yes 0 (1 standard drink = 0.6 oz pur e alcohol) rare Sex and Gender Information Value Date Recorded Sex Assigned at Not on file Gender Identity Not on file Sexual Orientation Not on file documented as of this encounter Plan of Treatment Not on file documented as of this encounter Visit Diagnoses Not on filedocumented in this encounter Additional Health Concerns Infection Onset Date Last Indicated Resolved Time R/O COVID19 06/23/2020 06/23/2020 06/23/2020 8:05 PM CDT R/O COVID19 11/29/2020 11/29/2020 11/29/2020 8:09 AM CDT documented as of this encounter Care Teams Manufacturing Analyst Relationship Specialty Start Date End Date Nguyen Rosado MD [address] [place] [id number] PCP - General Internal Medicine 03/17/20 documented as of this encounter
--- OUTSIDE RECORDS SUMMARY | 2024-02-10 16:33 | XMS_ITS | Encounter Summary ---
Author Organization [place] Address [address] [place] [address] Care Team Providers Care Client Resolution Specialist Name Role Phone Soheila Greene ROD GOLD PLATER Unavailable + [phone] Ruby Michel MD Unavailable [phone] Ruby Michel MD Unavailable [phone] Nguyễn Orta MD Primary Care Provider Encounter Details Date Type Department Care Team (Late st Contact Info) Description 05/22/2023 MyC Medical Advice [facility] [address] [address] Ruby Michel MD [address] [place] [address], [address] [address] Social History Tobacco Use Types Packs/Day Years Used Date Smoking Tobacco: Never Smokeless Tobacco: Never PHQ-2 Answer Date Recorded PHQ-2 Score 0 05/01/2022 Adolescent Education Answer Date Record ed Getting School Help Needed Not on file 12/16 Comments Unknown Sex and Gender Information Value Date Recorded Sex Assigned at Not on file Legal Sex Female 4:21 AM BRAKE OPERATOR HELPER Gender Identity Not on file Sexual Orientation Not on file documented as of this encounter Plan of Treatment Not on file documented as of this encounter Visit Diagnoses Not on filedocumented in this encounter Care Teams Client Resolution Specialist Relationship Specialty Start Date End Date Nguyễn Orta MD [facility] [address] [place] [address] PCP - General Internal Medicine 11/14/22 Soheila Greene APRN GOLD PLATER [address] [facility] [id number] [place], [place] [id number] Nurse Practitioner Neurological Surgery 04/26/22 Ruby Michel MD [address] [place], [place] [address] Neurology 07/10/22 Ruby Michel MD [address], [address] [id number] Assigned Neuroscience Provider 08/19/22 documented as of this encounter
--- OUTSIDE RECORDS SUMMARY | 2024-02-10 16:33 | XMS_ITS | Encounter Summary ---
Author Organization [facility] Address [address], [place] [address] Care Team Providers Care Salon Professional Name Role Phone Nguyen Rosado MD Primary Care Provide r Encounter Details Date Type Department Care Team ([facility] st Contact Info) Description 12/30/2018 Correspondence Radiology Hopsital/Clinic Radiology, Provider MRI SAFETY AND HEALTH QUESTIONNAIRE Social History Tobacco Use Types Packs/Day Years [...] documented as of this encounter Care Teams Salon Professional Relationship Specialty Start Date End Date Nguyen Rosado MD [address] [place] [id number] PCP - General Internal Medicine 03/17/20 documented as of this encounter
--- OUTSIDE RECORDS SUMMARY | 2024-02-10 16:33 | XMS_ITS | Encounter Summary ---
Author Organization [facility] Address [address] [place] [address]. [place] [address] Care Team Providers Care Bow Maker Custom Name Role Phone No Ref-Primary, Physician Primary Care Provider Soheila Greene APRN SOFTWARE ENGINEERING SPECIALIST Unavailable Ruby Michel MD Unavailable [phone] Ruby Michel MD Unavailable [phone] Nguyễn Orta MD Primary Care Provider Encounter Details Date Type Department Care Team (Late st Contact Info) Description 11/07/2022 Ophth Exam [facility] Services - Eye Care Service Line [facility] [place] [address] Joseph Pelletier MD [address] [place] [address] Social History Tobacco Use Types Packs/Day Years Used Date Smoking Tobacco: Never Smokeless Tobacco: Never PHQ-2 Answer Date Recorded PHQ-2 Score 0 05/01/2022 Comments Unknown Sex and Gender Information Value Date Recorded Sex Assigned at Not on file Legal Sex Female 4:21 AM GRAIN DISTRIBUTOR Gender Identity Not on file Sexual Orientation Not on file COVID-19 Exposure Response Date Recorded In the last 10 days, have yo u been in contact with someone who was confirmed or suspected to have Coronavirus/COVID-19? No / Unsure 11/04/2022 8:03 AM CDT documented as of this encounter Plan of Treatment Not on file documented as of this encounter Visit Diagnoses Not on filedocumented in this encounter Care Teams Bow Maker Custom Relationship Specialty Start Date End Date No Ref-Primary, Physician PCP - General 04/04/22 11/13/22 Nguyễn Orta MD [facility] [address] [place] [address] PCP - General Internal Medicine 11/14/22 Soheila Greene APRN SOFTWARE ENGINEERING SPECIALIST [address] [place] [address] [id number] [place] [address] Nurse Practitioner Neurological Surgery 04/26/22 Ruby Michel MD [address] [place] [phone] Neurology 07/10/22 Ruby Michel MD [address], [address] [phone] Assigned Neuroscience Provider 08/19/22 documented as of this encounter
--- OUTSIDE RECORDS SUMMARY | 2024-02-10 16:34 | XMS_ITS | Encounter Summary ---
Author Organization [facility] Address [address] [place] [address] Care Team Providers Care Brushing Machine Operator Name Role Phone Nguyen Rosado MD Primary Care Provide r Encounter Details Date Type Department Care Team (Late st Contact Info) Description 05/29/2018 Correspondence Neurology at [facility] [address] [facility] [place] [address] Ruby Michel MD [address] [place], [place] [phone] [facility] Social History Tobacco Use Types Packs/Day Years [...] documented as of this encounter Care Teams Brushing Machine Operator Relationship Specialty Start Date End Date Nguyen Rosado MD [address] [place] [address] PCP - General Internal Medicine 03/17/20 documented as of this encounter
--- OUTSIDE RECORDS SUMMARY | 2024-02-10 16:34 | XMS_ITS | Encounter Summary ---
Author Organization [facility] Address [address] [address] Care Team Providers Care Family Physician Name Role Phone Nguyen Rosado MD Primary Care Provide r Encounter Details Date Type Department Care Team ([facility] st Contact Info) Description 01/17/2018 Correspondence [facility] Radiology [address] [place] [phone] Radiology, Provider MRI SAFETY SHEET AND COMPATIBILITY FORM Social History Tobacco Use Types Packs/Day Years [...] documented as of this encounter Care Teams Family Physician Relationship Specialty Start Date End Date Nguyen Rosado MD NPI: [id number] [place] [address] PCP - General Internal Medicine 03/17/20 documented as of this encounter
--- OUTSIDE RECORDS SUMMARY | 2024-02-10 16:34 | XMS_ITS | Encounter Summary ---
Author Organization [facility] Address [address], [place] [address] Care Team Providers Care Catcher Helper Name Role Phone Nguyen Rosado MD Primary Care Provide r Encounter Details Date Type Department Care Team (Late st Contact Info) Description 07/06/2016 Correspondence [facility] Radiology [address] [place] [phone] Radiology, Provider MRI SAFETY SHEET AND COMPATIBILITY FORM Social History Tobacco Use Types Packs/Day Years Used Date Smoking Tobacco: Never Smokeless Tobacco: Never Alcohol Use Standard Drinks/Week Comments Yes 0 (1 standard drink = 0.6 oz pure alcohol) 2 glasses of wine on the weekends Sex and Gender Information Value Date Recorded [...] documented as of this encounter Care Teams Catcher Helper Relationship Specialty Start Date End Date Nguyen Rosado MD [address] [place] [address] PCP - General Internal Medicine 03/17/20 documented as of this encounter
--- OUTSIDE RECORDS SUMMARY | 2024-02-10 16:34 | XMS_ITS | Encounter Summary ---
Author Organization [email or web address] Address [address], [place] [address] Care Team Providers Care Veterinary Inspector Name Role Phone Nguyen Rosado MD Primary Care Provide r Encounter Details Date Type Department Care Team ([facility] st Contact Info) Description 07/16/2018 Correspondence [facility] Radiology [address] [place] [phone] Radiology, Provider MRI SAFETY SHEET AND COMPATIBILITY [...] documented as of this encounter Care Teams Veterinary Inspector Relationship Specialty Start Date End Date Nguyen Rosado MD NPI: [id number] [place] [address] PCP - General Internal Medicine 03/17/20 documented as of this encounter
--- OUTSIDE RECORDS SUMMARY | 2024-02-10 16:34 | XMS_ITS | Clinical Summary ---
Author Organization [facility] Address [place], [place] [address] Care Team Providers Care Automation Mechanic Name Role Phone None Unavailable Unavailable Renny Nikia Hallman ROLLER STITCHER Unavailable [phone] Anna Nguyen Martins ROLLER STITCHER Unavailable [phone] Jose David Ibanez Michael DO Unavailable [phone] Nguyễn Orta MD Primary Care Provider Allergies Active Allergy Reactions Criticality Noted Date Comments Bupropion Anaphylaxis High 10/15/2007 Diatrizoate Allergen Hives 06/23/2013 Corticosteroids (Glucocorticoids) Dizziness 09/14/2014 PN: Becomes manic - last experience was hospitalized due to reaction Lamotrigine Other - Describe In Comment Field 09/28/2014 PN: hand appeared blackish purple Latex 10/15/2007 Metrizamide Hives Medium 01/04/2012 PN: Pt had MRI and reacted to dye with hives around her mouth Oxcarbazepine Anaphylaxis High 07/25/2023 Breathing problems. Penicillins Anaphylaxis High 04/24/2022 Swelling of the tongue, throat Fluoxetine Anaphylaxis High 11/07/2011 Methylprednisolone Anaphylaxis High 06/20/2016 Medications Medication Sig Dispensed Refills Start Date End Date Status traMADol (ULTRAM) 50 mg tabletIndication s:Trigeminal neuralgia of right side of face Take 1 tablet by mouth every 6 hours. 30 tablet 12/21/2017 Active Cholecalciferol, Vitamin D3, 2,000 unit tablet Take 4,000 Units by mouth once daily. 12/13/2017 Active levothyroxine (SYNTHROID) 75 mcg tabletIndication s:Hypothyroidism (acquired) TAKE 1 TABLET BY MOUTH DAILY 60 tablet 12/03/2019 Active medication order composer Pt states she has been started on Baclofen by her neurologist 0 02/12/2020 Active meclizine (ANTIVERT) 12.5 mg tablet Take 12.5 mg by mouth. 12/20/2020 Active amLODIPine (NORVASC) 10 mg tablet Take 10 mg by mouth once daily. On hold 05/27/2021 Active hydroCHLOROthiaz vincenzo 12.5 mg tablet TAKE 1 TABLET BY MOUTH EVERY MORNING FOR HIGH BLOOD PRESSURE 04/11/2022 Active ondansetron (ZOFRAN) 4 mg tablet Take 4-8 mg by mouth. 05/10/2022 Active albuterol HFA (PRO-AIR; VENTOLIN; PROVENTIL) 90 mcg/actuation inhaler Inhale 1-2 Puffs by mouth. Active fluticasone propionate (FLOVENT) 110 mcg/Actuation inhaler Inhale 1 Puff by mouth two times daily. 05/10/2023 Active pregabalin (LYRICA) 50 mg capsule Take 50 mg by mouth three times daily. 06/26/2023 Active carBAMazepine (TEGRETOL XR) 100 mg Extended-Release tabletIndication s:Anxiety,Mood disorder (HC) Take 100 mg three times daily as needed 90 Tablet 2 12/11/2023 Active gabapentin (NEURONTIN) 100 mg capsule Take 100 mg by mouth. 01/21/2024 Active PARoxetine (PAXIL) 20 mg tabletIndication s:PTSD (post-traumatic stress disorder),Anxiet y 60 mg at bedtime (40 mg + 20 mg) 30 Tablet 2 02/07/2024 Active PARoxetine (PAXIL) 40 mg tabletIndication s:Anxiety 60 mg at bedtime (40 mg + 20 mg) 30 Tablet 2 02/07/2024 Active QUEtiapine (SEROQUEL) 25 mg tabletIndication s:PTSD (post-traumatic stress disorder),Mood disorder (HC) 25 mg to 125 mg at bedtime 150 Tablet 2 02/07/2024 Active LORazepam (ATIVAN) 0.5 mg tabIndications:A nxiety Take 1 Tablet (0.5 mg) by mouth once daily if needed for Anxiety. 10 Tablet 1 02/07/2024 Active LORazepam (ATIVAN) 0.5 mg tabIndications:A nxiety Take 1 Tablet (0.5 mg) by mouth once daily if needed for Anxiety. 10 Tablet 1 10/01/2023 4 Discontinue d(Reorder (E-cancel not sent)) PARoxetine (PAXIL) 20 mg tabletIndication s:PTSD (post-traumatic stress disorder),Anxiet y 60 mg at bedtime (40 mg + 20 mg) 30 Tablet 2 12/11/2023 4 Discontinue d(Reorder (E-cancel not sent)) PARoxetine (PAXIL) 40 mg tabletIndication s:Anxiety 60 mg at bedtime (40 mg + 20 mg) 30 Tablet 2 12/11/2023 4 Discontinue d(Reorder (E-cancel not sent)) QUEtiapine (SEROQUEL) 25 mg tabletIndication s:PTSD (post-traumatic stress disorder),Mood disorder (HC) 25 mg to 125 mg at bedtime 150 Tablet 2 12/11/2023 4 Discontinue d(Reorder (E-cancel not sent)) Active Problems Problem Noted Date Diagnosed Date PTSD (post-traumatic stress disorder) 11/14/2022 Other hyperlipidemia 03/11/2019 Overview (03/11/2019): AHA 10 year score of 2.3%, but LDL near 190. Patient working on lifestyle modifications. Will recheck mid 2019 Alisia Velez MD .................... 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 History of breast cancer 11/07/2011 Overview (07/26/2018): Overview: Left, had left partial mastectomy, also had chemo and radiation, age 25. (1992) States neg BRCA 1 and 2 done years ago. Premature menopause 11/07/2011 Overview (07/26/2018): Overview: Age 36. Family history of ovarian cancer 11/07/2011 Overview (07/26/2018): Overview: Sister at 53 and paternal grandmother as well as several paternal cousins. Resolved Problems Problem Noted Date Diagnosed Date Resolved Date History of bipolar disorder 12/16/2014 07/26/2018 Encounters Date Type Department Care Team Description 02/07/2024 9:15 AM SHIRRING TENDER Telemedicine [facility] [address] [facility] [address] [place] [address] Jose David Ibanez DO Telehealth ([place]iatry - [place]) 02/07/2024 Travel 02/01/2024 Telephone [facility] [address] [address] Jose David Ibanez DO Error-please disregard 01/28/2024 10:15 AM SHIRRING TENDER Phone Office Visit [facility] [address] [facility] [address] [place] [address] Nguyen Castillo LICSW Individual Therapy 01/16/2024 12:15 PM CDT Telemedicine [facility] [address] [facility] [address] [place] [address] Jose David Ibanez DO Phone Visit (Psychiatry - [place] ) 01/03/2024 Telephone [facility] [address] [facility] [address] [place] [address] Nguyen Castillo LICSW Late Cancel Appointment (Pt has a conflict with her class schedule) 12/26/2023 1:45 PM CDT Telemedicine [facility] [address] [facility] [address] [place] [address] Jose David Ibanez DO Telehealth ([place]); Medication Management 12/11/2023 10:15 AM CDT Telemedicine [facility] [address] [facility] [address] [place] [address] Jose David Ibanez, DO Medication Management; Telehealth ([place]iatry - [place] ) 12/11/2023 Travel 12/10/2023 Refill [facility] [address] [facility] [address] [place] [address] Jose David Ibanez, Refill Request (Paroxetine 20mg and 40 mg tabs) 12/06/2023 8:30 AM CDT Telemedicine [facility] [address] [place] [address] [place] [address] Nguyen Castillo, [facility] Individual Therapy; Trmt Plan from Last 3 Months Immunizations Name Administration Dates Next Due Influenza A (H1N1), Inactiva krystle (Age >=3 Years) 01/30/2009 Influenza Virus, Unspecified 06/12/2018 Influenza, IIV4 01/01/2019,12/16/2014,12/11/2013 Pneumococcal conj 13-Valent (Prevnar 13) 015 Td (Age >=7 Years) 03/25/2013 Tdap 12/16/2014 Family History Medical History Relation Name Comments Psychiatric illness Father bipolar? Cancer-ovarian Other cousin Cancer-ovarian Paternal Grandmother Relation Name Status Comments Father Other Paternal Grandmother Social History Tobacco Use Types Packs/Day Years Used Date Smoking Tobacco: Never Smokeless Tobacco: Never Tobacco Cessation:Counseling Given: Not Answered Alcohol Use Standard Drinks/Week Comments Not Currently 0 (1 standard drink = 0.6 oz pur e alcohol) PHQ-2 Answer Date Recorded PHQ-2 TOTAL SCORE 0 02/07/2024 Sex and Gender Information Value Date Recorded Sex Assigned at Not on file Gender Identity Not on file Sexual Orientation Not on file Obstetrics History Para Term AB IAB SAB Ectopic Multiple Livin g Live Births 2 2 1 1 2 2 Date Outcome GA Total Labor Labor/2nd/3rd Weight Sex Type Anes PTL Deisi A1 A5 Name Clin 1985 Term 2.27 kg (5 lb) F C-Sec tion N Living 1998 0.91 kg (2 lb) M C-Sec tion Y Living Last Filed Vital Signs Vital Sign Reading Time Taken Comments Blood Pressure 149/100 2021 11:11 AM CDT Pulse 100 2021 11:11 AM CDT Temperature 36.5 ??C (97.7 ??F) 03/28/2021 9:12 AM CS T Respiratory Rate 18 03/28/2021 9:12 AM SHIRRING TENDER Oxygen Saturation 98% 07/26/2018 11: 40 AM CDT Inhaled Oxygen Concentration - - Weight 45.8 kg (100 lb 14.4 oz) 022 11:11 AM CDT Height 156.2 cm (5' 1.5) 2021 11 :11 AM CDT Body Mass Index 18.76 2021 11:11 AM CDT Plan of Treatment Upcoming Encounters Date Type Department Care Team (Late st Contact Info) Description 02/11/2024 10:15 AM SHIRRING TENDER Phone Office Visit [facility] [address] [place] [address] [place] [address] Nguyen Castillo, [facility] [address] [place] [address] 04/24/2024 9:40 AM SHIRRING TENDER Office Visit [facility] [address] [place] [address] Maryanne Valentin MD [address] [place], [place] [phone] Health Maintenance Due Date Last Done Comments HIV for age 15-65 10/03/1978 Zoster (shingles) series for age 50+ (1 of 2) 10/03/2013 Pap test for age 21-65 11/07/2015 3 (Completed outside of [facility]) Mammogram for age 45-75 03/10/2020 03/10/2019 Fecal testing non-DNA (FIT,FOBT,iFOBT) for age 45-75 05/26/2020 05/27/2019 BMI (ht and wt on same day) for age 18+ 2022 2021, 04/15/2019, 02/11/2019, Additional history exists COVID-19 vaccine series (2023- season) 2023 10/21/2020, 08/09/2020 Influenza for age 50-64 11/25/2023 01/02/20, 06/12/2018, 01/07/2017 ([facility]), Additional history exists Lipids for age 45-75 03/10/2024 03/10/2019, 07/02/2013, 06/18/2008 Tetanus booster 12/16/2024 12/16/2014, 03/25/2013 Depression screening for age 12+ 02/06/2025 02/07/2024, 12/26/2023, 12/11/2023, Additional history exists Pneumococcal series for age 6-64 Aged Out 12/16/2014 No longer eligible based on patient's age to complete this topic Tdap Completed 12/16/2014 Hepatitis C screening for age 18-79 Completed 03/10/2019 Procedures Procedure Name Priority Date/Time Associated Diagnosis Comments OCCULT BLOOD IFOBT STOOL Routine 05/27/2019 4:47 PM SHIRRING TENDER Screening for colorectal cancer XR MAMMO NICOLETTE BILAT SCREEN Routine 03/10/2019 2:43 PM SHIRRING TENDER Visit for screening mammogram ANTI HCV Routine 03/10/2019 11:54 AM SHIRRING TENDER Need for hepatitis C screening test LIPID PANEL W REFLEX MEASURED LDL Routine 03/10/2019 11:54 AM SHIRRING TENDER Screening for lipid disorders from Last 3 Months or Most Recently Relevant to Health Maintenance Results * OCCULT BLOOD IFOBT STOOL (05/27/2019 4:47 PM SHIRRING TENDER) STOOL BLOOD ,IFOBT Negative Negative 05/30/2019 10:26 AM SHIRRING TENDER [facility] Stool STOOL SPECIMEN / Unknown Non-Blood / Unknown 05/27/2019 4:47 PM SHIRRING TENDER 05/27/2019 4:47 PM SHIRRING TENDER Alisia Velez MD LABORATORY [facility] [address] [place] [address], [place] [phone] * XR MAMMO NICOLETTE BILAT SCREEN (03/10/2019 2:43 PM SHIRRING TENDER) Anatomical Region Laterality Modality BREASTS, Breast Left, Breast Right Bilateral Mammography Impressions 03/11/2019 2:16 PM SHIRRING TENDER ??There is no radiographic evidence for malignancy. ??Recommend annual mammograms. A lay language report of this examination will be provided to the patient. MAMMOGRAM ASSESSMENT: ??ACR 1 Negative Narrative 03/11/2019 2:16 PM SHIRRING TENDER XR MAMMO NICOLETTE BILAT SCREEN [[id number]] CLINICAL HISTORY: ??This is an asymptomatic 53 y.o. patient. INDICATION FOR EXAM: Mammogram Screening. TECHNIQUE: CC & MLO views were obtained. ??This digital study was evaluated with the assistance of Computer-Aided Detection. Breast Tomosynthesis was used in interpretation. COMPARISON FILM: Yes 09/12/13 QUEENIE MCDONNELL FINDINGS: ??Mammographically, the breast tissue is heterogeneously dense, which could obscure detection of small masses. There are no dominant masses, suspicious micro calcifications or areas of architectural distortion. Alisia Velez MD MAMMO * (ABNORMAL) LIPID PANEL W REFLEX MEASURED LDL [[id number]] (03/10/2019 11:54 AM SHIRRING TENDER) CHOLESTEROL,TOTAL 300(H) 100 - 199 mg/dL 03/11/2019 12:05 AM [facility] TRIGLYCERIDES 54 <150 mg/dL 03/11/2019 12:05 AM SHIRRING TENDER [facility] [employer] [facility] HDL CHOLESTEROL 100 >40 mg/dL 9 12:05 AM SHIRRING TENDER [facility] NON-HDL CHOLESTEROL 200(H) <145 mg/dl 03/11/2019 12:05 AM SHIRRING TENDER [facility] CHOL/HDL RATIO 3.00 <4.50 03/11/2019 12:05 AM SHIRRING TENDER [facility] LDL CHOLESTEROL 189(H) <=130 mg/dL 03/11/2019 12:05 AM SHIRRING TENDER [facility] PROVIDER ORDERED STATUS RANDOM 03/11/2019 12:05 AM SHIRRING TENDER [facility] Blood BLOOD SPECIMEN / Unknown Venipuncture / Unknown 03/10/2019 11:54 AM SHIRRING TENDER 03/10/2019 11:54 AM SHIRRING TENDER Alisia Velez MD CHEMISTRY [facility] [address] [place] [address], * ANTI HCV (03/10/2019 11:54 AM SHIRRING TENDER) HEPATITIS C ANTIBODY Non-React vera Non-React vera 03/10/2019 11:51 PM SHIRRING TENDER [facility] Comment:Antibodies to HCV no t detected; does not exclude the possibility of exposure to HCV. Blood BLOOD SPECIMEN / Unknown Venipuncture / Unknown 03/10/2019 11:54 AM SHIRRING TENDER 03/10/2019 11:54 AM SHIRRING TENDER Alisia Velez MD SEND OUTS Performing Organization Address City/[facility]/ZIP Co de Phone Number [facility] [address] [place] [address], from Last 3 Months or Most Recently Relevant to Health Maintenance Advance Directives * Full Code (Latest Code Status on File) Date Activated Date Inactivated Comments 06/20/2016 3:13 PM 06/21/2016 5:44 PM Question Answer Comments Code Status Discussion: Discussed Care Teams Automation Mechanic Relationship Specialty Start Date End Date Nguyễn Orta MD [address] [place] [id number] PCP - General Internal Medicine 11/08/22 None . 06/16/08 Nikia Lawson, [facility] [address] [place] [id number] Facility Planner 10/29/17 Nguyen Castillo [facility] [address] [place] [address] Therapist Facility Planner 08/25/19 Jose David Ibanez DO [address] [place] [phone] Psychiatry 08/16/22
== END 2024-02-07 13:19 | disposition home or self-care (01) ==
LOC: NFLDREF 02-10 16:31
PROVIDERS: PCP Internal Medicine; Referring Provider Internal Medicine; Visit Provider Internal Medicine
DX: E11.9 Type 2 diabetes mellitus without complications (principal); E03.9 Hypothyroidism, unspecified; D64.9 Anemia, unspecified; I10 Essential (primary) hypertension; Z13.1 Encounter for screening for diabetes mellitus
CPT/HCPCS: 80048; 84443

== ENCOUNTER 2024-05-20 09:52 | Outpatient (CLI) | payer MEDICARE, SELFPAY | END 2024-05-20 09:53 | disposition home or self-care (01) | LOC: NFLDREF 05-21 10:34 | PROVIDERS: PCP Internal Medicine; Referring Provider Internal Medicine; Visit Provider Internal Medicine | DX: R82.90 Unspecified abnormal findings in urine (principal) | CPT/HCPCS: 87086 ==

== ENCOUNTER 2024-09-30 14:22 | Emergency (ER) | payer MEDICARE, SELFPAY ==
--- OUTSIDE RECORDS SUMMARY | 2015-11-17 07:15 | XMS_ITS | Continuity of Care Document ---
Author Organization Jose [facility] Address [address] [place] [address] Phone Care Team Providers Care Independent Film Maker Name Role Phone Buck PT PTRadha Unavailable Unavailable Allergies, Adverse Reactions, Alerts Substance Reaction Status Criticality BUPROPION HCL Active No Information FLUOXETINE HCL Active No Informatio n Medications Medication Instructions Dosage Effective Dates (start - stop) Status Comments carbamazepine ER 100 mg capsule,extended release [id number] take 1 capsule by oral route every 12 hours 100 MG - Active lithium carbonate 300 mg capsule take 1 capsule by oral route every day 300 MG - Active Seroquel 25 mg tablet take 1 tablet by oral route every day 25 MG - Active gabapentin 100 mg capsule take 1 capsule by oral route 3 times every day 100 MG - Active Vicodin 5 mg-300 mg tablet take 1 tablet by oral route every 4 - 6 hours as needed for pain - Active tamsulosin 0.4 mg capsule take 1 capsule by oral route every day 1/2 hour following the same meal each day 0.4 MG - Active Vicodin 5 mg-300 mg tablet take 1-2 tablet by oral route every 4 - 6 hours as needed for pain for post procedure pain - No Longer Active Procedures Procedure Date No Show Visit Fee Fluoro Guidance - NonSpine Destrct Trigeminal; W/radiolog 16 IV Cons Sed First 30M Destrct Trigeminal; W/radiolog 16 Adverse Events did not occur Patient without preop order for prophyla ctic IV an Destrct Trigeminal; W/radiolog 16 Mod cs by same phys, 5 yrs + No Show Visit Fee No Show Visit Fee Inj Anes Agent; Trigeminal Ner 16 Fluoro Guidance - NonSpine IV Cons Sed First 30M Adverse Events did not occur Inj Anes Agent; Trigeminal Ner 16 Adverse Events did not occur Patient without preop order for prophyla ctic IV an Trigeminal Branch Block New Pt Eval 45 Min Advance Directives Directive Yes / No Effective Date File Name No Information Encounters Encounter Description Practice Location Reason(s) For Visit Diagnoses Date Provider Providers Copied on Encounter Jose, [facility], [address], [place], [place], [id number], [place] tel:[phone] [place] [facility] No Information 6 Jane PT Radha. [address] [place], [place], [id number], [place]. tel:[phone] Referring Provider: Cindy Mike MD, [address] [facility], [place], [address]. tel:[phone] [facility], [address], [place], [place], [id number], [place] tel:[phone] [place] [facility] 7390 No Information 6 Jane PT Radha. [address] [place], [id number], [place]. tel:[phone] [facility], [address], [place], [address], [place] tel:[phone] [facility] [place] No Information 6 Cynthia Funes. [address], [place], [place], [id number], [place]. tel:[phone] Referring Provider: Marin Hallman, [address], [place], [address] . tel:[phone] [facility], [address], [place], [place], [id number], [place] tel:[phone] [facility] [place] No Information Cynthia Funes. [address], [place], [place], [id number], [place]. tel:[phone] Referring Provider: Marin Hallman, [address], [place], [address] . tel:[phone] [facility], [address], [place], [place], [id number], [place] tel:[phone] [facility] No Information No Information Referring Provider: Cindy Mike MD, [address] [facility], [place], [address]. tel:[phone] [facility], [address], [place], [place], [id number], [place] tel:[phone] [facility] 7390 No Information Judith Delgado. [address], [address], [place], [place], [id number], [place]. tel:[phone] Referring Provider: Cindy Mike MD, [address] [facility], [place], [address]. tel:[phone] [facility], [address], [place], [address], [place] tel:[phone] [facility] [place] Trigeminal neuralgia No Information [facility], [address], [place], [place], [id number], [place] tel:[phone] [facility] [place] No Information No Information New Pt Eval 45 Min Jose, [facility], [address], [place], [place], [id number], [place] tel:[phone] [facility] Trigeminal neuralgia No Information Referring Provider: Cindy Mike MD, [address] [facility], [place], [address]. tel:[phone] Family History Family Member Type Diagnosis Age At Onset Mother Problem (finding) diabetes melli tus in first degree relative Payers Payer name Insurance type Covered green party ID Authoriza tion(s) No Information Social History Type Description Quantity Date Captured Comments Sex Female Smoking Status No Information Chief Complaint And Reason For Visit No Information Reason For Referral Reason For Referral No Information History Of Present Illness Encounter Date Complaint History Of Prese nt Illness No Information Functional Status Date Functional Assessmen t No Information Instructions Date Instruction Additional Infor mation No Information Assessments Type Assessment Date No Information Patient Care Teams Name Effective Dates (start - stop) Status Members No Information
--- OUTSIDE RECORDS SUMMARY | 2024-09-30 14:25 | XMS_ITS | Encounter Summary ---
Author Organization [facility] Address [address] [place] [address] Care Team Providers Care Coat Checker Name Role Phone Nguyen Rosado MD Primary Care Provide r Encounter Details Date Type Department Care Team (Late st Contact Info) Description 04/03/2019 Correspondence External to External, [place] [address] [facility] Social History Tobacco Use Types Packs/Day Years Used Date Smoking Tobacco: Never Smokeless Tobacco: Never Alcohol Use Standard Drinks/Week Comments Yes 0 (1 standard drink = 0.6 oz pur e alcohol) rare Comments No Sex and Gender Information Value Date Recorded Sex Assigned at Not on file Legal Sex Female 7:40 PM CDT Gender Identity Not on file Sexual Orientation Not on file Occupation Industry Job Start Date Job End Date not working Not on file Not on file Not on file documented as of this encounter Plan of Treatment Not on file documented as of this encounter Visit Diagnoses Not on filedocumented in this encounter Additional Health Concerns Infection Onset Date Last Indicated Resolved Time R/O COVID19 06/23/2020 06/23/2020 06/23/2020 8:05 PM CDT R/O COVID19 11/29/2020 11/29/2020 11/29/2020 8:09 AM CDT documented as of this encounter Care Teams Coat Checker Relationship Specialty Start Date End Date Nguyen Rosado MD [address] [place] [address] PCP - General Internal Medicine 03/17/20 documented as of this encounter
--- OUTSIDE RECORDS SUMMARY | 2024-09-30 14:25 | XMS_ITS | Encounter Summary ---
Author Organization [facility] Address [address] [place] [address]. [place] [address] Care Team Providers Care Histology Technician Name Role Phone Soheila Greene ROD OFFICE MACHINE EMBOSSOGRAPH OPERATOR Unavailable [phone] Ruby Michel MD Unavailable Ruby Michel MD Unavailable Nguyễn Orta MD Primary Care Provider Encounter Details Date Type Department Care Team (Late st Contact Info) Description 09/10/2024 Telephone [facility] [address] [address] Ruby Michel MD [address] [place] [address] Social History Tobacco Use Types Packs/Day Years Used Date Smoking Tobacco: Never Smokeless Tobacco: Never PHQ-2 Answer Date Recorded PHQ-2 Score 0 05/26/2024 Adolescent Education Answer Date Record ed Getting School Help Needed Not on file 12/16 Comments Unknown Sex and Gender Information Value Date Recorded Sex Assigned at Not on file Legal Sex Female 4:21 AM ARCHITECTURAL ASSOCIATE Gender Identity Not on file Sexual Orientation Not on file documented as of this encounter Miscellaneous Notes * Telephone Encounter - Franklin Benitez RN - 09/11/2024 1:54 PM CDT Returned call to patient she reports shortness of breath, has history of asthma. Per patient, she was seen in asthma clinic yesterday, lung sounds were clear. She feels that work of breathing is manageable with home regimen. Heat is making her weakness related to MS worse, uses walker and cane, improved with air conditioning and rest. She has cooling vest and will minimize outdoor activities. RN asked her to continue to monitor MS symptoms and report back to clinic if they don't improve with cooling interventions. Asked her to continue to update asthma clinic as needed if she has any concerns with breathing, she is agreeable. Franklin Savage, RN, BSN [facility] * Telephone Encounter - Christina Mishra - 09/10/2024 10:32 AM CDT [facility] Phone Message May a detailed message be left on voicemail: yes Reason for Call: Other: Pt is calling and stating that she wanted to up date Pt is stating that if she stays in bed and takes it easy that she will feel better Pt will go to her AA meetingsand also if she does get worse she will go to the hospital. Please call Pt back if there are any questions. Action Taken: Message routed to: [facility] Travel Screening: Not Applicable Date of Service: documented in this encounter Plan of Treatment Upcoming Encounters Date Type Department Care Team (Late st Contact Info) Description 2024 12:20 PM CDT Appointment [facility] [place] [phone] Ruby Michel MD [address] [place] [address] 2024 1:00 PM CDT Appointment [facility] [address] [place] [phone] Ruby Michel MD [address] [place] [address] 10/09/2024 11:30 AM CDT Office Visit [facility] [address] [place] [phone] Ruby Michel MD [address] [place] [address] documented as of this encounter Visit Diagnoses Not on filedocumented in this encounter Care Teams Histology Technician Relationship Specialty Start Date End Date Nguyễn Orta MD [facility] [address] [place] [address] PCP - General Internal Medicine 11/14/22 Soheila Greene APRN OFFICE MACHINE EMBOSSOGRAPH OPERATOR [address] [place] [address] [id number] [place] [address] Nurse Practitioner Neurological Surgery 04/26/22 Ruby Michel MD [address] [place] [address] Neurology 07/10/22 Ruby Michel MD [address] [place] [address] Assigned Neuroscience Provider 08/19/22 documented as of this encounter
--- OUTSIDE RECORDS SUMMARY | 2024-09-30 14:25 | XMS_ITS | Encounter Summary ---
Author Organization [facility] Address [address] [place] [address] Care Team Providers Care Acetylene Cutter Name Role Phone Soheila Greene ROD DIRECTOR OF GRANTS Unavailable Ruby Michel MD Unavailable [phone] Ruby Michel MD Unavailable [phone] Nguyễn Orta MD Primary Care Provider Reason for Visit * Reason Onset Date Comments Medication Question 09/22/2024 Pain relieve r for occipital neuralgia Encounter Details Date Type Department Care Team (Late st Contact Info) Description 09/22/2024 Telephone [facility] [address] [phone] Ruby Michel MD [address] [place] [address] Medication Question (Pain reliever for occipital neuralgia) Social History Tobacco Use Types Packs/Day Years Used Date Smoking Tobacco: Never Smokeless Tobacco: Never PHQ-2 Answer Date Recorded PHQ-2 Score 0 05/26/2024 Adolescent Education Answer Date Record ed Getting School Help Needed Not on file 12/16 Comments Unknown Sex and Gender Information Value Date Recorded Sex Assigned at Not on file Legal Sex Female 4:21 AM PRIMER POWDER BLENDER WET Gender Identity Not on file Sexual Orientation Not on file documented as of this encounter Miscellaneous Notes * Telephone Encounter - Meena Godinez RN - 09/22/2024 4:13 PM CDT Returned call to Renetta. Discussed that Dr. Michel is not comfortable prescribing narcotic pain medications without seeing her in clinic, so when she comes in for appointment on 10/09 she can discuss further. Informed patient that Dr. Michel would like to prescribe nortriptyline to see if that has any effect on her pain. Patient in agreement with this plan. Verified pharmacy in pended order below. Meena Savage RN [facility] * Telephone Encounter - Ruby Michel MD - 09/22/2024 3:20 PM CDT I do not feel comfortable prescribing a narcotic medication for this patient without discussing at an office visit An appropriate pain medication for occipital neuralgia given her past intolerance of carbamazepine and gabapentin is nortriptyline I recommend she start with 10 mg at bedtime for 1 week, then take 20 mg at bedtime -> rx pended Please verify pharmacy Ruby Michel MD on 09/22/2024 at 3:21 PM * Telephone Encounter - Meena Gdoinez RN - 09/22/2024 3:01 PM CDT Returned call to Renetta regarding the occipital neuralgia pain she has been experiencing. Patient was being followed by [facility] for facial pain, but patient states she is not following with them currently because they do not accept her insurance. She states that it has been months since she has seen them. Patient has stopped taking gabapentin, carbamazepine, and baclofen 3 months ago because they toldher to. When technical proposal writer asked patient who they was she stated [facility]. Patient reports Excedrin will help a little bit and a cold pack behind the head. Patient expresses she would like a pain medication for whenever the pain comes on. NOV is 10/09/24. Dr. Michel - Please let me know if you have any input or recommendations for patient. Meena B., RN [facility] * Telephone Encounter - [place], Piper - 09/22/2024 7:42 AM CDT [facility] Phone Message May a detailed message be left on voicemail: yes Reason for Call: Yifan Jackson calling to request a call back to discuss getting a prescription for pain relief. Yifan Jackson stated that over the weekend, she has been struggling with a bad bout of occipital neuralgia. Yifan Jackson does not want to go to any emergency departments. [facility], [address] [place] [address], phone [phone] Action Taken: Message routed to: Other[facility] Travel Screening: Not Applicable Date of Service: documented in this encounter Plan of Treatment Upcoming Encounters Date Type Department Care Team (Late st Contact Info) Description 2024 12:20 PM CDT Appointment [facility] [address] [place] [phone] Ruby Michel MD [address] [place] [address] 2024 1:00 PM CDT Appointment [facility] [address] [place] [phone] Ruby Michel MD [address] [place] [address] 10/09/2024 11:30 AM CDT Office Visit [facility] [address] [place] [address] Ruby Michel MD [address] [place] [address] documented as of this encounter Visit Diagnoses Diagnosis Cervico-occipital neuralgia of left side- Primary documented in this encounter Care Teams Acetylene Cutter Relationship Specialty Start Date End Date Nguyễn Orta MD [facility] [address] [place] [address] PCP - General Internal Medicine 11/14/22 Soheila Greene APRN DIRECTOR OF GRANTS [address] [place] [address] [id number] [place] [address] Nurse Practitioner Neurological Surgery 04/26/22 Ruby Michel MD [address] [place] [address] Neurology 07/10/22 Ruby Michel MD [address] [place], [place] [address] Assigned Neuroscience Provider 08/19/22 documented as of this encounter
--- OUTSIDE RECORDS SUMMARY | 2024-09-30 14:25 | XMS_ITS | Encounter Summary ---
Author Organization [facility] Address [address] [place] [address] Care Team Providers Care Loaders Name Role Phone Soheila Greene ORD COMMAND POST CRAFTSMAN Unavailable Ruby Michel MD Unavailable [phone] Ruby Michel MD Unavailable Nguyễn Orta MD Primary Care Provider Encounter Details Date Type Department Care Team (Late st Contact Info) Description 11/16/2023 MyC Medical Advice [facility] [address] [place] [phone] Ruby Michel MD [address] [place] [address] Social History Tobacco Use Types Packs/Day Years Used Date Smoking Tobacco: Never Smokeless Tobacco: Never PHQ-2 Answer Date Recorded PHQ-2 Score 0 05/01/2022 Adolescent Education Answer Date Record ed Getting School Help Needed Not on file 12/16 Comments Unknown Sex and Gender Information Value Date Recorded Sex Assigned at Not on file Legal Sex Female 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 Gender Identity Not on file Sexual Orientation Not on file documented as of this encounter Plan of Treatment Upcoming Encounters Date Type Department Care Team (Late st Contact Info) Description 2024 12:20 PM CDT Appointment [facility] [address] [place] [address] Ruby Michel MD [address] [place] [address] 2024 1:00 PM CDT Appointment [facility] [address] [place] [phone] Ruby Michel MD [address] [place] [address] 10/09/2024 11:30 AM CDT Office Visit [facility] [address] [place] [address] Ruby Michel MD [address] [place] [address] documented as of this encounter Visit Diagnoses Not on filedocumented in this encounter Care Teams Loaders Relationship Specialty Start Date End Date Nguyễn Orta MD [facility] [address] [place] [address] PCP - General Internal Medicine 11/14/22 Soheila Greene APRN CNP [address] [place] [address] [id number] [place] [address] Nurse Practitioner Neurological Surgery 04/26/22 Ruby Michel MD [address] [place] [address] Neurology 07/10/22 Ruby Michel MD [address] [place] [address] Assigned Neuroscience Provider 08/19/22 documented as of this encounter
--- OUTSIDE RECORDS SUMMARY | 2024-09-30 14:25 | XMS_ITS | Encounter Summary ---
Author Organization [facility] Address [address] [place] [address] Care Team Providers Care Nurse Plastics Name Role Phone Soheila Greene ROD FIRE CONTROL ASSISTANT Unavailable Ruby Michel MD Unavailable [phone] Ruby Michel MD Unavailable Nguyễn Orta MD Primary Care Provider Encounter Details Date Type Department Care Team (Late st Contact Info) Description 08/30/2023 MyC Medical Advice [facility] Clinic [facility] [address] [place] [phone] Ruby Michel MD [address] [place] [address] Social History Tobacco Use Types Packs/Day Years Used Date Smoking Tobacco: Never Smokeless Tobacco: Never PHQ-2 Answer Date Recorded PHQ-2 Score 0 05/01/2022 Adolescent Education Answer Date Record ed Getting School Help Needed Not on file 12/16 Comments Unknown Sex and Gender Information Value Date Recorded Sex Assigned at Not on file Legal Sex Female 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 Gender Identity Not on file Sexual Orientation Not on file documented as of this encounter Plan of Treatment Upcoming Encounters Date Type Department Care Team (Late st Contact Info) Description 2024 12:20 PM CDT Appointment [facility] [address] [place] [address] Ruby Michel MD [address] [place] [address] 2024 1:00 PM CDT Appointment [facility] [address] [place] [phone] Ruby Michel MD [address] [place] [address] 10/09/2024 11:30 AM CDT Office Visit [facility] Neurology [facility] [address] [place] [address] Ruby Michel MD [address] [place] [address] documented as of this encounter Visit Diagnoses Not on filedocumented in this encounter Care Teams Nurse Plastics Relationship Specialty Start Date End Date Nguyễn Orta MD [facility] [address] [place] [address] PCP - General Internal Medicine 11/14/22 Soheila Greene APRN CNP [address] [place] [address] [id number] [place] [address] Nurse Practitioner Neurological Surgery 04/26/22 Ruby Michel MD [address] [place] [address] Neurology 07/10/22 Ruby Michel MD [address] [place] [address] Assigned Neuroscience Provider 08/19/22 documented as of this encounter
--- OUTSIDE RECORDS SUMMARY | 2024-09-30 14:25 | XMS_ITS | Encounter Summary ---
Author Organization [facility] Address [address] [place] [address]. [place] [address] Care Team Providers Care Outside Industrial Sales Representative Name Role Phone Soheila Greene ROD CCTV TECHNICIAN Unavailable Ruby Michel MD Unavailable [phone] Ruby Michel MD Unavailable Nguyễn Orta MD Primary Care Provider Encounter Details Date Type Department Care Team (Late st Contact Info) Description 08/01/[address] 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 documented in this encounter Plan of Treatment Upcoming Encounters Date Type Department Care Team (Late st Contact Info) Description 2024 12:[address] [facility] [address] [place] [phone] Ruby Michel MD [address] [place] [address] 2024 1:[address] [facility] [address] [place] [phone] Ruby Michel MD [address] [place] [address] 10/09/2024 11:30 AM CDT Office Visit [facility] [address] [place] [address] Ruby Michel MD [address] [place] [address] documented as of this encounter Visit Diagnoses Not on filedocumented in this encounter Care Teams Outside Industrial Sales Representative Relationship Specialty Start Date End Date Nguyễn Orta MD [facility] [address] [place] [address] PCP - General Internal Medicine 11/14/22 Soheila Greene APRN CCTV TECHNICIAN [address] [facility] [id number] [place] [address] Nurse Practitioner Neurological Surgery 04/26/22 Ruby Michel MD [address] [place], [place] [address] Neurology 07/10/22 Ruby Michel MD [address] [place], [place] [address] Assigned Neuroscience Provider 08/19/22 documented as of this encounter
--- OUTSIDE RECORDS SUMMARY | 2024-09-30 14:25 | XMS_ITS | Clinical Summary ---
[facility] Address [address] [place] [address] Care Team Providers Care Seafood Service Team Member Name Role Phone Nguyen Rosado MD Primary [...] for each transition of care or referral. [facility] Allergies Active Allergy Reactions Criticality Noted Date [...] 50 mg IV Benadryl prior to MRI. Cannot have steriods. Dr Stanton ok'd Benadryl . Marisol Prasad RN 11/11/2021, 10:31 AM Lamotrigine Other, see comments 09/28/2014 PN: hand appeared blackish purple Methylprednisolone Anaphylaxis High 06/20/2016 Metrizamide Hives High 01/04/2012 PN: Pt had MRI and reacted to dye with hives around her mouth Medications aspirin-acetaminop hen-caffeine (EXCEDRIN,MIGRAINE ) 250-250-65 MG tablet Take 2 Tablets by mouth daily as needed for Pain (Headache). Active QUEtiapine (SEROQUEL) 100 MG tablet Take 1 Tablet (100 mg) by mouth at bedtime as needed. Active Cholecalciferol (VITAMIN D3) 2000 units TABS TAKE 2 TABLETS BY MOUTH DAILY 180 Tablet 01/04/20 19 Active Additional Information Patient not taking.Informant: Pharmacy/Pharmacist, Reported on 04/04/2022 PARoxetine (PAXIL) 40 MG tablet Take 1 Tablet (40 mg) by mouth daily. 02/10/20 20 Active ondansetron (ZOFRAN-ODT) 8 MG disintegrating tablet Take 1 Tablet by mouth every 8 hours as needed for Nausea. 15 Tablet 12/01/19 21 Active meclizine (ANTIVERT) 12.5 MG tablet Take 1 Tablet by mouth three times a day as needed for Dizziness/Vertigo . 30 Tablet 12/21/19 21 Active Additional Information Patient not taking.Reported on 04/04/2022 carBAMazepine (TEGRETOL XR) 100 MG 12 hour release tablet TAKE 1 TABLET BY MOUTH THREE TIMES DAILY 270 Tablet 1 01/25/20 21 Active glatiramer acetate (COPAXONE) 40 MG/ML SOSY injection Inject 40 mg subcutaneously three times a week. 12 mL 11 04/20/19 22 Active Additional Information Patient not taking.Reported on 04/04/2022 Ofatumumab 20 MG/0.4ML SOAJIndications:MS (multiple sclerosis) ([facility]) Inject 20 mg subcutaneously once per week for weeks 0, 1, 2 then skip week 3 and proceed with montly injection on week 4. 0.4 mL 2 05/25/19 22 Active Additional Information Patient not taking.Reported on 04/04/2022 Ofatumumab 20 MG/0.4ML SOAJIndications:MS (multiple sclerosis) ([facility]) Starting week 4, Inject 20 mg subcutaneously every month. 0.4 mL 5 05/25/19 22 Active Additional Information Patient not taking.Reported on 04/04/2022 prochlorperazine (COMPAZINE) 10 MG tabletIndications: Nausea Take 1 Tablet (10 mg) by mouth every 6 hours as needed for Nausea or Vomiting for up to 12 doses. 12 Tablet 3 09/16/19 Active Additional Information Patient not taking.Reported on 04/04/2022 gabapentin (NEURONTIN) 100 MG capsule Take 1 Capsule (100 mg) by mouth three times a day. 270 Capsule 3 02/02/20 Active amLODIPine (NORVASC) 10 MG tablet TAKE 1 TABLET BY MOUTH DAILY 90 Tablet 10/12/19 Active levothyroxine (SYNTHROID) 75 MCG tabletIndications: Hypothyroidism, unspecified type (HRC),Medication refill TAKE 1 TABLET BY MOUTH DAILY 90 Tablet 10/12/19 Active Active Problems Problem Noted Date Diagnosed [...] Small, bilateral, noted on outside MRI at [facility]. Referred to pulmonary. Bipolar affective disorder 11/07/2011 0 08/21/2013 Overview (11/15/2016): Other bipolar disorders (HRC) Immunizations Immunization Administration Dates Next Due Influenza I9A8-67 01/30/2009 Influenza IIV4 (Quadrivalent ) 0.5mL (67323) 01/06/2021,02/12/2020,01/01/2019,2014,12/11/2013,03/03/2013 Influenza, Unspecified Formulation 06/12/2018 PCV13 (Prevnar) 12/16/2014 Pfizer Monovalent 12+ Purple Top 10/21/2020,07/24 TDAP (BOOSTRIX) 08/21/2013 Td 03/25/2013 Tdap 12/16/2014 Family History Medical History Relation Name Comments Cancer Father prostate Coronary Artery Disease Father SD a t 32 y/o, recovered afterwards Mental Disorder Father bipolar diso rder Other Father Celiac Disease Mother Son has glute n intolerance, not diagnosed with celiac disease. Diabetes Mother Heart Disease Mother High Cholesterol Mother Hypertension Mother THYROID DISEASE Mother Thyroid Disorder Mother Cancer Other On father's stuart e, from [facility], many types of cancer including brain, ovarian, [...] 0.6 oz pur e alcohol) 1 daily Comments No Sex and Gender Information Value Date Recorded Sex Assigned at Not on file Legal Sex Female 7:40 PM CDT Gender Identity Not on file Sexual Orientation Not on file Occupation Industry Job Start Date Job End Date not working Not on file Not on file Not on file Last Filed Vital Signs Vital Sign Reading Time Taken Comments Blood Pressure 161/110 04/04/2022 2:58 PM VEGETABLE TESTER Provider informed of elevated BP Pulse 83 04/04/2022 2:58 PM VEGETABLE TESTER Temperature 36.8 C (98.2 F) 03/17/2022 11:59 AM VEGETABLE TESTER Respiratory Rate 17 03/17/2022 2:30 PM VEGETABLE TESTER Oxygen Saturation 95% 03/17/2022 5:1 5 PM VEGETABLE TESTER Inhaled Oxygen Concentration - - Weight 46.3 kg (102 lb) 04/04/2022 2:53 PM VEGETABLE TESTER Height 158 cm (5' 2.21) 01/06/2021 11: 09 AM CDT Body Mass Index 18.53 01/06/2021 11:09 AM CDT Plan of Treatment Health Maintenance Due Date Last Done Comments HIV Screening (Preventive Services) 1979 Zoster/Shingles Vaccine (1 of 2) 10/03/2013 Pneumococcal Vaccine 50+ Yrs (2 of 2 - PCV) 12/17/2015 12/16/2014 Cervical Cancer Screening 12/08/20192016, 12/07/2016, 11/30/2011 Mammogram 03/10/2020 03/10/2019, 02/23 (Completed), 09/12/2013 FIT Colon Cancer Screening 05/26/2020 05/27/2019 COVID-19 Vaccine (3 - season) 2023 10/21/2020, 08/09/2020 Medicare Annual Wellness Visit 03/26/2024 Influenza Vaccine (#1) 2024 , 02/12/2020, 01/01/2019, Additional history exists DTaP/Tdap/Td Vaccine (3 - Tdap) 12/16/2024 12/16/2014, 08/21/2013, 03/25/2013 Cholesterol 01/06/2026 01/06/2021, 02/23, 12/27/2011 RSV Vaccine (1 - 1-dose 75+ series) 10/03/2038 Hep C Screening (Preventive Services) Completed 03/10/2019 (Completed) HepA Vaccine Aged Out No longer eligi ble based on patient's age to complete this topic HepB Vaccine Aged Out No longer eligi ble based on patient's age to complete this topic Hib Vaccine Aged Out No longer eligi ble based on patient's age to complete this topic IPV (Polio) Vaccine Aged Out No longe r eligible based on patient's age to complete this topic MCV4 Vaccine Aged Out No longer eligi ble based on patient's age to complete this topic Meningococcal B Vaccine Aged Out No l onger eligible based [...] - 199 mg/dL 01/06/2021 6:15 PM CDT [facility] Triglyceride 58 <=149 mg/dL 01/06/2021 6:15 PM CDT [facility] HDL Cholesterol 94 >=40 mg/dL 01/06/2021 6:15 PM CDT [facility] LDL, Calculated 169(H) <130 mg/dL 01/06/2021 6:15 PM CDT [facility] Non HDL Chol, Calculated 181(H) <=159 mg/dL 01/06/2021 6:15 PM CDT [facility] Cholesterol/HDL Ratio 2.9 01/06/2021 6:15 PM CDT [facility] Hours Fasting 12 01/06/2021 6:15 PM CDT [facility] Blood Venipuncture / Unknown 01/06/2021 12:29 PM CDT 01/06/2021 12:29 PM CDT Nguyen Rosado MD LAB_1 Final Result Performing Organization Address City/State/[facility] Co de Phone Number [facility] [address] [address] [phone] [facility] [address] [place] [phone] [phone] * Pap Smear (12/07/2016 4:30 PM CDT) 12/07/2016 4:30 PM CDT Narrative PN SOFT - 12/13/2016 11:48 AM CDT FINAL GYNECOLOGICAL CYTOLOGY REPORT Pathology #: [id number] Date Obtained: 12/07/2016 Date Received: 12/08/2016 INTERPRETATION/RESULTS: Negative for Intraepithelial Lesion or Malignancy. SPECIMEN ADEQUACY: Satisfactory for Evaluation. Endocervical cells/transformation zone component present. Verified on 12/13/2016 by XAVIER CHAIDEZ(ASCP) (electronic signature) CLINICAL NOTES: Abnormal bleeding: No, LMP: 06/2016, Menstrual status: None Apply, Current form of therapy: None apply LIQUID BASED PAP SMEAR SPECIMEN TYPE: ROUTINE CERVICAL PAP TEST PLEASE NOTE: The pap smear is a screening test designed to aid in the detection of cervical cancer and its precursor lesions. It is not a diagnostic procedure and should not be used as the sole means of detecting cervical cancer. Both false-positive and false-negative reports may occur. Performed at [facility], [facility] [place] [address] us Marilyn Mishra MD LAB_1 Final Resul t MIKEL TILLMAN [facility] [place], [place] [address] * MM Mammogram Screening Bilat W CAD (09/12/2013 7:49 AM CDT) Anatomical Region Laterality Modality Breast Bilateral Mammography Impressions 09/16/2013 11:34 AM CDT : BIRADS 2 Benign Finding(s) (overall) Follow Up Mammogram in 1 year - Bilateral The results and recommendations of this examination will be communicated to the patient by the [facility] and we will attempt to schedule any [...] be communicated to the patient by the [facility] and we will attempt to schedule any recommended imaging follow up with the patient. BJThe accuracy of mammography for detection of malignancy is reduced in breasts of this type. us Esperanza Richardson MD RAD AMALIA Final Result from Last 3 Months or Most Recently Relevant to Health Maintenance Insurance [facility] MEDICARE ADVANTAGE [facility] MEDICARE ADVANTAGE [id number] [facility] [place] [id number] [facility] [place] [address] Advance Directives * Full Code (Latest Code [...] 1:07 AM 06/19/2018 6:53 PM Care Teams Seafood Service Team Member Relationship Specialty Start Date End Date Nugyen Rosado MD [address] [place] [id number] PCP - General Internal Medicine 03/17/20
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
--- OUTSIDE RECORDS SUMMARY | 2024-09-30 14:25 | XMS_ITS | Encounter Summary ---
Author Organization [facility] Address [address] [place] [address] Care Team Providers Care Clinical Unit Educator Name Role Phone Nguyen Rosado MD Primary Care Provide r Encounter Details Date Type Department Care Team (Late st Contact Info) Description 12/30/2018 Correspondence Radiology [...] on file documented as of this encounter Functional Status documented as of this encounter Plan of Treatment Not on file documented as of this encounter Visit Diagnoses Not on filedocumented in this encounter Additional Health Concerns Infection Onset Date Last Indicated Resolved Time R/O COVID19 06/23/2020 06/23/2020 06/23/2020 8:05 PM CDT R/O COVID19 11/29/2020 11/29/2020 11/29/2020 8:09 AM CDT documented as of this encounter Care Teams Clinical Unit Educator Relationship Specialty Start Date End Date Nguyen Rosado MD [address] [place] [address] PCP - General Internal Medicine 03/17/20 documented as of this encounter
--- OUTSIDE RECORDS SUMMARY | 2024-09-30 14:25 | XMS_ITS | Encounter Summary ---
Author Organization [facility] Address [address] [place] [address] Care Team Providers Care Inspector Crystal Name Role Phone Soheila Greene ROD HOME ENERGY RATER Unavailable + [phone] Ruby Michel MD Unavailable [phone] Ruby Michel MD Unavailable [phone] Nguyễn Orta MD Primary Care Provider Reason for Visit * Reason Onset Date Comments Symptoms 04/15/2024 Exasperation, Ex haustion Encounter Details Date Type Department Care Team (Late st Contact Info) Description 04/15/2024 Telephone [facility] [address] [address] Ruby Michel MD [address] [place] [address] Symptoms (Exasperation, Exhaustion) Social History Tobacco Use Types Packs/Day Years Used Date Smoking Tobacco: Never Smokeless Tobacco: Never PHQ-2 Answer Date Recorded PHQ-2 Score 0 01/21/2024 Adolescent Education Answer Date Record ed Getting School Help Needed Not on file 12/16 Comments Unknown Sex and Gender Information Value Date Recorded Sex Assigned at Not on file Legal Sex Female 4:21 AM SUPERVISOR PAINT Gender Identity Not on file Sexual Orientation Not on file documented as of this encounter Miscellaneous Notes * Telephone Encounter - Franklin Benitez RN - 04/15/2024 12:27 PM CST RN returned call to patient, she reports that her spouse is currently hospitalized at [facility] with plan to discharge to memory care facility. Previously was struggling with care taking and exhaustion, no longer a concern as she is no longer primary caregiver. She reports current food poisoning from an eggplant, also requesting epi pen as she feels she has allergy to egg plant. RN attempted to triage symptoms but she will not disclose allergy symptoms. Denies any facial swelling or difficulty breathing. RN asked her to schedule appt with primary care to discuss concerns and be assessed for allergy further. ER if she has any red flag symptoms. She verbalizes agreement to plan. Patient has not received ampyra, reports that spouses family changed her address and that she has not been receiving mail. She has a plan to fix this and speak to the pharmacy. She will come to clinic to sign JOSE ENRIQUE in order for provider to obtain [facility] records. Will also schedule follow up with Dr. Michel. Plans to compete MRIs with [facility]. Conversation with patient today was very chaotic, she jumped from one topic to the next and struggled to answer questions directly. Focused on eggplant/allergy concerns and financial/legal issues related to spouse and his children. Routing to Dr. Michel as FYI. Phoua also an FYI that pt plans to come to clinic to sign JOSE ENRIQUE for [facility]. Franklin Savage RN, BSN [facility] RVISOR PAINT * Telephone Encounter - Chetan Agrawal - 04/15/2024 9:44 AM CST [facility] Phone Message May a detailed message be left on voicemail: yes Reason for Call: Other: Pt states they have found themselves entirely exhausted over the past few weeks from caring for their . Pt states that they have reported this before (03/17 TE) however, pt has a new phone number, and neglected to update this. Meter And Regulator Shop Supervisor has ensured primary contact on file is appropriate. Please contact pt at [phone] Action Taken: Message routed to: [facility] Neurology Travel Screening: Not Applicable Date of Service: RVISOR PAINT documented in this encounter Plan of Treatment Upcoming Encounters Date Type Department Care Team (Late st Contact Info) Description 2024 12:20 PM CDT Appointment [facility] [address] [place] [address] Ruby Michel MD [address] [place] [address] 2024 1:00 PM CDT Appointment [facility] [address] [place] [phone] Ruby Michel MD [address] [place] [address] 10/09/2024 11:30 AM CDT Office Visit [facility] [address] [place] [address] Ruby Michel MD [address] [place] [phone] documented as of this encounter Visit Diagnoses Not on filedocumented in this encounter Care Teams Inspector Crystal Relationship Specialty Start Date End Date Nguyễn Orta MD [facility] [address] [place] [address] PCP - General Internal Medicine 11/14/22 Soheila Greene APRN HOME ENERGY RATER [address] [place] [address] [id number] [place] [address] Nurse Practitioner Neurological Surgery 04/26/22 Ruby Michel MD [address] [place] [address] Neurology 07/10/22 Ruby Michel MD [address] [place] [address] Assigned Neuroscience Provider 08/19/22 documented as of this encounter
--- OUTSIDE RECORDS SUMMARY | 2024-09-30 14:25 | XMS_ITS | Encounter Summary ---
Author Organization [facility] Address [address] [place] [address] Care Team Providers Care Roof Slater Name Role Phone Soheila Greene ROD TAILMAN Unavailable + [phone] Ruby Michel MD Unavailable [phone] Ruby Michel MD Unavailable + [phone] Nguyễn Orta MD Primary Care Provider Encounter Details Date Type Department Care Team (Late st Contact Info) Description 02/06/2023 MyC Medical Advice [facility] [address] [address] Violet Friedman CMA Social History Tobacco Use Types Packs/Day Years Used Date Smoking Tobacco: Never Smokeless Tobacco: Never PHQ-2 Answer Date Recorded PHQ-2 Score 0 05/01/2022 Adolescent Education Answer Date Record ed Getting School Help Needed Not on file 12/16 Comments Unknown Sex and Gender Information Value Date Recorded Sex Assigned at Not on file Legal Sex Female 4:21 AM BURLAPPER Gender Identity Not on file Sexual Orientation Not on file documented as of this encounter Plan of Treatment Upcoming Encounters Date Type Department Care Team (Late st Contact Info) Description 2024 12:20 PM CDT Appointment [facility] [address] [place] [address] Ruby Michel MD [address] [place] [address] 2024 1:00 PM CDT Appointment M [facility] [address] [place] [phone] Ruby Michel MD [address] [place] [address] 10/09/2024 11:30 AM CDT Office Visit M [facility] Neu[facility] [address] [place] [phone] Ruby Michel MD [address] [place] [address] documented as of this encounter Visit Diagnoses Not on filedocumented in this encounter Care Teams Roof Slater Relationship Specialty Start Date End Date Nguyễn Orta MD [facility] [address] [place] [address] PCP - General Internal Medicine 11/14/22 Soheila Greene APRN CNP [address] [place] [address] [id number] [place] [address] Nurse Practitioner Neurological Surgery 04/26/22 Ruby Michel MD [address] [place] [address] Neurology 07/10/22 Ruby Michel MD [address] [place] [address] Assigned Neuroscience Provider 08/19/22 documented as of this encounter
--- OUTSIDE RECORDS SUMMARY | 2024-09-30 14:25 | XMS_ITS | Encounter Summary ---
Author Organization [place] Address [address] [place] [address] Care Team Providers Care Heel Cutter Name Role Phone Soheila Greene ROD SPRAY MAKER Unavailable Ruby Michel MD Unavailable [phone] Ruby Michel MD Unavailable Nguyễn Orta MD Primary Care Provider Encounter Details Date Type Department Care Team (Late st Contact Info) Description 05/22/2023 MyC Medical Advice [facility] [address] [place] [phone] Ruby Michel MD [address] [place] [address] Social History Tobacco Use Types Packs/Day Years Used Date Smoking Tobacco: Never Smokeless Tobacco: Never PHQ-2 Answer Date Recorded PHQ-2 Score 0 05/01/2022 Adolescent Education Answer Date Record ed Getting School Help Needed Not on file 12/16 Comments Unknown Sex and Gender Information Value Date Recorded Sex Assigned at Not on file Legal Sex Female 4:21 AM INSTRUCTIONAL SUPPORT TECHNICIAN Gender Identity Not on file Sexual Orientation Not on file documented as of this encounter Plan of Treatment Upcoming Encounters Date Type Department Care Team (Late st Contact Info) Description 2024 12:20 PM CDT Appointment [facility] Imaging [address] [place] [address] Ruby Michel MD [address] [place] [address] 2024 1:00 PM CDT Appointment [facility] Imaging [address] [place] [phone] Ruby Michel MD [address] [place] [address] 10/09/2024 11:30 AM CDT Office Visit [facility] [address] [place] [address] Ruby Michel MD [address] [place] [address] documented as of this encounter Visit Diagnoses Not on filedocumented in this encounter Care Teams Heel Cutter Relationship Specialty Start Date End Date Nguyễn Orta MD [facility] [address] [place] [address] PCP - General Internal Medicine 11/14/22 Soheila Greene APRN CNP [address] [place] [address] [id number] [place] [address] Nurse Practitioner Neurological Surgery 04/26/22 Ruby Michel MD [address] [place] [address] Neurology 07/10/22 Ruby Michel MD [address] [place] [address] Assigned Neuroscience Provider 08/19/22 documented as of this encounter
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
--- OUTSIDE RECORDS SUMMARY | 2024-09-30 14:25 | XMS_ITS | Encounter Summary ---
Author Organization [employer] Address [address] [place] [address] Care Team Providers Care New Car Inspector Name Role Phone Nguyen Rosado MD Primary Care Provide r Encounter Details Date Type Department Care Team (Late st Contact Info) Description 07/06/2016 Correspondence [facility] Radiology [address] [place] [address] [phone] Radiology, Provider MRI SAFETY SHEET AND COMPATIBILITY FORM Social History Tobacco Use Types Packs/Day Years Used Date Smoking Tobacco: Never Smokeless Tobacco: Never Alcohol Use Standard Drinks/Week Comments Yes 0 (1 standard drink = 0.6 oz pure alcohol) 2 glasses of wine on the weekends Comments No Sex and Gender Information Value [...] documented as of this encounter Care Teams New Car Inspector Relationship Specialty Start Date End Date Nguyen Rosado MD [address] [place] [address] PCP - General Internal Medicine 03/17/20 documented as of this encounter
--- OUTSIDE RECORDS SUMMARY | 2024-09-30 14:25 | XMS_ITS | Encounter Summary ---
Author Organization [place] Address [address] [place] [address]. [place] [address] Care Team Providers Care Nanofabrication Specialist Name Role Phone No Ref-Primary, Physician Primary Care Provider Soheila Greene APRN COATER BRAKE LININGS Unavailable [phone] Ruby Michel MD Unavailable [phone] Ruby Michel MD Unavailable Nguyễn Orta MD Primary Care Provider Encounter Details Date Type Department Care Team (Late st Contact Info) Description 11/07/2022 Ophth Exam [facility] Services - Eye Care Service Line [address] [place] [phone] Joseph Pelletier MD [address] [place] [address] Social History Tobacco Use Types Packs/Day Years Used Date Smoking Tobacco: Never Smokeless Tobacco: Never PHQ-2 Answer Date Recorded PHQ-2 Score 0 05/01/2022 Comments Unknown Sex and Gender Information Value Date Recorded Sex Assigned at Not on file Legal Sex Female 4:21 AM DRAIN CLEANER Gender Identity Not on file Sexual Orientation [...] CDT Appointment [facility] Imaging [address] [place] [address] Ruby Michel MD [address] [place] [address] 2024 1:00 PM CDT Appointment [facility] Imaging [address] [place] [address] Ruby Michel MD [address] [place] [address] 10/09/2024 11:30 AM CDT Office Visit [facility] Neurology Clinic [facility] [address] [place] [address] Ruby Michel MD [address] [place] [address] documented as of this encounter Visit Diagnoses Not on filedocumented in this encounter Care Teams Nanofabrication Specialist Relationship Specialty Start Date End Date No Ref-Primary, Physician PCP - General 04/04/22 11/13/22 Nguyễn Orta MD [facility] [address] [place] [address] PCP - General Internal Medicine 11/14/22 Soheila Greene APRN CNP [address] [place] [address] [id number] [place], [place] [address] Nurse Practitioner Neurological Surgery 04/26/22 Ruby Michel MD [address] [place] [address] Neurology 07/10/22 Ruby Michel MD [address] [place] [address] Assigned Neuroscience Provider 08/19/22 documented as of this encounter
--- OUTSIDE RECORDS SUMMARY | 2024-09-30 14:25 | XMS_ITS | Encounter Summary ---
Author Organization [place] Address [address] [place] [address] Care Team Providers Care Diesel Roller Operator Name Role Phone Soheila Greene ROD AIRCRAFT RIGGING AND CONTROLS MECHANIC Unavailable Ruby Michel MD Unavailable [phone] Ruby Mihcel MD Unavailable [phone] Nguyễn Orta MD Primary Care Provider Reason for Visit * Reason Onset Date Comments Letter for School/Work 08/25/2024 Encounter Details Date Type Department Care Team (Late st Contact Info) Description 08/25/2024 Telephone [facility] Neurology Clinic [address] [address] Ruby Michel MD [address] [place] [address] Letter for School/Work Social History Tobacco Use Types Packs/Day Years Used Date Smoking Tobacco: Never Smokeless Tobacco: Never PHQ-2 Answer Date Recorded PHQ-2 Score 0 05/26/2024 Adolescent Education Answer Date Record ed Getting School Help Needed Not on file 12/16 Comments Unknown Sex and Gender Information Value Date Recorded Sex Assigned at Not on file Legal Sex Female 4:21 AM MANGLE CATCHER Gender Identity Not on file Sexual Orientation Not on file documented as of this encounter Miscellaneous Notes * Telephone Encounter - Oumou David MA - 08/28/2024 2:06 PM CDT Returned call to the pt and informed her that the letter is ready for hop picker at the [place] location. Per pt will hop picker letter in clinic next Sunday. AFRICA Stahl on 08/28/2024 at 2:07 PM * Telephone Encounter - Ruby Michel MD - 08/28/2024 12:54 PM CDT Done and placed in red folder Ruby Michel MD on 08/28/2024 at 12:54 PM * Telephone Encounter - Ruby Michel MD - 08/26/2024 1:40 PM CDT Yes - I will write tomorrow when in [place] Ruby Michel MD on 08/26/2024 at 1:40 PM * Telephone Encounter - Oumou David MA - 08/26/2024 8:36 AM CDT Will you write a letter for the pt? Please advise. Thank you. AFRICA Stahl on 08/26/2024 at 8:37 AM * Telephone Encounter - Nadine Canas - 08/25/2024 4:30 PM CDT [facility] Phone Message May a detailed message be left on voicemail: no Reason for Call: Form or Letter Type or form/letter needing completion: Letter to help her with caring for her sonFlory Jackson is requesting a letter that states: -How long patient has been under providers care -That she's currently being treated for MS -Providers signature Patient will hop picker once completed. Provider: Ruby Michel form needed: NA Once completed: Patient will hop picker at front desk admin. Action Taken: Other: Neurology Travel Screening: Not Applicable documented in this encounter Plan of Treatment Upcoming Encounters Date Type Department Care Team (Late st Contact Info) Description 2024 12:20 PM CDT Appointment [facility] Imaging [address] [place] [phone] Ruby Michel MD [address] [place] [address] 2024 1:00 PM CDT Appointment [facility] Imaging [address] [place] [phone] Ruby Michel MD [address] [place] [address] 10/09/2024 11:30 AM CDT Office Visit [facility] Neurology Clinic [facility] [address] [place] [address] Ruby Michel MD [address] [place] [address] documented as of this encounter Visit Diagnoses Not on filedocumented in this encounter Care Teams Diesel Roller Operator Relationship Specialty Start Date End Date Nguyễn Orta MD [facility] [address] [place] [address] PCP - General Internal Medicine 11/14/22 Soheila Greene APRN AIRCRAFT RIGGING AND CONTROLS MECHANIC [address] [place] [address] [id number] [place] [address] Nurse Practitioner Neurological Surgery 04/26/22 Ruby Michel MD [address] [place] [address] Neurology 07/10/22 Ruby Michel MD [address] [place] [address] Assigned Neuroscience Provider 08/19/22 documented as of this encounter
--- OUTSIDE RECORDS SUMMARY | 2024-09-30 14:25 | XMS_ITS | Encounter Summary ---
Author Organization [employer] Address [address] [place] [address] Care Team Providers Care Rn Cardiology Name Role Phone Nguyen Rosado MD Primary Care Provide r Encounter Details Date Type Department Care Team (Late st Contact Info) Description 01/17/[address] [facility] Radiology [address] [place] [address] [phone] Radiology, Provider MRI SAFETY SHEET AND COMPATIBILITY [...] documented as of this encounter Care Teams Rn Cardiology Relationship Specialty Start Date End Date Nguyen Rosado MD [address] [place] [address] PCP - General Internal Medicine 03/17/20 documented as of this encounter
--- OUTSIDE RECORDS SUMMARY | 2024-09-30 14:25 | XMS_ITS | Encounter Summary ---
Author Organization [place] Address [address] [place] [address] Care Team Providers Care Windows Software Engineer Name Role Phone Soheila Greene ROD DREDGE LEVER OPERATOR Unavailable Ruby Michel MD Unavailable [phone] Ruby Michel MD Unavailable [phone] Nguyễn Orta MD Primary Care Provider Reason for Visit * Reason Onset Date Comments Patient Request 09/05/2024 Call back Encounter Details Date Type Department Care Team (Late st Contact Info) Description 09/05/2024 Telephone [facility] [address] [address] Ruby Michel MD [address] [place] [address] Patient Request (Call back) Social History Tobacco Use Types Packs/Day Years Used Date Smoking Tobacco: Never Smokeless Tobacco: Never PHQ-2 Answer Date Recorded PHQ-2 Score 0 05/26/2024 Adolescent Education Answer Date Record ed Getting School Help Needed Not on file 12/16 Comments Unknown Sex and Gender Information Value Date Recorded Sex Assigned at Not on file Legal Sex Female 4:21 AM STRATEGIC ACCOUNT DIRECTOR Gender Identity Not on file Sexual Orientation Not on file documented as of this encounter Miscellaneous Notes * Telephone Encounter - Meena Godinez RN - 09/05/2024 10:03 AM CDT Returned call to patient who has concerns with spouse and daughters. Patient talked about MS flare up and how stress makes her symptoms worse. Patient mentioned feeling dehydrated, nurse recommended staying hydrated with water and fluids. Patient denies any specific neurological concerns at this time. Confirmed with patient appointment with Dr. Michel for next month. Meena Savage RN [facility] Neurology * Telephone Encounter - Christina Mishra - 09/05/2024 8:14 AM CDT [facility] Call Center Phone Message May a detailed message be left on voicemail: yes Reason for Call: Other: Pt is calling and stating that she would like a call back from the nurse orDr.Anand to discuss what is going on in her life with her and she is having flare ups of MS due to stress. Pt is stating that do not reach out to anyone that is on her JOSE [facility]RIQUE list. Action Taken: Message routed to: [facility] Neurology Travel Screening: Not Applicable Date of Service: documented in this encounter Plan of Treatment Upcoming Encounters Date Type Department Care Team (Late st Contact Info) Description 2024 12:20 PM CDT Appointment [facility] Imaging [facility] [address] Ruby Michel MD [address] [place] [address] 2024 1:00 PM CDT Appointment [facility] Imaging [address] [place] [phone] Ruby Michel MD [address] [place] [address] 10/09/2024 11:30 AM CDT Office Visit [facility] Neurology Clinic [facility] [address] [place] [address] Ruby Michel MD [address] [place] [address] documented as of this encounter Visit Diagnoses Not on filedocumented in this encounter Care Teams Windows Software Engineer Relationship Specialty Start Date End Date Nguyễn Orta MD [facility] [address] [place] [address] PCP - General Internal Medicine 11/14/22 Soheila Greene APRN DREDGE LEVER OPERATOR [address] [place] [address] [id number] [place] [address] Nurse Practitioner Neurological Surgery 04/26/22 Ruby Michel MD [address] [place] [address] Neurology 07/10/22 Ruby Michel MD [address] [place] [address] Assigned Neuroscience Provider 08/19/22 documented as of this encounter
--- OUTSIDE RECORDS SUMMARY | 2024-09-30 14:25 | XMS_ITS | Encounter Summary ---
Author Organization [place] Address [address] [place] [address]. [place] [address] Care Team Providers Care Productivity Engineer Name Role Phone Soheila Greene ROD AIRCRAFT STRUCTURAL REPAIRER Unavailable [phone] Ruby Michel MD Unavailable [phone] Ruby Michel MD Unavailable Nguyễn Orta MD Primary Care Provider Encounter Details Date Type Department Care Team (Late st Contact Info) Description 08/27/2023 MyC Medical Advice [facility] Neurology Clinic [address] [address] Ruby Michel MD [address] [place] [address] Social History Tobacco Use Types Packs/Day Years Used Date Smoking Tobacco: Never Smokeless Tobacco: Never PHQ-2 Answer Date Recorded PHQ-2 Score 0 05/01/2022 Adolescent Education Answer Date Record ed Getting School Help Needed Not on file 12/16 Comments Unknown Sex and Gender Information Value Date Recorded Sex Assigned at Not on file Legal Sex Female 4:21 AM DIRECTOR OF CURRICULUM AND INSTRUCTION Gender Identity Not on file Sexual Orientation [...] dosing clarification and goal of communication. Franklin Benitez, RN, BSN [facility] Neurology documented in this encounter Plan of Treatment Upcoming Encounters Date Type Department Care Team (Late st Contact Info) Description 2024 12:20 PM CDT Appointment [facility] Imaging [address] [place] [phone] Ruby Micehl MD [address] [place] [address] 2024 1:00 PM CDT Appointment [facility] Imaging [address] [place] [phone] Ruby Michel MD [address] [place] [address] 10/09/2024 11:30 AM CDT Office Visit [facility] Neurology Clinic [facility] [address] [place] [address] Ruby [place] MD [address] [place] [address] documented as of this encounter Visit Diagnoses Not on filedocumented in this encounter Care Teams Productivity Engineer Relationship Specialty Start Date End Date Nguyễn Orta MD [facility] [address] [place] [address] PCP - General Internal Medicine 11/14/22 Soheila Greene APRN AIRCRAFT STRUCTURAL REPAIRER [address] [facility] [id number] [place] [address] Nurse Practitioner Neurological Surgery 04/26/22 Ruby Michel MD [address] [place], [place] [phone] Neurology 07/10/22 Ruby Michel MD [address] [place], [place] [address] Assigned Neuroscience Provider 08/19/22 documented as of this encounter
--- OUTSIDE RECORDS SUMMARY | 2024-09-30 14:25 | XMS_ITS | Encounter Summary ---
Author Organization [place] Address [address] [place] [address] Care Team Providers Care Coal Picker Name Role Phone Soheila Greene ROD PHARMACY TECHNOLOGIST Unavailable Rbuy Michel MD Unavailable [phone] Ruby Michel MD Unavailable [phone] Nguyễn Orta MD Primary Care Provider Reason for Visit * Reason Onset Date Comments MRI Order 09/24/2024 Encounter Details Date Type Department Care Team (Late st Contact Info) Description 09/24/2024 [facility] [address] [address] Ruby Mihcel MD [address] [place] [address] MRI Order Social History Tobacco Use Types Packs/Day Years Used Date Smoking Tobacco: Never Smokeless Tobacco: Never PHQ-2 Answer Date Recorded PHQ-2 Score 0 05/26/2024 Adolescent Education Answer Date Record ed Getting School Help Needed Not on file 12/16 Comments Unknown Sex and Gender Information Value Date Recorded Sex Assigned at Not on file Legal Sex Female 4:21 AM CONTACT ACID PLANT OPERATOR HELPER Gender Identity Not on file Sexual Orientation Not on file documented as of this encounter Miscellaneous Notes * Telephone Encounter - Stacie Rea RN - 09/24/2024 1:29 PM CDT RN contacted imaging department to confirm that MRI orders are in place, patient should call to schedule. Returned call to patient and provided phone number of [phone] for imaging department, relayed that per imaging there will be openings to complete MRI prior to her appointment with Dr. Michel 10/09. Patient will return call to clinic if she has any further issues getting scheduled. Amanda Saldaña RN, BSN [facility] Neurology * Telephone Encounter - Dorothy Manzo - 09/24/2024 11:57 AM CDT [facility] Call Center Phone Message May a detailed message be left on voicemail: yes Reason for Call: Other: Patient is requesting that new MRI orders be placed. The current orders arenot working/allowing her to schedule. Patient can be reached at [phone]. Action Taken: Message routed to: Other: [facility] neurology Travel Screening: Not Applicable documented in this encounter Plan of Treatment Upcoming Encounters Date Type Department Care Team (Late st Contact Info) Description 2024 12:20 PM CDT Appointment [facility] [place] [address] Ruby Michel MD [address] [place] [address] 2024 1:00 PM CDT Appointment [facility] [address] [place] [address] Ruby Mihcel MD [address] [place] [address] 10/09/2024 11:30 AM CDT Office Visit [facility]rology Clinic [facility] [address] [place] [phone] Ruby Michel MD [address] [place] [address] documented as of this encounter Visit Diagnoses Not on filedocumented in this encounter Care Teams Coal Picker Relationship Specialty Start Date End Date Nguyễn Orta MD [facility] [address] [place] [address] PCP - General Internal Medicine 11/14/22 Soheila Greene APRN CNP [address] [place] [address] [id number] [place] [address] Nurse Practitioner Neurological Surgery 04/26/22 Ruby Michel MD [address] [place] [address] Neurology 07/10/22 Ruby Michel MD [address] [place] [address] Assigned Neuroscience Provider 08/19/22 documented as of this encounter
--- OUTSIDE RECORDS SUMMARY | 2024-09-30 14:25 | XMS_ITS | Encounter Summary ---
Author Organization [facility] Address [address] [place] [address] Care Team Providers Care Engineering Clerk Name Role Phone Nguyen Rosado MD Primary Care Provide r Encounter Details Date Type Department Care Team (Late st Contact Info) Description 07/16/2018 Correspondence [facility] Radiology [address] [place] [id number] Radiology, Provider MRI SAFETY SHEET AND COMPATIBILITY [...] documented as of this encounter Care Teams Engineering Clerk Relationship Specialty Start Date End Date Nguyen Rosado MD [address] [place] [address] PCP - General Internal Medicine 03/17/20 documented as of this encounter
--- OUTSIDE RECORDS SUMMARY | 2024-09-30 14:25 | XMS_ITS | Clinical Summary ---
Author Organization [facility] Address [address] [place] [address] Care Team Providers Care Cook Dinner Name Role Phone None Unavailable Unavailable RennyNkiia NARCOTICS AGENT Unavailable [phone] Anna Nguyen Martins NARCOTICS AGENT Unavailable [phone] Jose David Ibanez Michael DO Unavailable [phone] Nguyễn Orta MD Primary Care Provider [phone] Allergies Active Allergy Reactions Criticality Noted Date [...] High 11/07/2011 Methylprednisolone Anaphylaxis High 06/20/2016 Medications traMADol (ULTRAM) 50 mg tabletIndicati ons:Trigeminal neuralgia of right side of face Take 1 tablet by mouth every 6 hours. 30 tablet 8 Active Cholecalcifero l, Vitamin D3, 2,000 unit tablet Take 4,000 Units by mouth once daily. 8 Active levothyroxine (SYNTHROID) 75 mcg tabletIndicati ons:Hypothyroi dism (acquired) TAKE 1 TABLET BY MOUTH DAILY 60 tablet 0 Active medication order composer Pt states she has been started on Baclofen by her neurologist 0 0 Active amLODIPine (NORVASC) 10 mg tablet Take 10 mg by mouth once daily. On hold 2 Active hydroCHLOROthi azide 12.5 mg tablet TAKE 1 TABLET BY MOUTH EVERY MORNING FOR HIGH BLOOD PRESSURE 3 Active ondansetron (ZOFRAN) 4 mg tablet Take 4-8 mg by mouth. 3 Active albuterol HFA (PRO-AIR; VENTOLIN; PROVENTIL) 90 mcg/actuation inhaler Inhale 1-2 Puffs by mouth. Active fluticasone propionate (FLOVENT) 110 mcg/Actuation inhaler Inhale 1 Puff by mouth two times daily. 4 Active pregabalin (LYRICA) 50 mg capsule Take 50 mg by mouth three times daily. 4 Active gabapentin (NEURONTIN) 100 mg capsule Take 100 mg by mouth. 4 Active LORazepam 0.5 mg tabIndications :Anxiety Take 1 Tablet (0.5 mg) by mouth 2 times daily if needed for Anxiety. 60 Tablet 1 5 Active PARoxetine 20 mg tabletIndicati ons:PTSD (post-traumati c stress disorder),Anxi ety 60 mg at bedtime (40 mg + 20 mg) 30 Tablet 2 5 Active PARoxetine 40 mg tabletIndicati ons:Anxiety 60 mg at bedtime (40 mg + 20 mg) 30 Tablet 2 5 Active carBAMazepine (TEGRETOL XR) 100 mg Extended-Relea se tabletIndicati ons:Anxiety,Mo od disorder Take 100 mg three times daily as needed 90 Tablet 2 4 025 Discontinu ed(Other - add note to specify (E-cancel not sent)) QUEtiapine (SEROQUEL) 50 mg tabletIndicati ons:PTSD (post-traumati c stress disorder),Mood disorder 150 mg to 200 mg at bedtime 120 Tablet 1 5 025 Discontinu ed(Other - add note to specify (E-cancel not sent)) PARoxetine (PAXIL) 40 mg tabletIndicati ons:Anxiety 60 mg at bedtime (40 mg + 20 mg) 30 Tablet 2 5 025 Discontinu ed(Reorder (E-cancel not sent)) PARoxetine 20 mg tabletIndicati ons:PTSD (post-traumati c stress disorder),Anxi ety 60 mg at bedtime (40 mg + 20 mg) 30 Tablet 2 5 025 Discontinu ed(Reorder (E-cancel not sent)) LORazepam 0.5 mg tabIndications :Anxiety Take 1 Tablet (0.5 mg) by mouth 2 times daily if needed for Anxiety. 20 Tablet 1 5 025 Discontinu ed(Reorder (E-cancel not sent)) PARoxetine 20 mg tabletIndicati ons:PTSD (post-traumati c stress disorder),Anxi ety 60 mg at bedtime (40 mg + 20 mg) 30 Tablet 2 5 025 Discontinu ed(Reorder (E-cancel not sent)) PARoxetine 40 mg tabletIndicati ons:Anxiety 60 mg at bedtime (40 mg + 20 mg) 30 Tablet 2 5 025 Discontinu ed(Reorder (E-cancel not sent)) LORazepam 0.5 mg tabIndications :Anxiety Take 1 Tablet (0.5 mg) by mouth 2 times daily if needed for Anxiety. 20 Tablet 1 5 025 Discontinu ed(Reorder (E-cancel not sent)) Active Problems Problem Noted [...] also had chemo and radiation, age 25. (1991) States neg BRCA 1 and 2 done years ago. Premature menopause 11/07/2011 Overview (07/26/2018): Overview: Age 36. Family history of ovarian cancer 11/07/2011 Overview (07/26/2018): Overview: Sister at 53 and paternal grandmother as well as several paternal cousins. Resolved Problems Problem Noted Date Diagnosed Date Resolved Date History of bipolar disorder 12/16/2014 07/26/2018 Encounters Date Type Department Care Team Description 09/22/2024 9:15 AM CDT Phone Office Visit [facility] [address] [place] [address] Nguyen Castillo, NARCOTICS AGENT Individual Therapy 09/17/2024 9:15 AM CDT Phone Office Visit [facility] [address] [place] [address] Jose David Ibanez, Phone Visit ([place]iatry - [place]); Medication Management 09/17/2024 Telephone [facility] [address] [place] [address] Jose David Ibanez, Letter (Pt will tow picker) 09/11/2024 12:00 PM CDT Phone Office Visit [facility] [address] [place] [address] Nguyen Castillo, NARCOTICS AGENT Individual Therapy 09/05/2024 Telephone [facility] [address] [address] Nguyen Castillo, NARCOTICS AGENT Questions 09/05/2024 Telephone [facility] [address] [address] Jose David Ibanez, Questions 09/03/2024 8:45 AM CDT Phone Office Visit [facility] [address] [address] Jose David Ibanez, Telehealth (Psychiatry - [place]); Medication Management 09/01/2024 9:15 AM CDT Phone Office Visit [facility] [address] [address] Nguyen Castillo, NARCOTICS AGENT Individual Therapy 08/19/2024 12:00 PM CDT Phone Office Visit [facility] [address] [address] Nguyen Castillo, NARCOTICS AGENT Individual Therapy 07/28/2024 10:15 AM CDT Phone Office Visit [facility] [address] [address] Nguyen Castillo, NARCOTICS AGENT Individual Therapy 07/14/2024 9:15 AM CDT Phone Office Visit [facility] [address] [address] Jose David Ibanez, Medication Management; Phone Visit (Psychiatry - [place] ) 07/07/2024 9:15 AM CDT Phone Office Visit [facility] [address] [address] Nguyen Castillo, NARCOTICS AGENT [facility] Immunizations Immunization Administration Dates Next Due Influenza A (H1N1), [...] Not Answered Alcohol Use Standard Drinks/Week Comments Yes 0 (1 standard drink = 0.6 oz pur e alcohol) rare PHQ-2 Answer Date Recorded PHQ-2 TOTAL SCORE 0 09/17/2024 Comments No Sex and Gender Information Value Date Recorded Sex Assigned at Not on file Legal Sex Female 5:27 AM FORMULA WEIGHER Gender Identity Not on file Sexual Orientation Not on file Obstetrics History Para Term AB IAB SAB Ectopic Multiple Livin g Live Births 2 2 1 1 2 2 Date Outcome GA Total Labor Labor/2nd/3rd Weight Sex Type Anes PTL Deisi A1 A5 Name Clin 1986 Term 2.27 kg (5 lb) F C-Sec tion N Living 1998 0.91 kg (2 lb) M C-Sec tion Y Living Last Filed Vital Signs Vital Sign Reading Time Taken Comments Blood Pressure 149/100 2021 11:11 AM CDT Pulse 100 2021 11:11 AM CDT Temperature 36.5 C (97.7 F) 03/28/2021 9:12 AM FORMULA WEIGHER Respiratory Rate 18 03/28/2021 9:12 AM FORMULA WEIGHER Oxygen Saturation 98% 07/26/2018 11: 40 AM CDT Inhaled Oxygen Concentration - - Weight 45.8 kg (100 lb 14.4 oz) 022 11:11 AM CDT Height 156.2 cm (5' 1.5) 2021 11 :11 AM CDT Body Mass Index 18.76 2021 11:11 AM CDT Plan of Treatment Upcoming Encounters Date Type Department Care Team (Late st Contact Info) Description 10/01/2024 11:15 AM CDT Phone Office Visit [facility] [address] [facility] [address] [place], [place] [phone] Jose David Ibanez, DO [address] [place] [address] 10/07/2024 2:45 PM CDT Phone Office Visit [facility] [address] [address] Yumiko Castilloah Lakshmi, [facility] [address] [address] 10/14/2024 8:15 AM CDT Office Visit [facility] [address] [address] Jose David Ibanez, DO [address] [place] [address] 10/21/2024 1:45 PM CDT Phone Office Visit [facility] [address] [address] Nguyen Castillo, [facility] [address] [address] 10/29/2024 11:15 AM CDT Phone Office Visit [facility] [address] [address] Jose David Ibanez, DO [address] [place] [address] 11/12/2024 11:15 AM CDT Phone Office Visit [facility] [address] [address] Jose David Ibanez, DO [address] [place] [address] Health Maintenance Due Date Last Done Comments HIV for age 15-65 10/03/1978 Zoster (shingles) series for age 50+ (1 of 2) 10/03/2013 Pap test for age 21-65 11/07/2015 3 ([facility] Pneumococcal series for age 50+ (2 of 2 - PPSV23) 12/17/2015 12/16/2014 Mammogram for age 45-75 03/10/2020 03/10/2019 Fecal testing non-DNA (FIT,FOBT,iFOBT) for age 45-75 05/26/2020 05/27/2019 BMI (ht and wt on same day) for age 18+ 2022 2021, 04/15/2019, 02/11/2019, Additional history exists RSV vaccine for adults or (1 - Risk 60-74 years 1-dose series) 2023 COVID-19 vaccine series ( - season) 2023 10/21/2020, 08/09/2020 Lipids for age 45-75 03/10/2024 03/10/2019, 07/02/2013, 06/18/2008 Influenza Vaccine (#1) 2024 9, 06/12/2018, 12/16/2014, Additional history exists Tetanus booster 12/16/2024 12/16/2014, 03/25/2013 Depression screening for age 12+ 09/17/2025 09/17/2024, 09/03/2024, 06/04/2024, Additional history exists Hepatitis C screening for age 18-79 Completed 03/10/2019 Hepatitis B series for 19+ Aged Out N o longer eligible based on patient's age to complete this topic Procedures Procedure Name Priority Date/Time Associated Diagnosis Comments OCCULT BLOOD IFOBT STOOL Routine 05/27/2019 4:47 PM FORMULA WEIGHER Screening for colorectal cancer XR MAMMO NICOLETTE BILAT SCREEN Routine 03/10/2019 2:43 PM FORMULA WEIGHER Visit for screening mammogram ANTI HCV Routine 03/10/2019 11:54 AM FORMULA WEIGHER Need for hepatitis C screening test LIPID PANEL W REFLEX MEASURED LDL Routine 03/10/2019 11:54 AM FORMULA WEIGHER Screening for lipid disorders from Last 3 Months or Most Recently Relevant to Health Maintenance Results * OCCULT BLOOD IFOBT STOOL (05/27/2019 4:47 PM FORMULA WEIGHER) STOOL BLOOD ,IFOBT Negative Negative 05/30/2019 10:26 AM FORMULA WEIGHER [facility] Stool STOOL SPECIMEN / Unknown Non-Blood / Unknown 05/27/2019 4:47 PM FORMULA WEIGHER 05/27/2019 4:47 PM FORMULA WEIGHER us Alisia Velez MD LABORATORY Final Re sult [facility] [address] [place] [address], [place] [phone] * XR MAMMO NICOLETTE BILAT SCREEN (03/10/2019 2:43 PM FORMULA WEIGHER) Anatomical Region Laterality Modality BREASTS, Breast Left, Breast Right Bilateral Mammography Impressions 03/11/2019 2:16 PM FORMULA WEIGHER There is no radiographic evidence for malignancy. Recommend annual mammograms. A lay language report of this examination will be provided to the patient. MAMMOGRAM ASSESSMENT: ACR 1 Negative Narrative 03/11/2019 2:16 PM FORMULA WEIGHER XR MAMMO NICOLETTE BILAT SCREEN [[id number]] CLINICAL HISTORY: This is an asymptomatic 53 y.o. patient. INDICATION FOR EXAM: Mammogram Screening. TECHNIQUE: CC & MLO views were obtained. This digital study was evaluated with the assistance of Computer-Aided Detection. Breast Tomosynthesis was used in interpretation. COMPARISON FILM: Yes 09/12/13 QUEENIE MCDONNELL FINDINGS: Mammographically, the breast tissue is heterogeneously dense, which could obscure detection of small masses. There are no dominant masses, suspicious micro calcifications or areas of architectural distortion. us Alisia Velez MD MAMMO Final Re sult * (ABNORMAL) LIPID PANEL W REFLEX MEASURED LDL [[id number]] (03/10/2019 11:54 AM FORMULA WEIGHER) CHOLESTEROL,TOTAL 300(H) 100 - 199 mg/dL 03/11/2019 12:05 AM FORMULA WEIGHER [facility] TRAL LABORATORY TRIGLYCERIDES 54 <150 mg/dL 03/11/2019 12:05 AM FORMULA WEIGHER [facility] TRAL LABORATORY HDL CHOLESTEROL 100 >40 mg/dL 9 12:05 AM FORMULA WEIGHER [facility] TRAL LABORATORY NON-HDL CHOLESTEROL 200(H) <145 mg/dl 03/11/2019 12:05 AM [facility] TRAL LABORATORY CHOL/HDL RATIO 3.00 <4.50 03/11/2019 12:05 AM FORMULA WEIGHER [facility] TRAL LABORATORY LDL CHOLESTEROL 189(H) <=130 mg/dL 03/11/2019 12:05 AM [facility] TRA LABORATORY PROVIDER ORDERED STATUS RANDOM 03/11/2019 12:05 AM FORMULA WEIGHER [facility] TRAL LABORATORY Blood BLOOD SPECIMEN / Unknown Venipuncture / Unknown 03/10/2019 11:54 AM FORMULA WEIGHER 03/10/2019 11:54 AM FORMULA WEIGHER us Alisia Velez MD CHEMISTRY Final Re sult Performing Organization Address City/[facility]/ZIP Co de Phone Number [facility] [address] [place] [address], * ANTI HCV (03/10/2019 11:54 AM FORMULA WEIGHER) HEPATITIS C ANTIBODY Non-React vera Non-React vera 03/10/2019 11:51 PM FORMULA WEIGHER [facility] TRAL LABORATORY Comment:Antibodies to HCV no t detected; does not exclude the possibility of exposure to HCV. Blood BLOOD SPECIMEN / Unknown Venipuncture / Unknown 03/10/2019 11:54 AM FORMULA WEIGHER 03/10/2019 11:54 AM FORMULA WEIGHER us Alisia Velez MD SEND OUTS Final Re sult [facility] [address] [place] [address], from Last 3 Months or Most Recently Relevant to Health Maintenance Insurance MEDICARE PART A HB ONLY [facility] MR Advance Directives * Full Code (Latest Code Status on File) Date Activated Date Inactivated Comments 06/20/2016 3:13 PM 06/21/2016 5:44 PM Question Answer Comments Code Status Discussion: Discussed Care Teams Cook Dinner Relationship Specialty Start Date End Date Nguyễn Orta MD [address] [place] [address] PCP - General Internal Medicine 11/08/22 None . 06/16/08 Nikia Lawson NARCOTICS AGENT [address] [place] [address] Enterprise Architect 10/29/17 Nguyen Castillo LICSW [address] [place] [address] Therapist Enterprise Architect 08/25/19 Jose David Ibanez DO [address] [address] Psychiatry 08/16/22
--- OUTSIDE RECORDS SUMMARY | 2024-09-30 14:25 | XMS_ITS | Encounter Summary ---
Author Organization [facility] Address [address] [place] [address] Care Team Providers Care Collar Stay Fuser Tender Name Role Phone Soheila Greene ROD VISUAL ARTS TEACHER Unavailable Ruby Michel MD Unavailable [phone] Ruby Michel MD Unavailable [phone] Nguyễn Orta MD Primary Care Provider Reason for Visit * Reason Onset Date Comments Call Back 08/19/2024 Encounter Details Date Type Department Care Team (Late st Contact Info) Description 08/19/2024 Telephone [facility] Multiple Sclerosis [facility] [address] [address] Ruby Michel MD [address] [place] [address] Call Back Social History Tobacco Use Types Packs/Day Years Used Date Smoking Tobacco: Never Smokeless Tobacco: Never PHQ-2 Answer Date Recorded PHQ-2 Score 0 05/26/2024 Adolescent Education Answer Date Record ed Getting School Help Needed Not on file 12/16 Comments Unknown Sex and Gender Information Value Date Recorded Sex Assigned at Not on file Legal Sex Female 4:21 AM CARGO TRIMMER Gender Identity Not on file Sexual Orientation Not on file documented as of this encounter Miscellaneous Notes * Telephone Encounter - Franklin Benitez RN - 08/21/2024 4:23 PM CDT RN returned call to patient, she is agreeable to complete MRIs. Provided scheduling number. Franklin Savage RN, OPAL [facility] Neurology * Telephone Encounter - Ruby Michel MD - 08/21/2024 3:09 PM CDT Before resuming ocrevus I recommend she update her MRI This is currently overdue - orders are in system (placed back in December 2023) Ruby Michel MD on 08/21/2024 at 3:09 PM * Telephone Encounter - Franklin Benitez RN - 08/21/2024 10:36 AM CDT RN returned call to [place]. She had recent symptom exacerbation with influenza A illness, Symptoms included increased fatigue and more difficulty with gait and balance, worsened left sided weakness. Severity of symptoms has improved since she has recovered from influenza A. She is interested in restarting ocrevus through [facility]. She was on IVIG and Ocrevus previously, please advise if you feel this is recommended? Next appt scheduled 10/09. Franklin Savage RN, BSN [facility] Neurology * Telephone Encounter - Dorothy Manzo - 08/19/2024 9:31 AM CDT [facility] Call Center Phone Message May a detailed message be left on voicemail: yes Reason for Call: Other: Patient would eric to discuss IV medication for MS treatment. Patient can bereached at [phone] Action Taken: Message routed to: Other: [facility] Travel Screening: Not Applicable documented in this encounter Plan of Treatment Upcoming Encounters Date Type Department Care Team (Late st Contact Info) Description 2024 12:[address] [facility] [address] [place] [address] Ruby Michel MD [address] [place] [address] 2024 1:[address] [facility] [address] [place] [address] Ruby Michel MD [address] [place] [address] 10/09/2024 11:30 AM CDT Office Visit [facility] Neurology Clinic [facility] [address] [place] [address] Ruby Michel MD [address] [place] [address] documented as of this encounter Visit Diagnoses Diagnosis MS (multiple sclerosis) (H)- Primary Multiple sclerosis documented in this encounter Care Teams Collar Stay Fuser Tender Relationship Specialty Start Date End Date Nguyễn Orta MD [facility] [address] [place] [address] PCP - General Internal Medicine 11/14/22 Soheila Greene APRN VISUAL ARTS TEACHER [address] [place] [address] [id number] [place] [address] Nurse Practitioner Neurological Surgery 04/26/22 Ruby Michel MD [address] [place] [address] Neurology 07/10/22 Ruby Michel MD [address] [place] [address] Assigned Neuroscience Provider 08/19/22 documented as of this encounter
--- OUTSIDE RECORDS SUMMARY | 2024-09-30 14:25 | XMS_ITS | Encounter Summary ---
Author Organization [facility] Address [address] [place] [address] Care Team Providers Care Home Connect Lpn Name Role Phone Nguyen Rosado MD Primary Care Provide r Encounter Details Date Type Department Care Team (Late st Contact Info) Description 05/29/2018 Correspondence [facility] Neuroscience [place] [address] [facility] [place] [address] Ruby Michel MD [address] [place], [place] [address] [facility] Social History Tobacco Use [...] Last Indicated Resolved Time R/O COVID19 06/23/2020 06/23/202006/2306/23/2020 8:05 PM CDT R/O COVID19 11/29/2020 11/29/2020 11/29/2020 8:09 AM CDT documented as of this encounter Care Teams Home Connect Lpn Relationship Specialty Start Date End Date Nguyen Rosado MD [address] [place] [address] PCP - General Internal Medicine 03/17/20 documented as of this encounter
--- OUTSIDE RECORDS SUMMARY | 2024-09-30 14:25 | XMS_ITS | Encounter Summary ---
Author Organization [facility] Address [address] [place] [address] Care Team Providers Care Liquor Grinder Mill Operator Name Role Phone Soheila Greene ROD REPAIR MECHANIC Unavailable Ruby Michel MD Unavailable [phone] Ruby Michel MD Unavailable [phone] Nguyễn Orta MD Primary Care Provider Reason for Visit * Reason Onset Date Comments message to provider 04/17/2024 Encounter Details Date Type Department Care Team (Late st Contact Info) Description 04/17/2024 Telephone [facility] [address] [address] Ruby Michel MD [address] [place] [address] message to provider Social History Tobacco Use Types Packs/Day Years Used Date Smoking Tobacco: Never Smokeless Tobacco: Never PHQ-2 Answer Date Recorded PHQ-2 Score 0 01/21/2024 Adolescent Education Answer Date Record ed Getting School Help Needed Not on file 12/16 Comments Unknown Sex and Gender Information Value Date Recorded Sex Assigned at Not on file Legal Sex Female 4:21 AM GREY WASHER Gender Identity Not on file Sexual Orientation Not on file documented as of this encounter Miscellaneous Notes * Telephone Encounter - Natacha Mishra - 04/17/2024 12:17 PM CST [facility] Call Center Phone Message May a detailed message be left on voicemail: yes Reason for Call: Patient sending message to Dr. Michel that she is filling a restraining order against her husbands daughters. Patient wanted Dr. Michel her to know. Patient is taking Seroquel to sleep Patient is also drinking white wine to sleep. Action Taken: [facility] Travel Screening: Not Applicable Date of Service: WASHER documented in this encounter Plan of Treatment Upcoming Encounters Date Type Department Care Team (Late st Contact Info) Description 2024 12:20 PM CDT Appointment [facility] [address] [place] [phone] Ruby Michel MD [address] [place] [address] 2024 1:00 PM CDT Appointment [facility] [place] [phone] Ruby Michel MD [address] [place] [address] 10/09/2024 11:30 AM CDT Office Visit [facility] [address] [place] [address] Ruby Michel MD [address] [place] [address] documented as of this encounter Visit Diagnoses Not on filedocumented in this encounter Care Teams Liquor Grinder Mill Operator Relationship Specialty Start Date End Date Nguyễn Orta MD [facility] [address] [place] [address] PCP - General Internal Medicine 8/22/23 Soheila Greene APRN REPAIR MECHANIC [address] [facility] [id number] [place], [place] [id number] Nurse Practitioner Neurological Surgery 04/26/22 Ruby Michel MD [address] [place], [place] [phone] Neurology 07/10/22 Ruby Michel MD [address] [place], [place] [phone] Assigned Neuroscience Provider 08/19/22 documented as of this encounter
--- OUTSIDE RECORDS SUMMARY | 2024-09-30 14:26 | XMS_ITS | Clinical Summary ---
Author Organization [facility] Address [address] [place] [address] Care Team Providers Care Manganese Breaker Name Role Phone Soheila Greene Diann ROD FORM SETTER STEEL FORMS Unavailable [phone] Ruby Michel MD Unavailable [phone] Ruby Michel MD Unavailable [phone] Nguyễn Orta MD Primary Care Provider Allergies Active Allergy Reactions Criticality Noted Date Comments Corticosteroids High 09/14/2014 PN: Becomes manic - last experience was hospitalized due to reaction Immune Globulin 08/14/2022 Depression and hypomania Iodinated Contrast Media Hives 04/24/2022 Penicillins Anaphylaxis High 04/24/2022 Swelling of the tongue, throat Fluoxetine Anaphylaxis High 04/24/2022 hives Bupropion Anaphylaxis High 11/03/2022 Medications ondansetron (ZOFRAN) 4 MG tabletIndicatio ns:MS (multiple sclerosis) (H) Take 1-2 tablets (4-8 mg) by mouth every 6 hours as needed for nausea 30 tablet 1 05/10/19 23 Active Additional Information Patient not taking.Reported on 05/26/2024 albuterol (PROAIR HFA/PROVENTIL HFA/VENTOLIN HFA) 108 (90 Base) MCG/ACT inhaler Inhale 1-2 puffs into the lungs every 6 hours as needed for shortness of breath, wheezing or cough Active levothyroxine (SYNTHROID/LEVO THROID) 75 MCG tablet Take 75 mcg by [...] daily Active diclofenac (VOLTAREN) 1 % topical gelIndications: Multiple sclerosis exacerbation (H) Apply 4 g topically 4 times daily 350 g 11/16/19 Active Additional Information Patient not taking.Reported on 05/26/2024 gabapentin (NEURONTIN) 100 MG capsuleIndicati ons:Trigeminal neuralgia Take 1 capsule (100 mg) by mouth 3 times daily. 90 capsule 11 01/21/20 Active Additional Information Patient not taking.Reported on 05/26/2024 dalfampridine (AMPYRA) 10 MG TB12 12 hr tabletIndicatio ns:MS (multiple sclerosis) (H),Left hemiparesis (H),Gait instability Take 1 tablet (10 mg) by mouth 2 times daily. 60 tablet 11 01/21/20 24 Active Additional Information Patient not taking.Reported on 05/26/2024 baclofen (LIORESAL) 10 MG tabletIndicatio ns:MS (multiple sclerosis) (H),Left hemiparesis (H) Take 0.5 tablets (5 mg) by mouth 2 times daily for 14 days, THEN 1 tablet (10 mg) 2 times daily. 60 tablet 5 05/27/19 25 025 Active nortriptyline (PAMELOR) 10 MG capsuleIndicati ons:Cervico-occ ipital neuralgia of left side Take 1-2 capsules (10-20 mg) by mouth at bedtime. 60 capsule 5 09/23/19 25 Active carBAMazepine (CARBATROL) 100 MG 12 hr capsuleIndicati ons:Trigeminal neuralgia Take 1 capsule (100 mg) by mouth 3 times daily. 90 capsule 11 05/20/19 25 025 Discontinued Active Problems Problem Noted Date Diagnosed Date Osteoarthritis of spine with radiculopathy, cerv ical region 05/25/2023 Cervical pain 05/25/2023 Decreased enrollment management manager strength 05/25/2023 Trigeminal neuralgia 11/03/2022 Bilateral leg weakness 11/03/2022 Multiple sclerosis exacerbation 11/03/2022 Hypogammaglobulinemia 04/24/2022 Encounters Date Type Department Care Team Description 09/24/2024 [facility] Multiple S[facility] [address] [phone] Ruby Michel MD MRI Order 09/22/2024 [facility] Neurology [address] [phone] Ruby Michel MD Medication Question (Pain reliever for occipital neuralgia) 09/10/2024 [facility] Multiple Sclerosis [address] [phone] Ruby Michel MD 09/05/2024 [facility] Multiple Sclerosis [address] [phone] Ruby Michel MD Patient Request (Call back) 08/25/2024 [facility] Neurology [address] [phone] Ruby Michel MD Letter for School/Work 08/19/2024 [facility] Multiple Sclerosis [address] [phone] Ruby Michel MD Call Back from Last 3 Months Family History Medical [...] on file Legal Sex Female 4:21 AM CUSTOM SEAMSTRESS Gender Identity Not on file Sexual Orientation Not on file Last Filed Vital Signs Vital Sign Reading Time Taken Comments Blood Pressure 141/106 05/26/2024 1:01 PM CUSTOM SEAMSTRESS Pulse 84 05/26/2024 1:01 PM CUSTOM SEAMSTRESS Temperature 36.9 C (98.5 F) 11/15/2022 8:21 AM CDT Respiratory Rate 18 11/15/2022 8:21 AM CDT Oxygen Saturation 96% 11/15/2022 8:21 AM CDT Inhaled Oxygen Concentration - - Weight 43.8 kg (96 lb 9.6 oz) 11/14/2022 8:35 AM CDT Height 170.2 cm (5' 7) 11/04/2022 8:25 AM CDT Body Mass Index 15.13 11/04/2022 8:25 AM CDT Plan of Treatment Upcoming Encounters Date Type Department Care Team (Late st Contact Info) Description 2024 12:20 PM CDT Appointment [facility] [address] [place] [phone] Ruby Michel MD [address] [place] [phone] 1:00 PM CDT Appointment [facility] [address] [place] [phone] Ruby Michel MD [address] [place] [address] 10/09/2024 11:30 AM CDT Office Visit [facility] [address] [place] [address] Ruby Michel MD [address] [place] [address] Health Maintenance Due Date Last Done Comments ADVANCE CARE PLANNING 1963 ANNUAL REVIEW OF HM ORDERS 1963 CT COLONOGRAPHY 1963 FLEX SIG 1963 sDNA (Cologuard) 1963 COLONOSCOPY 10/03/1973 HIV SCREENING 10/03/1978 MEDICARE ANNUAL WELLNESS VISIT 10/03/1981 ZOSTER VACCINE (1 of 2) 10/03/1982 PAP 10/03/1984 LIPID 2003 PNEUMOCOCCAL VACCINE 50+ YEARS (2 of 2 - PPSV23) 02/10/2015 12/16/2014 MAMMO SCREENING 03/10/2020 03/10/2019, 02/23, 09/12/2013 COLORECTAL CANCER SCREENING 05/26/2020 FIT 05/26/2020 05/27/2019 COVID-19 VACCINE (3 - Pfizer risk series) 11/18/2020 10/21/2020, 08/09/2020 RSV VACCINE (1 - Risk 60-74 years 1-dose series) 2023 TSH W/FREE T4 REFLEX 11/04/2023 11/03/2022, 08/12/19 08 INFLUENZA VACCINE (#1) 2024 , 02/12/2020, 01/01/2019, Additional history exists DTAP/TDAP/TD VACCINE (3 - Td or Tdap) 12/16/2024 12/16/2014, 08/21/2013, 03/25/2013, Additional history exists DIABETES SCREENING 01/20/2027 01/21/2024, 0 11/10/2022, 11/07/2022, Additional history exists HEPATITIS C SCREENING Completed 03/10/2019 PHQ-2 (once per calendar year) Completed 05/26/2024, 01/21/2024, 05/01/2022, Additional history exists HPV VACCINE Aged Out No longer eligi ble based on patient's age to complete this topic MENINGITIS VACCINE Aged Out No longer eligible based on patient's age [...] 22 - 29 mmol/L 01/21/2024 10:05 AM [facility] Anion Gap 15 7 - 15 mmol/L 01/21/2024 10:05 AM [facility] Urea Nitrogen 18.4 8.0 - 23.0 mg/dL 01/21/2024 10:05 AM [facility] Creatinine 0.97(H) 0.51 - 0.95 mg/dL 01/21/2024 10:05 AM T [facility] GFR Estimate 67 >60 mL/min/1.7 3m2 01/21/2024 10:05 AM [facility] Comment:eGFR calculated us2020 CKD-EPI equation. Calcium 9.5 8.8 - 10.4 mg/dL 01/21/2024 10:05 AM [facility] Comment:Reference intervals for this test were updated on 10/09/2023 to reflect our healthy population more accurately. There may be differences in the flagging of prior results with similar values performed with this method. Those prior results can be interpreted in the context of the updated reference intervals. Glucose 152(H) 70 - 99 mg/dL 01/21/2024 10:05 AM [facility] Blood STRUCTURE OF RIGHT UPPER LIMB / Unknown Venipuncture / Unknown 01/21/2024 9:37 AM CDT 01/21/2024 9:37 AM CDT Ruby Michel MD LAB - BLOOD ORDERABLES Final Result [facility] [address] [place] [address], [facility] * TSH with free T4 reflex (11/03/2022 3:34 AM CDT) TSH 3.78 0.30 - 4.20 uIU/mL 11/03/2022 9:13 AM CDT [facility] Blood BLOOD SPECIMEN / Unknown Venipuncture / Unknown 11/03/2022 3:34 AM CDT 11/03/2022 3:44 AM CDT us Ju Ortiz PA-C LAB - BLOOD ORDERABLES Patricia roberts Result [facility] [address] [facility] [place] [address], [facility] [phone] from Last 3 Months or Most Recently Relevant to Health Maintenance Insurance [employer] MEDICARE ADVANTAGE [employer] ADVANTAGE Advance Directives For more information, please contact: [phone] * Full Code (Latest Code Status on File) Date Activated Date Inactivated Comments 11/03/2022 8:19 AM 11/15/2022 1:41 PM All basic an d advanced life-sustaining interventions are performed as appropriate Question Answer Comments Code status determined by: Discussion with patie nt/ legal decision maker Care Teams Manganese Breaker Relationship Specialty Start Date End Date Nguyễn Orta MD [facility] [address] [place] [address] PCP - General Internal Medicine 11/14/22 Soheila Greene APRN FORM SETTER STEEL FORMS [address] [place] [address] [id number] [place] [address] Nurse Practitioner Neurological Surgery 04/26/22 Ruby Michel MD [address] [place] [id number] Neurology 07/10/22 Ruby Michel MD [address] [place] [address] Assigned Neuroscience Provider 08/19/22
[2024-09-30 14:28] VITALS: BP 155/100; PULSE 96; RESP 18; TEMP 36.4; O2SAT 97; BMI 18.9
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
[2024-09-30 16:19] LABS: Appearance Urine Clear (Clear)
[2024-09-30] MEDS: ONDANSETRON 2 MG/ML inj 4 MG IVP (16:20)
[2024-09-30 16:51] LABS: Lactate* 0.7 mmol/L (0.5-1.9)
[2024-09-30 16:54] LABS: Hematocrit 46.2 % (33.0-51.0); Hemoglobin* 15.2 gm/dL (12.0-16.0); Immature Granulocytes Abs Auto 0.01 K/uL (0.00-0.30); Immature Granulocytes Pct Auto 0.1 %; Lymphocytes Absolute Auto 2.24 K/uL (0.90-2.90); Mean Corpuscular HGB Conc 33 gm/dL (32-36); Mean Corpuscular Hemoglobin 31 pg (26-34); Mean Corpuscular Volume 93 fL (80-100); RDW Coefficient of Variation % 12.5 % (11.5-15.5); Red Blood Count 4.95 m/uL (4.00-5.20); White Blood Count* 6.88 K/uL (4.50-11.00)
[2024-09-30 17:05] LABS: Slide Review Reflex No
[2024-09-30 17:07] LABS: Chloride* 103 mmol/L (96-114); Potassium* 3.9 mmol/L (3.6-5.1); Sodium* 139 mmol/L (135-149)
[2024-09-30 17:10] LABS: Anion Gap 7 mEq/L (7-15); Blood Urea Nitrogen* 21 mg/dL (7-30); Calcium* 9.9 mg/dL (8.4-10.6); Carbon Dioxide* 29 mmol/L (20-32); Creatinine* 0.9 mg/dL (0.5-1.5); Est. Creatinine Clearance* 47.60; Estimated Glomerular Filt Rate 73 ml/min; Glucose* 88 mg/dL (60-115)
[2024-09-30 18:51] VITALS: BP 158/98; PULSE 92; RESP 16
== END 2024-09-30 18:55 | disposition home or self-care (01) ==
PROVIDERS: Emergency Provider Emergency Medicine; PCP Internal Medicine
DX: R53.1 Weakness (principal); R11.0 Nausea; G35 Multiple sclerosis; J45.909 Unspecified asthma, uncomplicated; F31.9 Bipolar disorder, unspecified; K21.9 Gastro-esophageal reflux disease without esophagitis
CPT/HCPCS: 36415; 80048; 81001; 83605; 85025; 96374; 99283; 99284; J2405; J7030

== ENCOUNTER 2025-02-06 13:24 | Emergency (ER) | payer MEDICARE, SELFPAY ==
[2025-02-06] VITALS (18 sets, daily range): BP systolic 127–141; BP diastolic 86–92; PULSE 90–109; RESP 16; TEMP 37; O2SAT 80–99; BMI 18.9
--- NOTE | 2025-02-06 13:41 | ED.GENADULT ---
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 demyelinating lesions that would be confirm an acute MS flare. He MRI of the brain shows chronic MS changes but no signs of acute flare. In discussion with neurology from Dr. Cali Kaufman, she would advise that sometimes MS can cause flares in the spinal cord and that for week and truly rule out MS flare we wished would need MR of the patient's C-spine, T-spine, and possibly L-spine with and without contrast. Unfortunately further MRI imaging is not available here in [place] because our MRI scanner closed 5:00 p.m. and will not open again until Sunday. We considered possible empiric treatment with high-dose steroids and admission here in [place]. However steroids are relatively contraindicated for this patient because they can cause (and have in the past caused) and exacerbation of her bipolar disorder leading to kavon. Therefore plan will be to get the patient transferred to the [facility] [place] for further workup with MR imaging and if they do confirm acute MS flares, a treatment plan can be devised with direct consultation by Neurology. She may need second-line interventions such as IVIG, rather steroids. Discussed with Dr. Tai, the hospitalist at [facility] and he accepts. She will be transferred by EMS to the [facility]. The patient is very concerned that if she transfers by EMS she will not have any way to get. She is currently renting a room at an Airbnb near [place]. Her car is here in the [place] parking. I discussed this with the accepting provider from [place] he says that there are drug abuse social worker and manager rn case at [facility] that can help arrange transport home. He indicates that often they will arrange a taxi cab or uber rides to get patients home. Broad differential is considered when considering causes of generalized weakness. She denies any fever any clear infection. In doing white count is normal. No evidence for sepsis. UA normal. Lab workup shows normal sodium and potassium. Normal kidney function. Magnesium is low at 1.2-supplemented here in the ER. LFTs are mildly abnormal with an AST of 49 and ALT of 37. Normal total bilirubin. Albumin is normal at 3.3. She does endorse some suicidal thoughts but denies any specific suicidal plan. We did do labs to look for any potential undisclosed ingestion and acetaminophen, salicylate, alcohol levels are negative. She is not displaying any clear toxidrome. Unclear if her mental health may be playing role with her weakness as well. If MS is ruled out, or fails to respond to appropriate treatment, consider psychiatric evaluation. Lab Data Labs: Lab Results 02/06/25 02/06/25 Range/Units 15:10 17:05 WBC 9.72 (4.50-11.00) K/uL RBC 4.87 (4.00-5.20) m/uL Hgb 14.9 (12.0-16.0) gm/dL Hct 44.4 (33.0-51.0) % MCV 91 (80-100) fL MCH 31 (26-34) pg MCHC 34 (32-36) gm/dL RDW Coeff of Estrellita 12.3 (11.5-15.5) % Plt Count 264 (140-440) K/uL Neut % (Auto) 74.1 H (42.0-72.0) % Lymph % (Auto) 16.2 L (20-44) % [place] % (Auto) 8.0 (0.0-11.0) % Eos % (Auto) 0.5 (0.0-7.0) % Baso % (Auto) 0.4 (0.0-3.0) % Neut # (Auto) 7.20 H (1.7-7.0) K/uL Lymph # (Auto) 1.60 (0.90-2.90) K/uL Crook # (Auto) 0.80 (0.00-0.90) K/UL Eos # (Auto) 0.05 (0.00-0.50) K/uL Baso # (Auto) 0.04 (0.00-0.30) K/uL Abs Immat Gran (auto) 0.08 (0.00-0.30) K/uL Imm/Tot Granulo (auto) 0.8 % Sodium 137 (135-149) mmol/L Potassium 3.8 (3.6-5.1) mmol/L Chloride 104 (96-114) mmol/L Carbon Dioxide 20 (20-32) mmol/L Anion Gap 13 (7-15) mEq/L BUN 8 (7-30) mg/dL Creatinine 0.2 L (0.5-1.5) mg/dL Estimated Creat Clear 42.30 Estimated GFR 133 ml/min Glucose 150 H (60-115) mg/dL Calcium 8.2 L (8.4-10.6) mg/dL Magnesium 1.2 L (1.5-2.6) mg/dL Total Bilirubin 1.4 (0.1-1.5) mg/dL AST 49 H (12-35) U/L ALT 37 H (4-35) U/L Alkaline Phosphatase 144 (40-150) U/L Total Protein 5.9 L (6.0-8.3) g/dL Albumin 3.3 (3.3-5.0) g/dL TSH 0.475 (0.270-4.200) uIU/mL Urine Color Yellow (Yellow) Urine Appearance Clear (Clear) Urine pH 7.0 (5.0-8.5) Ur Specific [place] 1.015 (1.000-1.030) Urine Protein Negative (Negative) Urine Glucose (UA) Negative (Negative) Urine Ketones Negative (Negative) Urine Blood Negative (Negative) Urine Nitrite Negative (Negative) Urine Bilirubin Negative (Negative) Urine Urobilinogen 0.2 (0.2-1.0) Ur Leukocyte Esterase Negative (Negative) Urine RBC 0-2 (0-2) Urine WBC 0-2 (0-5) Ur Squamous Epith Cells None (None-Few) Urine Bacteria None (None) Salicylates < 1.0 L (1.0-10) mg/dL Urine Opiates Screen Negative (Negative) Ur Oxycodone Screen Negative (Negative) Urine Methadone Screen Negative (Negative) Acetaminophen < 10.0 (10.0-30.0) ug/mL Ur Barbiturates Screen Negative (Negative) U Tricyclic Antidepress Negative (Negative) Ur Phencyclidine Scrn Negative (Negative) Ur Amphetamines Screen Negative (Negative) U Methamphetamines Scrn Negative (Negative) U Benzodiazepines Scrn Negative (Negative) Urine Cocaine Screen Negative (Negative) U Marijuana (THC) Screen Negative (Negative) Ur Drug Screen Comment See Note Ethyl Alcohol < 0.01 (0.01-0.03) % Imaging Data MR brain: Attestation: I have reviewed the pertinent imaging results. Radiologist's impression: IMPRESSION: 1. Mild supratentorial and infratentorial T2 hyperintense white matter lesions consistent with demyelinating plaques of patient`s reported multiple sclerosis. 2. Mild T1 hypointense lesion load. No corresponding enhancement to suggest active demyelination 3. No acute intracranial abnormality. 4. Mild generalized cerebral volume loss ECG Data Attestation: I personally reviewed and interpreted this ECG as follows: Interpretation: Normal sinus rhythm Rate 80 OK interval 144 Normal QRS axis Nonspecific T-wave flattening in leads V1-V4. No ST segment elevation or depression QT 350, QTC 423 Discharge Plan Discharge Clinical Impression: Bilateral leg weakness, Hypomagnesemia Patient Disposition: Xfer Other Prescriptions: No Action levothyroxine 75 mcg tablet 75 mcg PO DAILY Qty: 90 2RF amlodipine 10 mg tablet 10 mg PO DAILY Qty: 30 3RF benztropine 0.5 mg tablet 0.5 mg PO BID buspirone 7.5 mg tablet 7.5 mg PO BID metformin 500 mg tablet 500 mg PO QDAY risperidone 2 mg tablet 2 mg PO QHS CertaVite Senior 0.4 mg-300 mcg- 250 mcg tablet 1 tab PO QDAY albuterol sulfate 90 mcg/actuation HFA aerosol inhaler 2 inh inhalation Q4H PRN (Reason: Asthma) Qty: 6.7 0RF fluticasone propionate 110 mcg/actuation HFA aerosol inhaler 1 puff inhalation BID Qty: 12 0RF Rx Instructions: administer with spacer valacyclovir 1 gram tablet 1,000 mg PO QDAY Qty: 30 0RF nortriptyline 25 mg capsule 25 mg PO QHS Qty: 30 2RF bit b12, b1, and b9 1 cap PO DAILY lorazepam 0.5 mg tablet 0.5 mg PO QDAY PRN Stand Alone Forms: [facility] Info Instructions
--- NOTE | 2025-02-06 14:30 | CRLHL7_ITS ---
For Patients: As a result of the Century Cures Act, medical imaging exams and procedure reports are released immediately into your electronic medical record. You may view this report before your referring provider. If you have questions, please contact your health care provider. INDICATION: Weakness. COMPARISON: None available. TECHNIQUE: Multiplanar T1, T2, FLAIR and diffusion-weighted imaging. Post gadolinium T1 weighted sequences. Gadolinium 9 cc IV. FINDINGS: There are multiple T2/FLAIR signal hyperintense lesions with the periventricular subcortical white matter of both supra hemispheres consistent with chronic demyelinating plaques. Patchy T2/FLAIR signal hyperintense lesions of the brainstem which also likely represent demyelinating plaques. There is corresponding mild T1 hypointensity of the white-matter lesions. No corresponding enhancement to suggest active demyelination. Mild generalized volume loss. No significant atrophy of the corpus callosum. No intracranial hemorrhage. No abnormal ventricular dilatation. Intracranial vascular flow voids are preserved. No mass effect or midline shift. No restricted diffusion to suggest acute ischemia. No abnormal enhancement or enhancing lesions. Bilateral orbits are unremarkable. Normal appearing sella. Visualized paranasal sinuses mastoid air cells are unremarkable. IMPRESSION: 1. Mild supratentorial and infratentorial T2 hyperintense white matter lesions consistent with demyelinating plaques of patient`s reported multiple sclerosis. 2. Mild T1 hypointense lesion load. No corresponding enhancement to suggest active demyelination 3. No acute intracranial abnormality. 4. Mild generalized cerebral volume loss Dictated by Nick Renee MD @ 02/06/2025 5:11:24 PM (Electronically Signed)
[2025-02-06 15:17] LABS: Hematocrit* 44.4 % (33.0-51.0); Hemoglobin* 14.9 gm/dL (12.0-16.0); Immature Granulocytes Abs Auto 0.08 K/uL (0.00-0.30); Immature Granulocytes Pct Auto 0.8 %; Mean Corpuscular HGB Conc 34 gm/dL (32-36); Mean Corpuscular Hemoglobin 31 pg (26-34); Mean Corpuscular Volume 91 fL (80-100); RDW Coefficient of Variation % 12.3 % (11.5-15.5); Red Blood Count* 4.87 m/uL (4.00-5.20); White Blood Count* 9.72 K/uL (4.50-11.00)
[2025-02-06 15:30] LABS: Albumin* 3.3 g/dL (3.3-5.0); Lymphocytes Absolute Auto 1.60 K/uL (0.90-2.90); Slide Review Reflex No
[2025-02-06 15:31] LABS: Chloride* 104 mmol/L (96-114); Potassium* 3.8 mmol/L (3.6-5.1); Sodium* 137 mmol/L (135-149)
[2025-02-06 15:33] LABS: Alanine Aminotransferase* 37 U/L (4-35); Alkaline Phosphatase* 144 U/L (40-150); Anion Gap 13 mEq/L (7-15); Aspartate Amino Transferase* 49 U/L (12-35); Bilirubin Total* 1.4 mg/dL (0.1-1.5); Blood Urea Nitrogen* 8 mg/dL (7-30); Carbon Dioxide* 20 mmol/L (20-32); Creatinine* 0.2 mg/dL (0.5-1.5); Est. Creatinine Clearance* 42.30; Estimated Glomerular Filt Rate 133 ml/min; Total Protein* 5.9 g/dL (6.0-8.3)
[2025-02-06 15:34] LABS: Calcium* 8.2 mg/dL (8.4-10.6); Glucose* 150 mg/dL (60-115)
[2025-02-06 15:41] LABS: Acetaminophen* < 10.0 ug/mL (10.0-30.0); Ethanol* < 0.01 % (0.01-0.03); Salicylate* < 1.0 mg/dL (1.0-10)
[2025-02-06 16:42] LABS: TSH With Reflex to FT4* 0.475 uIU/mL (0.270-4.200)
[2025-02-06 17:14] LABS: Appearance Urine Clear (Clear)
[2025-02-06 17:25] LABS: Cannabinoid Screen Urine Negative (Negative); Methamphetamines Screen Urine Negative (Negative); Tricyclic Antidepressant Urine Negative (Negative)
[2025-02-06] MEDS: MAGNESIUM IV 2 GM/50 ML PIGGYBACK IVPB (17:55)
== END 2025-02-06 21:32 | disposition other institution (70) ==
PROVIDERS: Emergency Provider Emergency Medicine; PCP Internal Medicine
DX: R53.1 Weakness (principal); E83.42 Hypomagnesemia; G35.D Multiple sclerosis, unspecified; F32.A Depression, unspecified; F41.8 Other specified anxiety disorders; R45.851 Suicidal ideations
CPT/HCPCS: 36415; 70553; 80053; 80143; 80179; 80306; 81001; 82077; 83735; 84443; 85025; 93005; 96365; 96366; 96375; 99285; A9575; J2060; J3475; J7030

== ENCOUNTER 2025-02-06 21:25 | Outpatient (CLI) | payer MEDICARE, SELFPAY | END 2025-02-06 21:26 | disposition home or self-care (01) | LOC: AMB 02-10 19:16 | PROVIDERS: PCP Internal Medicine; Visit Provider Family Medicine | DX: R29.898 Other symptoms and signs involving the musculoskeletal system (principal); E83.42 Hypomagnesemia; G35.D Multiple sclerosis, unspecified | CPT/HCPCS: A0425; A0429 ==

== ENCOUNTER 2025-02-10 17:14 | Outpatient (CLI) | payer MEDICARE, SELFPAY | END 2025-02-10 17:15 | disposition home or self-care (01) | LOC: AMB 02-16 14:47 | PROVIDERS: PCP Internal Medicine; Visit Provider Emergency Medicine Emergency Medical Services | DX: R06.09 Other forms of dyspnea (principal); R42 Dizziness and giddiness; R53.1 Weakness | CPT/HCPCS: A0425; A0427 ==

== ENCOUNTER 2025-02-10 17:51 | Observation (INO) | payer MEDICARE, SELFPAY ==
[2025-02-10] VITALS (8 sets, daily range): BP systolic 140–175; BP diastolic 101–122; PULSE 113–120; RESP 14–20; TEMP 36.8–37.4; O2SAT 97–99; BMI 17.6; BMI 18.0; BMI 18.1
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
[2025-02-10] MEDS: NORTRIPTYLINE HCL 25 MG CAPSULE PO (22:51)
[2025-02-10] MEDS: SODIUM CHLORIDE 0.9 % (FLUSH) 10 ML SYRINGE 5 ML IVF (22:52)
[2025-02-10] MEDS: BENZTROPINE MESYLATE 1 MG TABLET 0.5 MG PO (22:52)
[2025-02-11] MEDS: DOCUSATE SODIUM 100 MG CAPSULE PO (01:09)
[2025-02-11 03:41] VITALS: BP 138/103; PULSE 111; RESP 18; TEMP 37.1; O2SAT 97
--- NOTE | 2025-02-11 05:08 | PC.NURSE ---
Addendum entered by Amanda Gonzalez RN 02/11/25 07:43: pt unable to void second time trying on pivot to bedside commode w/ x2A. Bladder scan indicated greater than 700cc. RN attempted straight cath x2. security researcher attempted straight cath x2. Pt then voided into brief. RN bladder scanned, still demonstrated greater than 500cc. MD notified. External catheter placed to promote release. supervisor [employer] notified. Original Note: shift note: pt is AOx4. pt shares her son three weeks ago and she does not want to live. RN asked pt if she had a plan to harm herself. pt responded no. I feel safe here. pt consumes 3/4 of protein supplement shake. pt reports has not had a BM for two days. prn stool softener given. pt denies N/V and ABD pain. pt pivot to bedside commode w/ GB w/ RN and security researcher. Void not successful, bladder scan performed. pt reports no pain in bladder area. Brief in place. pt sleeps soundly in the night.
[2025-02-11 06:48] LABS: Hematocrit* 46.2 % (33.0-51.0); Hemoglobin* 15.4 gm/dL (12.0-16.0); Mean Corpuscular HGB Conc 33 gm/dL (32-36); Mean Corpuscular Hemoglobin 31 pg (26-34); Mean Corpuscular Volume 92 fL (80-100); RDW Coefficient of Variation % 12.7 % (11.5-15.5); Red Blood Count* 5.01 m/uL (4.00-5.20); White Blood Count* 9.83 K/uL (4.50-11.00)
[2025-02-11 06:49] LABS: Immature Granulocytes Abs Auto 0.02 K/uL (0.00-0.30); Immature Granulocytes Pct Auto 0.2 %
[2025-02-11 06:50] LABS: Albumin* 4.2 g/dL (3.3-5.0); Chloride* 100 mmol/L (96-114)
[2025-02-11 06:51] LABS: Potassium* 4.3 mmol/L (3.6-5.1); Sodium* 140 mmol/L (135-149)
[2025-02-11 06:53] LABS: Blood Urea Nitrogen* 22 mg/dL (7-30); Creatinine* 1.1 mg/dL (0.5-1.5); Est. Creatinine Clearance* 36.75; Estimated Glomerular Filt Rate 57 ml/min; Lymphocytes Absolute Auto 1.70 K/uL (0.90-2.90)
[2025-02-11 06:54] LABS: Alanine Aminotransferase* 16 U/L (4-35); Alkaline Phosphatase* 117 U/L (40-150); Anion Gap 16 mEq/L (7-15); Aspartate Amino Transferase* 24 U/L (12-35); Bilirubin Direct* 0.3 mg/dL (0.0-0.5); Bilirubin Total* 0.5 mg/dL (0.1-1.5); Calcium* 10.0 mg/dL (8.4-10.6); Carbon Dioxide* 24 mmol/L (20-32); Glucose* 87 mg/dL (60-115); Slide Review Reflex No; Total Protein* 6.5 g/dL (6.0-8.3)
[2025-02-11 07:38] VITALS: BMI 17.4
[2025-02-11 07:50] VITALS: BP 153/114; PULSE 115; RESP 16; TEMP 37; O2SAT 95
[2025-02-11] MEDS: BUSPIRONE 10 MG TABLET PO ×2 (09:39→21:15)
[2025-02-11] MEDS: SODIUM CHLORIDE 0.9 % (FLUSH) 10 ML SYRINGE 5 ML IVF ×2 (09:39→21:15)
[2025-02-11] MEDS: LEVOTHYROXINE 75 MCG TABLET PO (09:39)
[2025-02-11] MEDS: METFORMIN 500 MG TABLET PO (09:39)
[2025-02-11] MEDS: BENZTROPINE MESYLATE 1 MG TABLET 0.5 MG PO ×2 (10:57→21:15)
[2025-02-11 11:00] VITALS: BP 131/103; PULSE 116; RESP 16; TEMP 36.8; O2SAT 96
--- NOTE | 2025-02-11 11:19 | W.PC.NUTR.HO ---
Hospital Nutrition Assessment Patient Data Patient Gender: Female Patient Age: 59 Height: 5 ft 1 in (154.94 cm) Weight: 92 lb 3.2 oz (41.90 kg) Body Mass Index: 17.4 Weight Calculations [place] Body Weight (lbs): 105.00 [place] Body Weight (kg): 47.63 Percent of [place] Body Weight: 88 Adjusted Body Weight (lbs): 101.80 Adjusted Body Weight (kg): 46.18 Basal Energy Expenditure (BEE): 1056.44 Basal Energy Expenditure (BEE) Adjusted Weight: 1098.12 Activity/Stress Factors Injury Factor/Activity Factor Value: 1.3 Total Energy Requirements Kcal requirements (current wt): 1373.372 Kcal requirements (adj wt): 1427.556 Protein Need (current wt): 1.2 Total Protein (current wt): 50.185 Protein Need (adj wt): 1.2 Total Protein (adj wt): 55.416 Fluid Need (current wt): 30 Total Fluid (current wt): 1254.636 Fluid Need (adj wt): 30 Total Fluid (adj wt): 1385.40 Nutrition Assessment Diet Order: Regular Food Modified for Dysphagia: 7-Regular Liquid Modified for Dysphagia: 0-Thin Allergies: NKFA Appetite Prior to Admission: Poor (Per MD report) Appetite and Intake: 100% intake breakfast this AM. Hx Appetite Changes: Yes (Very poor apetite. ) Hx Weight Loss: Yes (-8 lbs within 1 year, - 5 lbs within 6 months. This is not significant loss) Hx Weight Gain: No Nausea: No Vomiting: No Diarrhea: No Hx Constipation: No Chewing Difficulty: No Swallowing Difficulty: No Pressure Ulcer: No Diagnosis/Symptom or Procedure: Weakness, Bipolar disorder Clinical History: Medical history includes but not limited to multiple sclerosis, bipolar depression and generalized anxiety. Per MD report, she was recently hospitalized at [facility] from October 28 to January 09 for bipolar disorder, depression, generalized anxiety. Current Living Situation: [facility] in [place]. Medications Medications: reviewed. Lab Results Lab Results: reviewed. Assessment/Plan PES Statement: Recent weight loss related to poor appetite and intakes per pt report as evidenced by loss of 8 lbs within 1 year, - 5 lbs within 6 months. Nutritional Assessment Summary: RDN with nutrition screen related to underweight BMI. Patient admitted with weakness and bipolar disorder. Intakes at 100% since admit. Weight loss noted, however not significant. Pt reports low appetite and intakes recently per MD report. MD report also mentions very poor muscle mass. RDN spoke to hospitalist today, she reports it is not appropriate to visit with patient at this time. Pt is moving to 1:1 for suicide precautions. Discharge Plan-Living Situation: TBD Goals: Adequate oral intakes of 50%+ meals and snacks. No s/s dehydration. Plan/Recommendation: Diet order per MD order. Regular at this time. RDN will continue to monitor and attempt to visit when more appropriate. Malnutrition Assessment Current Energy Intake: Less Than 75% Estimated Timeframe Of Energy Intake: Greater Than Or Equal To 1 Month Weight Changes: None (Not significant loss. ) Recommended Malnutrition Diagnosis: Further Physical Evaluation Required By MD To Determine
[2025-02-11 11:32] VITALS: BMI 17.4
[2025-02-11 12:48] LABS: SARS Antigen* Negative (Negative)
--- NOTE | 2025-02-11 14:32 | PC.NURSE ---
Pt is pleasant to care for. VSS. Denies pain. Pt is ambulating with walker and standby assist, pt reports this being her baseline. Pt is voiding well; continent of bowel and bladder. Tolerating a regular diet. Pt has a quiet disposition and has been cooperative with staff. This morning she told the nurse that two nights ago she took three extra risperidone tablets and half a bottle of Tylenol PM, she stated I just didn't want to wake up. When asked if she was still feeling suicidal, she said yes, if I go home I will probably just take the pills again. She reported to nurse that she is currently homeless, recently went through a divorce and that her 26yo son 3 months ago at his long term due to falling and hitting his head on his dresser. Pt has been on suicide precautions and 1:1 observation since approximately 1000.
--- NOTE | 2025-02-11 14:42 | PC.NURSE ---
Nurse 1:1 with patient. Patient quiet, pleasant and cooperative. She ate lunch, did pivot transfer to the bedside commode and had brief conversations with nurse.
--- NOTE | 2025-02-11 14:59 | PC.NURSE ---
Patient ambulated with walker and nurse to bathroom. Unable to void at that time. Bladder scanned and got >450. Patient states she has had luck with the external catheter in the past. Nurse delegated SHANIQUA to set up external catheter. Oncoming RN notified.
[2025-02-11 15:00] VITALS: BP 143/105; PULSE 108; RESP 16; TEMP 36.9; O2SAT 93
--- NOTE | 2025-02-11 15:27 | P.IMPN_ITS ---
Assessment and Plan Assessment and plan (1) Suicide attempt: Problem comment: 02/09 - unknown # of Tylenol PM, risperidone Acetaminophen level Medically stable --Spoke with Dr. Ibanez from [facility] who is her outpatient psychiatrist this morning with the patient. The psychiatrist, hospitalist and the patient all agreed she needs to be placed in inpatient psych secondary to her ongoing and worsening mental health. She is currently in crisis related to housing insecurity, ongoing divorce, ongoing health concerns and new personal loss. She needs med adjustments and therapy in a secure 24/7 unit. Status: Acute (2) Severe anxiety: Problem comment: -housing instability has triggered worsening anxiety and suicide attempt and ongoing ideation Status: Acute (3) Bipolar disorder: Problem comment: -Spoke with Dr. Ibnaez from [facility] who is her outpatient psychiatrist this morning with the patient. The psychiatrist, hospitalist and the patient all agreed she needs to be placed in inpatient psych secondary to her ongoing and worsening mental health. She is currently in crisis related to housing insecurity, ongoing divorce, ongoing health concerns. She needs med adjustments and therapy. -Hospitalized at [facility] from October 28 to January 09 2025 for bipolar disorder, depression, generalized anxiety. Her psychiatrist at [facility] (Dr. Ibanez) feels like she is not getting better. Significant stress from ongoing difficult divorce and housing security and personal loss Status: Acute (4) Hx of multiple sclerosis: Problem comment: Has chronic stable multiple sclerosis with recurrent episodes of weakness which are thought to be pseudo flares of multiple sclerosis. MRI findings from [facility] February 06 admission showed stable demyelinating lesions without active lesions. Status: Acute (5) Hypothyroidism: Problem comment: - stable, continue home meds Status: Acute (6) Hypertension: Problem comment: - stable, continue home medications Status: Acute Subjective Date Seen: 02/11/25 Interval history: Daily Progress Note - Hospital Medicine #: 1 CC: Suicidal attempt, suicidal ideation. Chronic but stable multiple sclerosis. 24 HOUR UPDATE: Arlene was admitted last evening. She had a stable night, neurologically. She did share more of her mental health decline and feelings of current crisis with her overnight RN and with me this morning. She did not tell the ER that she had attempted suicide on the evening of 02/09 this was the same day she was discharged from [facility]. She reports to us that she ?wanted to end it all?. She states that she took numerous Tylenol p.m. and 3-4 times her normal evening dose of risperidone. She awoke the next morning, 02/10 with increased weakness and fatigue. Her current Renter told her she needed to find a new place to live. This housing insecurity along with her mental health crisis precipitated the call to EMS. She was brought to our emergency room. However, she did not report the overdose or increasing mental health crises to our ER doc. she simply stated that she was weak from the MS and could not stay in her current housing situation. This morning she is working with PT and OT. Her exams are inconsistent. She reports directly to me that she feels hopeless and would likely end her life if we discharged her. Direct observation and safety protocols were instituted. Notable Labs, Micro, Rads, Interventions: All her labs drawn this morning are normal. Objective: Withdrawn, soft-spoken. Not agitated. Cooperative. Vitals: Hypertensive, tachycardic likely related to anxiety see above Lungs: Clear. Cardiac: S1S2. Musculoskeletal/neurologic: There has been no changes in her exam since admission. I agree that her strength testing in all 4 extremities is appropriately symmetric. She has poor muscle mass and generalized weakness. There are no obvious focal weakness. She has intact pedal pulses. Disposition/Potential discharge - She needs inpatient treatment. She has been medically cleared/stabilized. Her new physical symptoms are directly related to her mental health crisis. Today I spent 50 minutes seeing the patient, reviewing Expanse and EPIC notes/diagnostics, discussing the care plan with our care time that includes social work, PT/OT, pharmacy, RT, correction and documenting my impressions and plan in the medical record. Exam Const: Vital Signs, click to edit/add: Vital Signs - 24 hr 02/10/25 17:56 02/10/25 18:00 02/10/25 19:00 Temperature 99.4 F Pulse Rate [Pulse Oximeter] Pulse Rate [Right Dorsalis Pedis] Pulse Rate [Right Pulse Oximeter] Pulse Rate [Right Radial] 115 H 118 H 120 H Respiratory Rate 16 15 17 Blood Pressure [Le ft Arm] Blood Pressure [Le ft Upper Arm] 175/122 H 148/109 H 152/105 H Blood Pressure [Ri ght Arm] Pulse Oximetry 99 97 97 Oxygen Delivery Me thod Room Air 02/10/25 20:00 02/10/25 20:39 02/10/25 20:39 Temperature 98.3 F Pulse Rate [Pulse Oximeter] Pulse Rate [Right Dorsalis Pedis] 116 H Pulse Rate [Right Pulse Oximeter] Pulse Rate [Right Radial] 118 H Respiratory Rate 14 20 20 Blood Pressure [Le ft Arm] 145/101 H Blood Pressure [Le ft Upper Arm] 148/111 H Blood Pressure [Ri ght Arm] Pulse Oximetry 97 97 97 Oxygen Delivery Ne thod Room Air Room Air 02/10/25 23:48 02/10/25 23:49 02/10/25 23:54 Temperature 98.3 F 98.3 F Pulse Rate [Pulse Oximeter] Pulse Rate [Right Dorsalis Pedis] Pulse Rate [Right Pulse Oximeter] 113 H 113 H 113 H Pulse Rate [Right Radial] Respiratory Rate 18 18 18 Blood Pressure [Le ft Arm] 140/103 H 140/103 H Blood Pressure [Le ft Upper Arm] Blood Pressure [Ri ght Arm] Pulse Oximetry 97 97 Oxygen Delivery Ne thod Room Air Room Air 02/11/25 03:41 02/11/25 07:50 02/11/25 11:00 Temperature 98.7 F 98.6 F 98.2 F Pulse Rate [Pulse Oximeter] 111 H 115 H 116 H Pulse Rate [Right Dorsalis Pedis] Pulse Rate [Right Pulse Oximeter] Pulse Rate [Right Radial] Respiratory Rate 18 16 16 Blood Pressure [Le ft Arm] Blood Pressure [Le ft Upper Arm] Blood Pressure [Ri ght Arm] 138/103 H 153/114 H 131/103 H Pulse Oximetry 97 95 96 Oxygen Delivery Ne thod Room Air Room Air Room Air Labs Labs: Laboratory Results - last 24 hr 02/11/25 02/11/25 05:54 11:41 WBC 9.83 RBC 5.01 Hgb 15.4 Hct 46.2 MCV 92 MCH 31 MCHC 33 RDW Coeff of Estrellita 12.7 Plt Count 256 Neut % (Auto) 72.3 H Lymph % (Auto) 16.8 L Walker % (Auto) 9.9 Eos % (Auto) 0.5 Baso % (Auto) 0.3 Neut # (Auto) 7.10 H Lymph # (Auto) 1.70 Walker # (Auto) 1.00 H Eos # (Auto) 0.05 Baso # (Auto) 0.03 Abs Immat Gran (auto) 0.02 Imm/Tot Granulo (auto) 0.2 Sodium 140 Potassium 4.3 Chloride 100 Carbon Dioxide 24 Anion Gap 16 H BUN 22 Creatinine 1.1 Estimated Creat Clear 36.75 Estimated GFR 57 Glucose 87 Calcium 10.0 Magnesium 2.2 Total Bilirubin 0.5 Direct Bilirubin 0.3 AST 24 ALT 16 Alkaline Phosphatase 117 C-Reactive Protein 0.6 Total Protein 6.5 Albumin 4.2 SARS-CoV-2 Ag (Rapid) Negative
--- NOTE | 2025-02-11 15:39 | PC.SOCIAL ---
Addendum entered by JONH Caicedo 02/11/25 16:09: Packets faxed for assessment for in-pt mental health placement to [facility] and [facility]. Requested facilities call back to charge nurse with decision on admit or clinical questions. Original Note: Social work: Per MD order for in-pt mental health placement, called the following mental health facilities with the listed results: 1. [facility] - no beds at any of their facilities. 2. [facility] - [phone]. No beds in any of their facilities. [email or web address] ([facility]) [phone]. Can not consider pt due to need for assistance with ADL's. 4. [facility] [phone] - can fax packet and intake form to fax #[phone]. 5. [facility] [phone] - no beds available in any of their facilities. 6. [facility] - [phone] Can fax packet to fax#[phone]. driver utility worker to follow up as needed.
[2025-02-11 16:57] LABS: Acetaminophen* < 10.0 ug/mL (10.0-30.0)
--- NOTE | 2025-02-11 17:20 | PC.NURSE ---
Addendum entered by Bridgett Méndez RN 02/11/25 18:34: [facility] number [phone] ext [phone] Original Note: [facility] called. Faxing EKG per request. Updated on B/P & HR per request.
[2025-02-11 19:00] VITALS: BP 144/105; PULSE 110; RESP 16; TEMP 36.7; O2SAT 95
--- NOTE | 2025-02-11 20:34 | PC.NURSE ---
[facility] has declined patient for medical reasons.
[2025-02-11] MEDS: NORTRIPTYLINE HCL 25 MG CAPSULE PO (21:14)
--- NOTE | 2025-02-11 22:29 | PC.NURSE ---
End of Shift: Patient pleasant and cooperative. Afebrile. Denies pain. Up with SBA, walker and gait belt. Up walking in hallway x1. Tolerating regular diet with no nausea. 1:1 with SHANIQUA throughout shift.
[2025-02-11 23:00] VITALS: BP 157/87; PULSE 122; RESP 18; TEMP 36.8; O2SAT 96
[2025-02-12] MEDS: MELATONIN 3 MG TABLET PO ×2 (00:31→21:32)
[2025-02-12 02:54] VITALS: BP 121/86; PULSE 95; RESP 18; TEMP 36.8; O2SAT 100
--- NOTE | 2025-02-12 05:06 | PC.NURSE ---
Patient 1:1 throughout shift for suicide precautions. patient remained safe and slept through night without issues. Patient utilized purewic per request. VSS.
[2025-02-12 07:45] VITALS: BP 147/98; PULSE 112; RESP 20; TEMP 36.6; O2SAT 96
[2025-02-12] MEDS: LEVOTHYROXINE 75 MCG TABLET PO (08:10)
[2025-02-12] MEDS: BENZTROPINE MESYLATE 1 MG TABLET 0.5 MG PO ×2 (08:10→21:30)
[2025-02-12] MEDS: BUSPIRONE 10 MG TABLET PO ×2 (08:10→21:32)
[2025-02-12] MEDS: SODIUM CHLORIDE 0.9 % (FLUSH) 10 ML SYRINGE 5 ML IVF (08:10)
[2025-02-12] MEDS: METFORMIN 500 MG TABLET PO (08:10)
--- NOTE | 2025-02-12 08:36 | PC.NURSE ---
Patient has just finished eating breakfast is sitting up and watching tv.
--- NOTE | 2025-02-12 08:42 | PC.NURSE ---
PT in to work with patient
--- NOTE | 2025-02-12 09:11 | PC.NURSE ---
Dr. Lopez in to see patient
--- NOTE | 2025-02-12 10:18 | PM.IMPN1 ---
Assessment and Plan Assessment and plan (1) Suicide attempt: Problem comment: 02/09 - unknown # of Tylenol PM, risperidone Acetaminophen level undetectable on 02/10 when her care team became aware of the attempt (which was at home 02/09) Medically stable --Spoke with Dr. Ibanez from [facility] who is her outpatient psychiatrist the morning of 02/11 with the patient. The psychiatrist, hospitalist and the patient all agreed she needs to be placed in inpatient psych secondary to her ongoing and worsening mental health. She is currently in crisis related to housing insecurity, ongoing divorce, ongoing health concerns and new personal loss. She needs med adjustments and therapy in a secure 24/7 unit. Status: Acute (2) Severe anxiety: Problem comment: -housing instability has triggered worsening anxiety and suicide attempt and ongoing ideation Status: Acute (3) Bipolar disorder: Problem comment: -Spoke with Dr. Ibanez from [facility] who is her outpatient psychiatrist this morning with the patient. The psychiatrist, hospitalist and the patient all agreed she needs to be placed in inpatient psych secondary to her ongoing and worsening mental health. She is currently in crisis related to housing insecurity, ongoing divorce, ongoing health concerns. She needs med adjustments and therapy. -Hospitalized at [facility] from October 28 to January 09 2025 for bipolar disorder, depression, generalized anxiety. Her psychiatrist at [facility] (Dr. Ibanez) feels like she is not getting better. Significant stress from ongoing difficult divorce and housing security and personal loss Status: Acute (4) Hx of multiple sclerosis: Problem comment: Has chronic stable multiple sclerosis with recurrent episodes of weakness which are thought to be pseudo flares of multiple sclerosis. MRI findings from [facility] February 06 admission showed stable demyelinating lesions without active lesions. Status: Acute (5) Hypothyroidism: Problem comment: - stable, continue home meds Status: Acute (6) Hypertension: Problem comment: - stable, continue home medications Status: Acute Subjective Date Seen: 02/12/25 Interval history: Daily Progress Note - Hospital Medicine #: 3 CC: Suicidal attempt, suicidal ideation. Chronic but stable multiple sclerosis. Chronic HTN. 24 HOUR UPDATE: Arlene was admitted 02/10. She reports increased strength and is moving at her baseline now. The OD with Tylenol PM and respiradone have been metabolized and she is more alert today. 02/11 - Serendipitously, I rounded on 02/11 at the same time she was having a telephone f/u meeting with her outpatient [facility] psychiatrist, Dr. Ibanez. The three of us conferenced. We concluded that her physical symptoms were from the OD and her mental health spiral. He recommended with my agreement that inpatient psych unit placement is in her best interest. She reported directly to me that she feels hopeless and would likely end her life if we discharged her. Direct observation and safety protocols were instituted. She did not tell the ER that she had attempted suicide on the evening of 02/09. This was the same day she was discharged from [facility]. She reports to us that she ?wanted to end it all?. She states that she took numerous Tylenol p.m. and 3-4 times her normal evening dose of risperidone. She awoke the next morning, 02/10 with increased weakness and fatigue. Her current Renter told her she needed to find a new place to live. This housing insecurity along with her mental health crisis precipitated the call to EMS. She was brought to our emergency room. However, she did not report the overdose or increasing mental health crises to our ER doc. she simply stated that she was weak from the MS and could not stay in her current housing situation. This morning she is working with PT and OT. Her exam is more consistent today. She is able to move from her bed to the bathroom on her own. Notable Labs, Micro, Rads, Interventions: All her labs drawn this morning are normal. Acetaminophen level on 02/10 was undetectable. Objective: Withdrawn, soft-spoken. Not agitated. Cooperative. Vitals: Hypertensive, tachycardic likely related to anxiety see above Lungs: Clear. Cardiac: S1S2. Musculoskeletal/neurologic: There has been no changes in her exam since admission. I agree that her strength testing in all 4 extremities is appropriately symmetric. She has poor muscle mass and generalized weakness. There are no obvious focal weakness. She has intact pedal pulses. Disposition/Potential discharge - She needs inpatient treatment. She has been medically cleared/stabilized. Today I spent 50 minutes seeing the patient, reviewing Expanse and EPIC notes/diagnostics, discussing the care plan with our care time that includes social work, PT/OT, pharmacy, RT, penitentiary and documenting my impressions and plan in the medical record. Exam Const: Vital Signs, click to edit/add: Vital Signs - 24 hr 02/11/25 11:00 02/11/25 15:00 02/11/25 15:00 Temperature 98.2 F 98.5 F Pulse Rate [Pulse Oximeter] 116 H 108 H 108 H Respiratory Rate 16 16 16 Blood Pressure [Ri ght Arm] 131/103 H 143/105 H Pulse Oximetry 96 93 Oxygen Delivery Me thod Room Air Room Air 02/11/25 19:00 02/11/25 23:00 02/11/25 23:00 Temperature 98.1 F 98.3 F Pulse Rate [Pulse Oximeter] 110 H 122 H 122 H Respiratory Rate 16 18 18 Blood Pressure [Ri ght Arm] 144/105 H 157/87 H Pulse Oximetry 95 96 Oxygen Delivery Me thod Room Air Room Air 02/12/25 02:54 02/12/25 07:45 Temperature 98.3 F 97.9 F Pulse Rate [Pulse Oximeter] 95 112 H Respiratory Rate 18 20 Blood Pressure [Ri ght Arm] 121/86 147/98 H Pulse Oximetry 100 96 Oxygen Delivery Me thod Room Air Room Air Labs Labs: Laboratory Results - last 24 hr 02/11/25 02/11/25 02/11/25 05:54 11:41 15:42 Acetaminophen < 10.0 SARS-CoV-2 Ag (Rapid) Negative Lab Acknowledgement Test Added
--- NOTE | 2025-02-12 10:18 | PC.SOCIAL ---
[facility] declined pt. due to her MS. Even though pt. is independent they are not staffed to do any kind of assistance even SBA if pt. has episodes of weakness. [facility] in [place] has a bed and is assessing.
--- NOTE | 2025-02-12 10:47 | PC.NURSE ---
patient up and ambulate over and sat up in the recliner
[2025-02-12 11:00] VITALS: BP 144/111; PULSE 121; RESP 20; TEMP 37; O2SAT 96
[2025-02-12] MEDS: METOPROLOL TARTRATE 25 MG TABLET 12.5 MG PO ×2 (11:07→21:28)
--- NOTE | 2025-02-12 12:28 | PC.NURSE ---
Patient just ordered lunch
--- NOTE | 2025-02-12 13:45 | PC.SOCIAL ---
Addendum entered by ZULMA CaicedoSW 02/12/25 14:05: Met with pt who states there was a civil commitment in place during her in-pt mental health stay but that it ended in the end of September 2024. Pt states she does not know what county it was through and she does not have any paperwork regarding this. Searched the public access [place] court records online ([facility]) and found no record of a civil commitment for this patient. Original Note: Social work: Per psychiatry note questioning whether a civil commitment is in place for this patient, called [facility] social work supervisor, Anjana Rothman, who searched the computer system and stated there is no record of a civil commitment for this patient.
--- NOTE | 2025-02-12 14:23 | PC.NURSE ---
End of Shift Note: Patient has been alert and orientated. Has been up and about in the room with just SBA. Did sit up in the chair for a bit. No behaviors noted.
[2025-02-12 15:15] VITALS: BP 142/100; PULSE 92; RESP 20; TEMP 36.7; O2SAT 97
--- NOTE | 2025-02-12 15:19 | PC.SOCIAL ---
Inpatient Mental Health Beds called today for availability: [facility]-Declined pt. due to her SBA and MS. They cannot accommodate anyone on their floor that may need ADL or ambulation assistance. [facility]--Declined pt. due to her SBA and MS. They cannot accommodate anyone on their floor that may need ADL or ambulation assistance. [facility]-Declined pt. due to their current his acuity. (Can call back tomorrow to see if their acuity changes) [place]-On divert [facility] [place]-No beds (can call back tomorrow if they have discharges) [facility] [place] beds [facility] beds [facility] is assessing. They questioned patients high blood pressure. The physicians addendum was sent. Referral sent to [facility] at [phone], fax# [phone]. If [facility] beds not called yet are [place], and [place]. Next can try geriatric bed at [facility] in [place].
--- NOTE | 2025-02-12 15:36 | PC.SOCIAL ---
Updated pt. on the bed search for inpatient beds and that no beds locally have been found. Pt. states is she is sent to a hospital father away she will need transportation assistance to return back to [place].
[2025-02-12 19:00] VITALS: BP 123/90; PULSE 106; RESP 20; TEMP 36.7; O2SAT 97
--- NOTE | 2025-02-12 20:24 | PC.NURSE ---
Pt up with SBA, gait belt, and 4 wheel walker, which is her baseline to BR and in ortiz. Denies pain. No behaviors; quiet and cooperative with cares.
[2025-02-12] MEDS: NORTRIPTYLINE HCL 25 MG CAPSULE PO (21:30)
[2025-02-12 23:00] VITALS: BP 123/90; PULSE 106; RESP 20; TEMP 36.7; O2SAT 97
[2025-02-13 02:18] VITALS: BP 105/72; PULSE 83; RESP 15; TEMP 36.8; O2SAT 96
--- NOTE | 2025-02-13 04:54 | PC.NURSE ---
Patient ambulates with one assist, gait belt , and walker. She has been a 1;1
--- NOTE | 2025-02-13 04:55 | PC.NURSE ---
Patient 1:1 with BROADCAST CHECKER entire shift due to suicide ideations.se was cooperative and made no suicidal statements this shift to me. she transfers with SBA, gait belt and walker. Patient utilized prn medications for sleep. [place] declined transfer yesterday but will reassess today, they said to reach out after 0900.
[2025-02-13] MEDS: LEVOTHYROXINE 75 MCG TABLET PO (08:42)
[2025-02-13] MEDS: METFORMIN 500 MG TABLET PO (08:42)
[2025-02-13] MEDS: BUSPIRONE 10 MG TABLET PO (08:42)
[2025-02-13] MEDS: BENZTROPINE MESYLATE 1 MG TABLET 0.5 MG PO (08:42)
[2025-02-13] MEDS: METOPROLOL TARTRATE 25 MG TABLET 12.5 MG PO (08:42)
[2025-02-13] MEDS: SODIUM CHLORIDE 0.9 % (FLUSH) 10 ML SYRINGE 5 ML IVF (08:44)
[2025-02-13 08:45] VITALS: BP 115/80; PULSE 100; RESP 16; TEMP 36.9; O2SAT 93
--- NOTE | 2025-02-13 09:45 | PC.SOCIAL ---
Addendum entered by JONH Caicedo 02/13/25 13:25: Received call back from [facility] intake, Marin, stating there is no available bed for this patient today, but if there was a bed, she would be appropriate. Recommended hospital call back to [facility] tomorrow at 11:00 am and ask about bed available. Called should state pt has been evaluated and is appropriate per [place] if there is a bed. This should speed up the process if there is a bed available. transplant worker to continue to look for mental health in-pt bed. Original Note: Social work: Called [facility] and spoke with Marin who confirmed they are reviewing will new information he has obtained from the nurse and our provider this morning and will call back with decision on admit. transplant worker to follow up as needed.
[2025-02-13 11:00] VITALS: BP 129/90; PULSE 103; RESP 16; TEMP 37.1; O2SAT 92
--- NOTE | 2025-02-13 11:18 | PC.NURSE ---
instructional assistant observed patient while she was on the toilet she was digging in her rectom. Getting BM all on her fingers. Patient asked to use the restroom several times in a row. once got to the restroom she said she didn't have to go. Patient then went for a walk in the hallway then back to her recliner.
--- NOTE | 2025-02-13 11:57 | PC.NURSE ---
Patient said she needed to use the restroom to have a BM. Patients sits on the toilet with her knees up on the toilet rim. She continues to dig in her rectum.
--- NOTE | 2025-02-13 13:54 | PC.SOCIAL ---
Addendum entered by JONH Caicedo 02/13/25 15:52: [facility] and spoke with Boris who confirmed they have received the fax and are reviewing it. Shae to call back with decision on admission to med/surg nurse. Original Note: Discharge planning: Called [facility] intake [phone] and spoke with Carmelo who states they are aware of this patient from her psychiatrist and requested information be faxed for evaluation for admit to in-pt mental health at [place]. Fax requested information (fax [phone]) and awaiting call back with decision on admit. grounds maintenance worker to follow up as needed.
[2025-02-13 14:59] VITALS: BP 122/96; PULSE 112; RESP 16; TEMP 36.9; O2SAT 96
[2025-02-13 15:00] VITALS: RESP 16
--- NOTE | 2025-02-13 15:03 | PM.IMPN1 ---
Assessment and Plan Assessment and plan (1) Suicide attempt: Problem comment: 02/09 - unknown # of Tylenol PM, risperidone Acetaminophen level undetectable on 02/10 when her care team became aware of the attempt (which was at home 02/09) Medically stable --Spoke with Dr. Ibanez from [place] who is her outpatient psychiatrist the morning of 02/11 with the patient. The psychiatrist, hospitalist and the patient all agreed she needs to be placed in inpatient psych secondary to her ongoing and worsening mental health. She is currently in crisis related to housing insecurity, ongoing divorce, ongoing health concerns and new personal loss. She needs med adjustments and therapy in a secure 24/7 unit. 02/13 awaiting inpatient psychiatric placement Status: Acute (2) Severe anxiety: Problem comment: -housing instability has triggered worsening anxiety and suicide attempt and ongoing ideation Status: Acute (3) Bipolar disorder: Problem comment: -Spoke with Dr. Ibanez from [place] who is her outpatient psychiatrist this morning with the patient. The psychiatrist, hospitalist and the patient all agreed she needs to be placed in inpatient psych secondary to her ongoing and worsening mental health. She is currently in crisis related to housing insecurity, ongoing divorce, ongoing health concerns. She needs med adjustments and therapy. -Hospitalized at [facility] from October 28 to January 09 2025 for bipolar disorder, depression, generalized anxiety. Her psychiatrist at [facility] (Dr. Ibanez) feels like she is not getting better. Significant stress from ongoing difficult divorce and housing security and personal loss Status: Acute (4) Hx of multiple sclerosis: Problem comment: Has chronic stable multiple sclerosis with recurrent episodes of weakness which are thought to be pseudo flares of multiple sclerosis. MRI findings from [facility] February 06 admission showed stable demyelinating lesions without active lesions. Ambulates independently with walker Status: Acute (5) Hypothyroidism: Problem comment: - stable, continue home meds Status: Acute (6) Hypertension: Problem comment: Pt has been mildly hypertensive and mildly tachycardic. Likely related to anxiety and baseline hypertension. Metoprolol 12.5mg twice daily. Status: Acute Plan Awaiting inpatient psychiatric placement Total Time Spent Total Time Spent: Today I spent 45 minutes seeing the patient, reviewing [facility] and EPIC notes/diagnostics, discussing the care plan with our care time that includes social work, PT/OT, pharmacy, RT, nursing home and documenting my impressions and plan in the medical record. Subjective Date Seen: 02/13/25 Interval history: Patient is seen sitting up in a chair by the window. After introducing myself, she tells me she feels well enough to go home and no longer needs to stay here. We are currently waiting on inpatient psychiatric placement and active suicidal ideation. She otherwise denies headache or dizziness currently. Denies chest pain or shortness of breath. Eating orals, minimally, poor appetite without nausea vomiting. Is actively walking in the halls with a walker. Exam Narrative: Exam Narrative: PHYSICAL EXAM General: Pleasant, NAD Cardiovascular: RRR Pulmonary: No dyspnea Neurological: Alert, poor insight, understanding Extremities: No gross joint deformity or swelling. AROMI Skin: Warm, dry. Const: Vital Signs, click to edit/add: Vital Signs - 24 hr 02/12/25 15:15 02/12/25 15:15 02/12/25 19:00 Temperature 98.1 F 98.1 F Pulse Rate [Pulse Oximeter] 92 92 106 H Respiratory Rate 20 20 20 Blood Pressure [Ri ght Arm] 142/100 H 123/90 H Pulse Oximetry 97 97 Oxygen Delivery Me thod Room Air Room Air 02/12/25 23:00 02/12/25 23:00 02/13/25 02:18 Temperature 98.1 F 98.3 F Pulse Rate [Pulse Oximeter] 106 H 106 H 83 Respiratory Rate 20 20 15 Blood Pressure [Ri ght Arm] 123/90 H 105/72 Pulse Oximetry 97 96 Oxygen Delivery Me thod Room Air Room Air 02/13/25 08:45 02/13/25 11:00 02/13/25 14:59 Temperature 98.4 F 98.7 F 98.4 F Pulse Rate [Pulse Oximeter] 100 103 H 112 H Respiratory Rate 16 16 16 Blood Pressure [Ri ght Arm] 115/80 129/90 H 122/96 H Pulse Oximetry 93 92 96 Oxygen Delivery Me thod Room Air Room Air Room Air
--- NOTE | 2025-02-13 16:00 | PC.NURSE ---
Pt is doing well today. VSS, denies pain, A&Ox4, pleasant, calm and cooperative. Pt is on 1:1 supervision d/t suicide ideation. Pt is ambulating independently with walker. Tolerating regular diet. Pt with voiding without concerns and had a bowel movement today.
--- NOTE | 2025-02-13 16:32 | PC.SOCIAL ---
Discharge planning: [facility] is currently assessing pt for admission. If [facility] declines admission, below is a list of hospitals with appropriate in-pt mental health care that can be called regarding bed availability and to request assessment for admission. 1.? [facility] ? [phone] (02/13/25 are assessing for admit) 2.? [facility] ? [phone] Has not yet had a bed available to assess. 3.? [facility] ([place], [facility]) [place] declined 02/11 due to MS diagnosis. [facility] has not yet had a bed available to assess. 4.? [phone]? Has not yet had a bed available to assess. 5.? [facility] [phone] Has not yet had a bed available to assess. 6.? [facility] 02/14/25 assessed and appropriate for admit but no beds available. Call back every morning at 11:00am. 7.? [facility] [phone] Has not yet had a bed available to assess. 8.? [facility] [phone] Has not yet had a bed available to assess. 9.? [facility] ? [facility]??? [phone] Has not yet had a bed available to assess. 10.? ?[facility]?? [phone] Has not yet had a bed available to assess. 11.? [facility] ? [facility] in [place] [phone] Has not yet had a bed available to assess. (only accepts voluntary patients ? no hold) 12.? [facility]? [phone] Has not yet had a bed available to assess. 13.? ?[facility] [phone] Has not yet had a bed available to assess. 14.? ?[facility] in [place] [phone] Has not yet had a bed available to assess. 15.? ?[facility] ? [place] [phone] Has not yet had a bed available to assess. 16.? ?[facility] [phone] On 02/12/25, declined due to MS diagnosis, pt moving better now. 17.? [facility] ? [facility]ost[facility] Patel [phone] Has not yet had a bed available to assess.
--- NOTE | 2025-02-13 18:28 | P.DS_ITS ---
DS: Providers Provider Date Seen: 02/13/25 Date of admission: 02/10/25 20:26 Primary care physician: Nguyễn Orta MD Admitting Clinician: Eleno Gonsalez MD Consults: 02/10/25 20:50 Consult to Occupational Therapy [CONS] Routine Comment: Reason(s) for OT Consult:: Evaluate and Treat Any Restrictions?:: No Restrictions Consult to Physical Therapy [CONS] Routine Comment: Reason(s) for PT Consult:: Evaluate and Treat Any Restrictions?:: No Restrictions Consult to Communications Officer [CONS] Routine Comment: Reason for Consult:: Discharge Planning Needs 02/10/25 21:04 Consult to Communications Officer [CONS] Routine Comment: Reason for Consult:: Home Health Assessment Attending Physician on discharge: Matilda Mccoy MD Date of Discharge: 02/13/25 DS: Diagnosis Discharge Diagnosis (1) Suicide attempt: Status: Acute Problem details: 02/09 - unknown # of Tylenol PM, risperidone Acetaminophen level undetectable on 02/10 when her care team became aware of the attempt (which was at home 02/09) Medically stable --Spoke with Dr. Ibanez from [place] who is her outpatient psychiatrist the morning of 02/11 with the patient. The psychiatrist, hospitalist and the patient all agreed she needs to be placed in inpatient psych secondary to her ongoing and worsening mental health. She is currently in crisis related to housing insecurity, ongoing divorce, ongoing health concerns and new personal loss. She needs med adjustments and therapy in a secure 24/7 unit. 02/13: accepted by [facility] (2) Severe anxiety: Status: Acute Problem details: -housing instability has triggered worsening anxiety and suicide attempt and ongoing ideation (3) Bipolar disorder: Status: Acute Problem details: -Spoke with Dr. Ibanez from [place] who is her outpatient psychiatrist this morning with the patient. The psychiatrist, hospitalist and the patient all agreed she needs to be placed in inpatient psych secondary to her ongoing and worsening mental health. She is currently in crisis related to housing insecurity, ongoing divorce, ongoing health concerns. She needs med adjustments and therapy. -Hospitalized at [facility] from October 28 to January 09 2025 for bipolar disorder, depression, generalized anxiety. Her psychiatrist at [facility] (Dr. Ibanez) feels like she is not getting better. Significant stress from ongoing difficult divorce and housing security and personal loss (4) Hypertension: Status: Acute Problem details: Pt has been mildly hypertensive and mildly tachycardic. Likely related to anxiety and baseline hypertension. Metoprolol 12.5mg twice daily. (5) Hx of multiple sclerosis: Status: Acute Problem details: Has chronic stable multiple sclerosis with recurrent episodes of weakness which are thought to be pseudo flares of multiple sclerosis. MRI findings from [facility] February 06 admission showed stable demyelinating lesions without active lesions. Ambulates independently with walker (6) Hypothyroidism: Status: Acute Problem details: - stable, continue home meds DS: Summary Hospital Course Hospital Course: Arlene was admitted to the hospital on 02/10/2025; was complaining of weakness in the setting of known MS without objective evidence of a flare. During stay, she endorsed suicidal ideation and plan in addition to an attempt. Worked with therapies and was able to ambulate without assistance utilizing a walker, comorbidities above remained stable. She remained in the hospital awaiting psych placement, accepted at [facility] on 02/13/2025. Time Spent with Patient Time attestation: Total time spent providing and/or coordinating discharge services: Time spent: Greater than 30 minutes Specific discharge activities: medication reconciliation, paperwork, forms Exam Narrative: Exam Narrative: See note from 02/13/25 am for formal exam Const: Vital Signs, click to edit/add: Vital Signs - 24 hr 02/12/25 19:00 02/12/25 23:00 02/12/25 23:00 Temperature 98.1 F 98.1 F Pulse Rate [Pulse Oximeter] 106 H 106 H 106 H Respiratory Rate 20 20 20 Blood Pressure [Ri ght Arm] 123/90 H 123/90 H Pulse Oximetry 97 97 Oxygen Delivery Me thod Room Air Room Air 02/13/25 02:18 02/13/25 08:45 02/13/25 11:00 Temperature 98.3 F 98.4 F 98.7 F Pulse Rate [Pulse Oximeter] 83 100 103 H Respiratory Rate 15 16 16 Blood Pressure [Ri ght Arm] 105/72 115/80 129/90 H Pulse Oximetry 96 93 92 Oxygen Delivery Me thod Room Air Room Air Room Air 02/13/25 14:59 02/13/25 15:00 Temperature 98.4 F Pulse Rate [Pulse Oximeter] 112 H Respiratory Rate 16 16 Blood Pressure [Ri ght Arm] 122/96 H Pulse Oximetry 96 Oxygen Delivery Me thod Room Air Discharge Plan Discharge Disposition: [facility] Date of Admission: 02/10/25 20:26 Attending Provider on Discharge: Matilda Mccoy Primary Care Provider: Nguyễn Orta Discharge Orders: Transfer of Care to Other Hospital (ORDER); Ordered 02/13/25 Ordered By: Matilda Mccoy Oxygen: No Urinary Catheter: No Services not available here: Psychiatry
--- NOTE | 2025-02-13 19:20 | PC.NURSE ---
Discharge: Cooperative, 1:1 SHANIQUA due to suicidal ideation. Ambulating independently with walker. Tolerating regular diet. ?Transfered to higher level of care.
== END 2025-02-13 19:00 | disposition short-term general hospital (02) ==
LOC: ED 19:42 → MEDSURG 20:26
PROVIDERS: Family Medicine; Admitting Provider Family Medicine; Emergency Provider Emergency Medicine Emergency Medical Services; PCP Internal Medicine; Visit Provider Family Medicine
DX: R45.851 Suicidal ideations (principal); E03.9 Hypothyroidism, unspecified; F32.A Depression, unspecified; F41.9 Anxiety disorder, unspecified; I10 Essential (primary) hypertension; R32 Unspecified urinary incontinence; Z87.39 Personal history of other diseases of the musculoskeletal system and connective tissue; R00.0 Tachycardia, unspecified; Z59.819 Housing instability, housed unspecified
CPT/HCPCS: 36415; 51798; 80048; 80076; 80143; 83735; 85025; 86140; 87426; 97110; 97116; 97162; 97165; 97530; 97535; 99284; 99285; A9270; G0378

== ENCOUNTER 2025-02-13 19:07 | Outpatient (CLI) | payer MEDICARE, SELFPAY | END 2025-02-13 19:08 | disposition home or self-care (01) | LOC: AMB 02-16 18:28 | PROVIDERS: PCP Internal Medicine; Visit Provider Family Medicine | DX: R45.851 Suicidal ideations (principal) | CPT/HCPCS: A0425; A0428 ==